=== PATIENT | male | born 1970 | race African-American/Black ===

== ENCOUNTER 2017-10-30 05:25 | Day surgery (SDC) | payer OTHER ==
[~2017-10-30] VITALS: Ht 172.7 cm; Wt 80.7 kg
--- NOTE | ~2017-10-30 | OP ---
PATIENT NAME: JUAN STREET MEDICAL RECORD: [id number] :70 LOCATION:DJonathanOPS ADMISSION DATE: SURGEON: JM COMER MD DATE OF OPERATION: 10/30/2017 PREOPERATIVE DIAGNOSIS: End-stage renal disease without chronic access for hemodialysis. POSTOPERATIVE DIAGNOSES: End-stage renal disease without chronic access for hemodialysis with several large side branches. PROCEDURES: 1. Left upper extremity primary arteriovenous fistula for hemodialysis access. 2. Open ligation of side branches times 2. SURGEON: Jm Comer MD PLUNGER SHOVEL OPERATOR: None. BLOOD LOSS: Minimal. ANESTHESIA: General. COMPLICATIONS: None. The risks, possible complications and alternatives to the procedure were explained to the patient. He elects to proceed. OPERATIVE COURSE: The patient was conveyed to the operating room electively on 10/30/2017. General anesthesia was induced by the anesthesia staff. The left upper extremity was abducted at 90 degrees to the patient's trunk. I interrogated the left upper extremity with a sterile hand held ultrasound. The patient had a very high brachial artery bifurcation into the radial and arterial branches. This was several inches above the elbow. There were also several large side branches on the medial aspect of the left forearm. A transverse incision was accomplished in the left cubital fossa. Sharp dissection was carried down to the level of a generous cephalic vein, which was of excellent quality. There were paired antebrachial veins, which were ligated doubly. There was a deep branch, which was ligated as well. The median basilic vein was going to be our target vein. This was ligated in the medial aspect of the arm and then divided proximal to this. I then bevelled the median basilic vein. I dissected down to the brachial artery, which was of good quality. It was encircled with vessel loops. Intravenous heparin was given. A longitudinal arteriotomy was accomplished. I punched out some ovals in the artery with an aortic punch. A side-to-end arteriovenous anastomosis was then fashioned with a running 7-0 Prolene suture. I flushed out through the fistula, which was a radial artery to median basilic fistula. The retrograde flow was out through the median basilic vein, a crossover to the cephalic vein where there was antegrade flow. There was an excellent thrill. Babatunde was added for additional hemostasis. There were 2 side branches in the forearm. Transverse incisions were accomplished over these side branches and I dissected down to the venous OPERATIVE REPORT [id number] YENIFER,EDWARD structures, which were encircled and tied with small silk ties. The 2 smaller incisions were closed with an interrupted intracuticular 4-0 Vicryls. The main incision was closed with interrupted 3-0 Vicryls. Then, a running intracuticular 4-0 Vicryl. Sterile dressings were applied. The patient was then extubated and conveyed to the post-anesthesia care unit where he was in stable condition. I will plan that he will be dismissed back to the [place] [facility] with hydrocodone for pain. There is no need for him to follow up with me in the [place] [facility] unless he develops a complication related to this operative procedure. TRANSINT:[id number] Voice Confirmation ID: [id number] DOCUMENT ID: [id number] JM COMER MD at 1717 CC: [id number] DICTATION DATE: 10/30/17 1031 SUBSTATION OPERATOR CHIEF: 10/30/17 1055 [facility] 10/30/17 [id number] [place] [address]
[2017-10-30 06:29] LABS: BASOPHILS 0.6 % (0-2); EOSINOPHILS 3.5 % (0-7); HEMATOCRIT 42.1 % (42.0-54.0); IMMATURE GRANULOCYTES 0.2 % (0-5); LYMPHOCYTES 22.1 % (15-50); MCH 28.3 pg (26.0-34.0); MCHC 33.3 g/dL (31.0-37.0); MCV 85.2 fL (80.0-100.0); MEAN PLATELET VOLUME 10.5 fL (7.4-10.4); MONOCYTES 5.8 % (2-11); NEUTROPHILS 67.8 % (40-80); PLATELET COUNT 179 10x3/uL (130-400); RBC 4.94 10x6/uL (4.20-6.10); RDW 14.6 % (11.5-14.5); WBC 6.5 10x3/uL (4.8-10.8)
[2017-10-30] MEDS ORDERED: BAYER CHEWABLE81 MG PO ×2 (06:39→19:52)
[2017-10-30] MEDS ORDERED: LIPITOR20 MG PO ×2 (06:40→19:53)
[2017-10-30] MEDS ORDERED: CARDIZEM CD240 MG (06:41)
[2017-10-30] MEDS ORDERED: COREG25 MG (06:41)
[2017-10-30] MEDS ORDERED: ISOSORBIDE MONO30 M1 (06:42)
[2017-10-30] MEDS ORDERED: HYDRALAZINE HCL50 MG (06:42)
[2017-10-30] MEDS ORDERED: COZAAR100 MG (06:43)
[2017-10-30] MEDS ORDERED: METOLAZONE2.5 MG (06:44)
[2017-10-30] MEDS ORDERED: XALATAN 0.0052.5 ML (06:44)
[2017-10-30 06:47] LABS: CARBON DIOXIDE 25.1 mmol/L (21.0-32.0); CREATININE - SERUM 12.9 mg/dL (0.6-1.3)
[2017-10-30 06:48] LABS: POTASSIUM - SERUM 6.1 mmol/L (3.5-5.1)
[2017-10-30] MEDS ORDERED: HUMULIN 70100 UNIT/1 SC ×2 (06:49→19:50)
[2017-10-30 07:03] LABS: APTT 30.1 SECONDS (22.8-39.4)
[2017-10-30 07:10] LABS: INR 0.99 (0.85-1.17); PROTIME 12.7 SECONDS (11.6-15.0)
[2017-10-30 07:19] VITALS: BP 199/118; Ht 172.7 cm; Wt 80.7 kg
[2017-10-30] MEDS ORDERED: HYDRALAZINE HCL50 MG PO (19:50)
[2017-10-30] MEDS ORDERED: BENZTROPINE MESY1 MG PO (19:51)
[2017-10-30] MEDS ORDERED: METOLAZONE2.5 MG PO (19:51)
[2017-10-30] MEDS ORDERED: HALDOL DECA100 MG/M1 IM (19:51)
[2017-10-30] MEDS ORDERED: ISOSORBIDE MONO30 M1 PO (19:52)
[2017-10-30] MEDS ORDERED: XALATAN 0.0052.5 ML EACH EYE (19:53)
[2017-10-30] MEDS ORDERED: COZAAR100 MG PO (19:53)
[2017-10-30] MEDS ORDERED: COREG 3.1253.125 MG PO (19:53)
[2017-10-30] MEDS ORDERED: CARDIZEM CD240 MG PO (19:54)
== END 2017-10-30 14:00 | disposition home or self-care (01) ==
LOC: D.OPS 05:25
PROVIDERS: Anesthesiology
DX: N18.6 End stage renal disease (principal); Z01.812 Encounter for preprocedural laboratory examination

== ENCOUNTER 2017-10-30 16:59 | Inpatient (IN) | payer MEDICAID ==
[~2017-10-30] VITALS: Ht 172.7 cm; Wt 782.7 kg
[~2017-10-30 16:59] MED LIST: BAYER CHEWABLE81 MG PO; CARDIZEM CD240 MG; COREG25 MG; COZAAR100 MG; HUMULIN 70100 UNIT/1 SC; HYDRALAZINE HCL50 MG; ISOSORBIDE MONO30 M1; LIPITOR20 MG PO; METOLAZONE2.5 MG; XALATAN 0.0052.5 ML
[2017-10-30 17:28] VITALS: BP 246/135
[2017-10-30 17:55] LABS: BASOPHILS 0.3 % (0-2); EOSINOPHILS 0.2 % (0-7); HEMATOCRIT 42.7 % (42.0-54.0); HEMOGLOBIN 14.2 g/dL (13.5-17.5); IMMATURE GRANULOCYTES 0.2 % (0-5); LYMPHOCYTES 6.5 % (15-50); MCH 28.3 pg (26.0-34.0); MCHC 33.3 g/dL (31.0-37.0); MCV 85.2 fL (80.0-100.0); MEAN PLATELET VOLUME 10.5 fL (7.4-10.4); MONOCYTES 1.8 % (2-11); PLATELET COUNT 183 10x3/uL (130-400); RBC 5.01 10x6/uL (4.20-6.10); RDW 14.8 % (11.5-14.5)
[2017-10-30 17:58] LABS: WBC 9.8 10x3/uL (4.8-10.8)
[2017-10-30 18:04] VITALS: BP 237/134
[2017-10-30 18:07] LABS: ALBUMIN 3.3 g/dL (3.4-5.0); BILIRUBIN - TOTAL 0.31 mg/dL (0.2-1.3); CALCIUM 7.9 mg/dL (8.5-10.1); CARBON DIOXIDE 23.2 mmol/L (21.0-32.0); PROTEIN - SERUM 7.3 g/dL (6.4-8.2)
[2017-10-30 18:22] LABS: POTASSIUM - SERUM 8.2 mmol/L (3.5-5.1)
[2017-10-30 19:33] VITALS: BP 238/132
[2017-10-30] MEDS ORDERED: HYDRALAZINE HCL50 MG PO (19:50)
[2017-10-30] MEDS ORDERED: HUMULIN 70100 UNIT/1 SC (19:50)
[2017-10-30] MEDS ORDERED: BENZTROPINE MESY1 MG PO (19:51)
[2017-10-30] MEDS ORDERED: METOLAZONE2.5 MG PO (19:51)
[2017-10-30] MEDS ORDERED: HALDOL DECA100 MG/M1 IM (19:51)
[2017-10-30] MEDS ORDERED: ISOSORBIDE MONO30 M1 PO (19:52)
[2017-10-30] MEDS ORDERED: BAYER CHEWABLE81 MG PO (19:52)
[2017-10-30] MEDS ORDERED: LIPITOR20 MG PO (19:53)
[2017-10-30] MEDS ORDERED: COREG 3.1253.125 MG PO (19:53)
[2017-10-30] MEDS ORDERED: XALATAN 0.0052.5 ML EACH EYE (19:53)
[2017-10-30] MEDS ORDERED: COZAAR100 MG PO (19:53)
[2017-10-30] MEDS ORDERED: CARDIZEM CD240 MG PO (19:54)
[2017-10-30 20:10] VITALS: BP 250/137
[2017-10-30 20:38] LABS: HEMATOCRIT 44.4 % (42.0-54.0); HEMOGLOBIN 14.8 g/dL (13.5-17.5)
[2017-10-30 21:34] VITALS: BP 248/132
[2017-10-30 23:08] VITALS: BP 179/112
[2017-10-31] VITALS (14 sets, daily range): BP systolic 102–171; BP diastolic 62–101; Ht 172.7 cm; Wt 782.7 kg
[2017-10-31 05:35] LABS: HEMATOCRIT 40.1 % (42.0-54.0); HEMOGLOBIN 13.2 g/dL (13.5-17.5)
[2017-10-31 08:36] LABS: HEMATOCRIT 39.1 % (42.0-54.0)
[2017-11-01 00:46] VITALS: BP 129/73
[2017-11-01 05:03] VITALS: BP 141/74
[2017-11-01 16:16] LABS: HEMATOCRIT 34.4 % (42.0-54.0); HEMOGLOBIN 11.6 g/dL (13.5-17.5); LYMPHOCYTES 17.6 % (15-50); MCH 28.4 pg (26.0-34.0); MCHC 33.7 g/dL (31.0-37.0); MCV 84.3 fL (80.0-100.0); MEAN PLATELET VOLUME 10.1 fL (7.4-10.4); NEUTROPHILS 73.6 % (40-80); PLATELET COUNT 180 10x3/uL (130-400); RBC 4.08 10x6/uL (4.20-6.10); RDW 14.3 % (11.5-14.5)
[2017-11-01 16:37] LABS: ANION GAP 16.4 mmol/L (8-16); CALCIUM 7.4 mg/dL (8.5-10.1); CARBON DIOXIDE 26.7 mmol/L (21.0-32.0); CREATININE - SERUM 13.8 mg/dL (0.6-1.3)
[2017-11-01 16:41] LABS: POTASSIUM - SERUM 6.1 mmol/L (3.5-5.1)
[2017-11-01 21:35] VITALS: BP 154/77
[2017-11-02 01:10] VITALS: BP 155/82
[2017-11-02 05:05] VITALS: BP 153/83
[2017-11-02 05:38] LABS: BASOPHILS 0.4 % (0-2); EOSINOPHILS 2.2 % (0-7); HEMATOCRIT 35.8 % (42.0-54.0); HEMOGLOBIN 11.9 g/dL (13.5-17.5); IMMATURE GRANULOCYTES 0.3 % (0-5); LYMPHOCYTES 19.9 % (15-50); MCH 28.1 pg (26.0-34.0); MCHC 33.2 g/dL (31.0-37.0); MCV 84.6 fL (80.0-100.0); MEAN PLATELET VOLUME 11.1 fL (7.4-10.4); MONOCYTES 7.6 % (2-11); NEUTROPHILS 69.6 % (40-80); PLATELET COUNT 180 10x3/uL (130-400); RBC 4.23 10x6/uL (4.20-6.10); RDW 14.4 % (11.5-14.5); WBC 6.7 10x3/uL (4.8-10.8)
[2017-11-02 05:47] LABS: ANION GAP 19.2 mmol/L (8-16); CALCIUM 7.6 mg/dL (8.5-10.1); CARBON DIOXIDE 24.6 mmol/L (21.0-32.0); CREATININE - SERUM 14.2 mg/dL (0.6-1.3)
[2017-11-02 06:02] LABS: POTASSIUM - SERUM 6.8 mmol/L (3.5-5.1)
[2017-11-02 08:16] VITALS: BP 152/66
[2017-11-02 15:29] VITALS: BP 138/72
== END 2017-11-02 20:03 | DRG 919 ==
LOC: D.ER 16:59 → D.EDHOLD 19:17 → D.M2 19:17 → D.ICU 19:17 → D.M2 19:17 → D.ICU 23:24 → D.M2 10-31 13:19
PROVIDERS: Emergency Medicine; Internal Medicine Nephrology
PROC: 5A1D70Z Performance of Urinary Filtration, Intermittent, Less than 6 Hours Per Day (ICD-10-PCS; principal; 2017-10-30)
DX: T85.838A Hemorrhage due to other internal prosthetic devices, implants and grafts, initial encounter (principal); N18.6 End stage renal disease; K92.0 Hematemesis; I12.0 Hypertensive chronic kidney disease with stage 5 chronic kidney disease or end stage renal disease; E11.22 Type 2 diabetes mellitus with diabetic chronic kidney disease; Z99.2 Dependence on renal dialysis; E11.40 Type 2 diabetes mellitus with diabetic neuropathy, unspecified; E87.5 Hyperkalemia; F31.9 Bipolar disorder, unspecified; Z91.15 Patient's noncompliance with renal dialysis; T88.4XXA Failed or difficult intubation, initial encounter

== ENCOUNTER → 2017-12-20 12:15 | Outpatient (CLI) | payer OTHER ==
[~2017-12-20] VITALS: Ht 172.7 cm; Wt 85.0 kg
--- NOTE | ~2017-12-20 | OP ---
PATIENT NAME: JUAN STREET MEDICAL RECORD: [id number] :70 LOCATION:D.CAT ADMISSION DATE: SURGEON: LALA BARNES MD DATE OF OPERATION: 12/20/2017 PROCEDURES: 1. Left heart catheterization. 2. Selective coronary angiography. 3. Left ventriculogram. 4. Intravascular ultrasound. INDICATION: Chest pain compatible with angina. PROCEDURE IN DETAIL: After informed consent was obtained and after detailed explanation of risks, benefits as well as alternative therapies, the patient elected to proceed with angiogram and heart catheterization. The right femoral area was prepped and draped in normal sterile fashion. Right femoral artery was cannulated via modified Seldinger technique with placement of 6-[place] Islander sheath. All catheters exchanged through this sheath. FINDINGS: The left ventriculogram was performed in standard 30-degree EHRNANDEZ view, reveals good cardiac wall motion throughout all segments. Overall ejection fraction estimated 60%. SELECTIVE CORONARY ANGIOGRAPHY: 1. Left main is with no significant angiographic disease. 2. Left anterior descending has a questionable stenosis; however, intravascular ultrasound revealed that this is only 50% in the mid vessel. 3. Left circumflex has moderate irregularities, but no flow-limiting stenosis. 4. Right coronary has moderate irregularities, but no flow-limiting stenosis. OVERALL IMPRESSION: Mild to moderate coronary artery disease present. No flow-limiting stenosis. Continue medical management of the coronary artery disease and cardiac risk factors. TRANSINT:[id number] Voice Confirmation ID: [id number] DOCUMENT ID: [id number] LALA BARNES MD at 1950 CC: [id number] DICTATION DATE: 12/20/17 1604 ROTARY VENEER MACHINE OPERATOR: 12/20/17 1643 DEP CLI 12/20/17 [place] [id number] [place] [id number]
--- NOTE | ~2017-12-20 | HEMODYNAMI ---
PATIENT:JUAN STREET MEDICAL RECORD: [id number] : 70 LOCATION:DESME ADMISSION DATE: 12/20/17 Generatedon:12/20/201716:07 Patient name: JUAN STREET Patient #: [id number] SSN: : 1970 Date of study: 12/20/2017 Page: Of Hemodynamic Procedure Report Patient Data Patient Demographics Procedure consent was obtained First Name: JUAN Gender: Male Last Name: YENIFER : 1970 Patient #: [id number] Age: 47 year(s) Race: Black Additional ID: [id number] Contact details [address]: [address] [place] [address] State: [place] City: [place] Zip code: [address] Past Medical History Allergies Allergen Reaction Date Comments Reported Other allergy 12/20/2017 LISINOPRIL Admission Admission Data Admission Date: 12/20/2017 Admission Time: 12:15 Lab Results Lab Result Date: 12/20/2017 Lab Result Time: 0:00 Biochemistry Name Units Result Min Max BUN mg/dl 24 --(----)-* 7 18 Creatinine mg/dl 5.7 --(----)-* 0.6 1.3 CBC Name Units Result Min Max Hemoglobin g/dl 10.3 *-(----)-- 13.5 17.5 Procedure Procedure Types Cath Procedure Diagnostic Procedure [facility] w/Coronaries FFR/IVUS Intra-Coronary IVUS Initial Procedure Description Procedure Date Procedure Date: 12/20/2017 Procedure Start Time: 15:51 Procedure End Time: 16:03 Procedure Staff Name Function Enrrique Cristina MD Performing Physician Leonela Veras RT Monitor Slim Boateng RN Nurse Marian Merritt RT Scrub Procedure Data Cath Procedure Fluoroscopy Diagnostic fluoroscopy Total fluoroscopy Time: 1.9 time: 1.9 min min Diagnostic fluoroscopy Total fluoroscopy dose: 535 dose: 535 mGy mGy Contrast Material Contrast Material Type Amount (ml) Isovue 300 64 Entry Location Entry Primary Successful Side Size Upsize Upsize Entry Closure Succes sful Closure Location (Fr) 1 (Fr) 2 (Fr) Remarks Device Remarks Femoral Right 5 Fr 6 Fr Exoseal artery Short Estimated blood loss: 5 ml Diagnostic catheters Device Type Used For End Catheter Placement MULTIPACK Pigtail 5 Fr Procedure catheter MULTIPACK JL 4.0 5Fr Procedure catheter MULTIPACK 3DRC 5Fr Procedure catheter Procedure Complications No complications Procedure Medications Medication Administration Route Dosage 0.9% NaCl I.V. 10 ml/hr Oxygen etCO2 Nasal cannula 2 l/min Heparin Flush Bag added to field 2 bags (1000units/500ml NS) Lidocaine 2% added to field 20 Versed I.V. 1 mg Fentanyl I.V. 50 mcg Versed I.V. 1 mg Fentanyl I.V. 50 mcg Hemodynamics Rest HGB: 10.3 (g/dl) Heart Rate: 86 (bpm) Snapshots Pre Cath Intra NCS Post Cath Vital Signs Time Heart Resp SPO2 etCO2 NIBP (mmHg) Rhythm Pain Sedation Rate (ipm) (%) (mmHg) Status Level (bpm) 15:31:58 83 19 97 28.5 205/109(174) NSR 0 (11) 10(A) , No pain 15:36:51 81 27 97 19.5 184/110(146) NSR 0 (11) 10(A) , No pain 15:41:44 77 23 97 26.9 194/100(161) NSR 0 (11) 10(A) , No pain 15:46:35 76 20 98 26.2 192/100(163) NSR 0 (11) 10(A) , No pain 15:51:26 78 20 98 25.5 178/103(150) NSR 0 (11) 10(A) , No pain 15:56:14 77 16 98 29.9 191/104(157) NSR 0 (11) 9(A) , No pain 16:01:01 77 20 99 28.4 186/109(155) NSR 0 (11) 9(A) , No pain Medications Time Medication Route Dose Verified Delivered Reason Notes Eff ectiveness by by 15:33:43 0.9% NaCl I.V. 10 Slim Slim Per ml/hr Tasneem oscar RN RN 15:33:52 Oxygen etCO2 2 Slim Slim Per Nasal l/min Tasneem Boateng physician cannula RN RN 15:34:03 Heparin Flush added 2 Slim Slim used for Bag to bags Lorigan Lorigan procedure (1000units/500ml field RN RN NS) 15:34:15 Lidocaine 2% added 20ml Slim Slim for local to vial Lorigan Lorigan anesthetic field RN RN 15:48:35 Versed I.V. 1 mg Slim Slim for Lorigan Lorigan sedation RN RN 15:48:45 Fentanyl I.V. 50 Slim Slim for mcg Lorigan Lorigan sedation RN RN 15:53:39 Versed I.V. 1 mg Slim Slim for Lorigan Lorigan sedation RN RN 15:53:46 Fentanyl I.V. 50 Slim Slim for mcg Lorigan Lorigan sedation RN nuclear medicine technician Log Time Note 15:13:04 Time tracking: Regular hours (M-F 7:00 - 5:00) 15:13:10 Plan of Care:Hemodynamics will remain stable., Cardiac rhythm will remain stable., Comfort level will be maintained., Respiratory function will remain adequate., Patient/ family verbilizes understanding of procedure., Procedure tolerated without complication., Recovers from procedure without complications.. 15:13:13 Slim Boateng RN sent for patient. Start room use. 15:22:01 Patient received from ED to CCL 1 Alert and oriented. Tansferred to table in Supine position. 15:22:02 Warm blankets applied, and alejandro hugger turned on for patient comfort. 15:22:03 Correct patient and procedure confirmed by team. 15:22:04 Signed procedure consent form obtained from patient. 15:22:05 ECG and BP/O2 sat monitors applied to patient. 15:22:05 Full Disclosure recording started 15:30:09 Vital chart was started 15:30:10 Baseline sample Acquired. 15:30:16 Rhythm: sinus rhythm 15:30:21 H&P Date Dictated: 12/20/2017 ER History on chart.. 15:30:22 Pre-procedure instructions explained to patient. 15:30:22 Pre-op teaching completed and patient verbalized understanding. 15:30:34 GUARDS WITH PATIENT 15:30:56 Patient allergic to Other allergyLISINOPRIL 15:30:58 Is the patient allergic to Iodine/contrast media? No. 15:30:59 Is patient on blood thinner?Yes 15:31:09 PRELOADED ON PLAVIX 15:31:11 Patient diabetic? Yes. 15:31:13 If diabetic: On Metformin? No 15:31:16 Previous problem with sedation/anesthesia? No ? 15:31:17 Snore? Yes 15:31:18 Sleep apnea? No 15:31:19 Deviated septum? No 15:31:24 Opens mouth fully? Yes 15:31:25 Sticks out tongue? Yes 15:31:27 Airway obstruction? No ? 15:31:28 Dentures? No ? 15:31:38 Pre procedure: right dorsailis pedis pulse 2+ Normal; easily identifiable; not easily obliterated 15:31:45 IV patent on arrival in right wrist with 0.9% NaCl at [facility]. 15:33:43 0.9% NaCl 10 ml/hr I.V. was administered by Slim Boateng RN; Per physician; 15:33:52 Oxygen 2 l/min etCO2 Nasal cannula was administered by Slim Boateng RN; Per physician; 15:34:03 Heparin Flush Bag (1000units/500ml NS) 2 bags added to field was administered by Slim Boateng RN; used for procedure; 15:34:15 Lidocaine 2% 20ml vial added to field was administered by Slim Boateng RN; for local anesthetic; 15:37:12 Lab Result : Creatinine 5.7 mg/dl 15:37:12 Lab Result : BUN 24 mg/dl 15:37:12 Lab Result : Hemoglobin 10.3 g/dl 15:37:16 Lab results completed and on chart. 15:37:19 Right groin area was prepped with chlora-prep and draped in sterile fashion 15:37:36 PT. RESERVE LEFT ARM- DIALYSIS 15:37:39 Alarms reviewed by R. N. 15:37:39 Sharps counted by scrub and verified by R.N. 15:40:39 Use device set Femoral Dx 15:40:41 ACIST Syringe (81716) opened to sterile field. 15:40:41 Bag Decanter () opened to sterile field. 15:40:42 ACIST Hand Control (75230) opened to sterile field. 15:40:43 ACIST Manifold (07797) opened to sterile field. 15:40:44 Tegaderm 4 x 4 (1626W) opened to sterile field. 15:40:45 Medline Cath Pack ([id number]) opened to sterile field. 15:40:47 DIAGNOSTIC WIRE .035 260cm J wire (487004) opened to sterile field. 15:40:49 DIAGNOSTIC Multipack 5Fr catheter set (YB9362) opened to sterile field. 15:40:51 SHEATH Prelude 5Fr 0.035 (SDW-1M-07-035) opened to sterile field. 15:41:25 Zero performed for pressure channel P1 15:47:54 --------ALL STOP TIME OUT------ 15:47:54 Final Timeout: patient, procedure, and site verified with staff and physician. All members of the team are in agreement. 15:47:56 Right groin site verified by team. 15:47:58 Physical assessment completed. ASA score P 2 - A patient with mild systemic disease as per Enrrique Cristina MD. 15:48:01 Sedation plan: IV Moderate Sedation Medication:Versed, Fentanyl 15:48:35 Versed 1 mg I.V. was administered by Slim Boateng RN; for sedation; 15:48:45 Fentanyl 50 mcg I.V. was administered by Slim Boateng RN; for sedation; 15:51:19 Procedure started. 15:51:34 Local anesthetic to right femoral artery with Lidocaine 2% by Enrrique Cristina MD.INITIAL ACCESS ONLY 15:52:12 A 5 Fr sheath was inserted into the Right Femoral artery 15:52:35 A MULTIPACK Pigtail 5 Fr catheter was advanced over the wire and used for Procedure. 15:52:52 LV gram done using HERNANDEZ 15::54 Injector settings: Ml/sec: 10, Volume: 20, 15:53:09 EF : 40 % 15:53:10 Catheter removed. 15:53:14 A MULTIPACK JL 4.0 5Fr catheter was advanced over the wire and used for Procedure. 15:53:39 Versed 1 mg I.V. was administered by Slim Boateng RN; for sedation; 15:53:46 Fentanyl 50 mcg I.V. was administered by Slim Boateng RN; for sedation; 15:54:43 LCA angiography performed. 15:54:45 Catheter removed. 15:54:51 A MULTIPACK 3DRC 5Fr catheter was advanced over the wire and used for Procedure. 15:55:38 RCA angiography performed. 15:55:40 Catheter removed. 15:56:26 SHEATH 6FR Truro (YVR569) opened to sterile field. 15:56:26 CHOICE PT Extra Support 182cm wire ([id number]) opened to sterile field. 15:56:26 INFLATOR Merit BasixCompak (XG8461) opened to sterile field. 15:56:38 GUIDE 6FR XBLAD 4.0 catheter ([id number]) opened to sterile field. 15:56:46 Swink [place] IVUS Catheter (90096E) opened to sterile field. 15:56:53 Sheath upsized to a 6 Fr Short. 15:57:02 6 Fr XBLAD 4 guide catheter was inserted over the wire 15:58:11 CHOICE ES 182 wire advanced. 15:58:13 Wire advanced across lesion. 15:58:29 IVUS catheter advanced over wire. 15:59:06 IVUS pass to LAD lesion performed. 15:59:11 IVUS catheter removed over wire. 16:01:07 Wire removed. 16:01:08 Guide catheter removed. 16:01:14 EXOSEAL 6Fr (EX600) opened to sterile field. 16:01:25 Sheath removed intact; hemostasis achieved with Exoseal to the Right Femoral artery. 16:01:27 Procedure ended.(Physican Out) 16:02:16 Fluoroscopy time 01.90 minutes. 16:02:20 Fluoroscopy dose: 535 mGy 16:02:20 Flurop Dose total: 535 16:02:24 Contrast amount:Isovue 300 64ml. 16:02:26 Sharps counted by scrub and verified by R.N. 16:02:29 Post-op/insertion site Right Femoral artery dressed using a 4 x 4 and Tegaderm. 16:02:34 Post right femoral artery:stable, soft, clean and dry 16:02:37 Post-procedure physical assessment completed. ASA score P 2 - A patient with mild systemic disease as per Enrrique Cristina MD. 16:02:40 Post procedure rhythm: sinus rhythm 16:02:46 Estimated blood loss: 5 ml 16:02:47 Post procedure instruction explained to patient.Patient verbalizes understanding. 16:02:48 Patient needs reinforcement of post procedure teaching. 16:03:11 Procedure type changed to Cath procedure, Diagnostic procedure, LHC, LHC w/Coronaries, FFR/IVUS, Intra-Coronary IVUS Initial 16:03:33 Procedure and supply charges have been captured, reviewed, submitted and are correct. 16:03:36 Procedure Complication : No complications 16:03:38 Vital chart was stopped 16:03:38 See physician's report for complete and final results. 16:03:40 Report given to Pre/Post Procedure Room. 16:03:42 Patient transfered to Pre/Post Procedure Room with Bed. 16:03:44 Procedure ended. 16:03:44 Full Disclosure recording stopped 16:03:47 End room use (Document Last) Device Usage Item Name Manufacture Quantity Catalog Number Hospital Part Current M inimal Lot# / Charge Number Stock Stock Serial# Code ACIST Syringe Acist 1 99707 270573 804262 325160 2 0 (72431) [employer] Bag Decanter Microtek 1 2001S 001413 63316 154987 5 (2001S) Medical Inc. ACIST Hand Acist 1 48192 921084 775059 160585 5 Control (85587) Medical Systems Inc ACIST Manifold Acist 1 22093 573111 658914 002987 5 (32308) Medical Systems Inc Tegaderm 4 x 4 3M 1 1626W 795353 251351 274958 5 (1626W) Medline Cath Cardinal 1 [id number] 188854 59820 912429 5 Pack Health ([id number]) DIAGNOSTIC WIRE [facility] [place] 1 877190 082658 919867 323611 3 0 .035 260cm J wire (237077) DIAGNOSTIC Cardinal 1 WM5241 091548 49150 449885 3 0 Multipack 5Fr Health catheter set (ZI0207) SHEATH Prelude Merit 1 ISW-4F-00-035 441375 332067 518575 5 5Fr 0.035 Medical (IUT-9S-64-035) MULTIPACK Cardinal 1 647599 5 Pigtail 5 Fr Health catheter MULTIPACK JL Cardinal 1 891088 5 4.0 5Fr Health catheter MULTIPACK 3DRC Cardinal 1 671857 5 5Fr catheter Health SHEATH 6FR Terumo 1 PSJ994 843735 358433 096591 4 0 Truro (XKC201) CHOICE PT Extra Lynch 1 [id number] 045583 938436 135769 5 Support 182cm Scientific wire ([id number]) INFLATOR Merit Merit 1 EC6942 901462 740031 232898 1 5 [facility] (XS2319[facility] GUIDE 6FR XBLAD Cardinal 1 [id number] 867552 864274 678661 3 4.0 catheter Health (81069354) [facility] 1 [id number] 274786 804136 122190 8 [place] IVUS Catheter (12279C) EXOSEAL 6Fr Cardinal 1 EX600 457412 810500 430732 1 0 (EX600) Health Signature Audit Sweeny Stage Time Signature Unsigned Intra-Procedure 12/20/2017 Leonela Veras 4:07:33 PM RT(R) Signatures Monitor : Leonela Veras Signature : RT Date : Time : [place] [id number] [place] [address]
--- NOTE | ~2017-12-20 | HP ---
PATIENT: JUAN STREET MEDICAL RECORD: [id number] ACCOUNT: [id number] LOCATION:[place] : 70 ADMISSION DATE: 12/20/17 PCP: No PCP HISTORY AND PHYSICAL EXAMINATION DIAGNOSES: 1. Unstable angina. 2. Coronary artery disease. 3. Previous percutaneous transluminal coronary angioplasty stent 2 years ago at [facility]. 4. Abnormal ECG. 5. Hypertension. 6. End-stage renal failure, on dialysis. HISTORY OF PRESENT ILLNESS: Kel is an inmate at [facility]. He presents with 1 week of increasing episodes of chest discomfort. He has T-wave inversions on his EKG. He does have a history of coronary artery disease. Last PTCA stent was 2 years ago at [facility]. PHYSICAL EXAMINATION: GENERAL APPEARANCE: Well-nourished, well-developed, appears stated age. Level of distress, comfortable. PSYCHIATRIC: Mental status, alert, normal affect. Orientation, oriented to time, place and person. EYES: Lids and conjunctiva, noninjected. No discharge, no pallor. ENT: Lips, teeth, gums, normal dentition. Oropharynx, no cyanosis, no pallor. NECK: Carotid arteries, bilateral normal upstroke, no bruits, no thrills. JUGULAR VEINS: No jugular venous pressure or distention. CERVICAL LYMPH NODES: Nontender, nonenlarged. THYROID: Not enlarged. Nontender. No nodules. LUNGS: Respiratory effort, unlabored. CHEST: Normal curvature. No thoracic deformity. No chest wall tenderness. Percussion, resonant. Auscultation, clear. No wheezes, no rales, no rhonchi. CARDIOVASCULAR: Precordial exam, nondisplaced. No heaves or pericardial thrills. Rate and rhythm, regular. Heart sounds, normal S1, normal S2. No S3, no gallop, no rub. Systolic murmur, not heard. Diastolic murmur, not heard. EXTREMITIES: No cyanosis, no edema. Peripheral pulses, full and equal in all extremities, except as noted. No bruits appreciated. ABDOMEN: Soft, nondistended. Normal aorta. No bruit. Nontender. No masses. Liver, nontender, no hepatomegaly. Spleen, nontender, no splenomegaly. MUSCULOSKELETAL: No joint tenderness. No joint swelling. No erythema. NEUROLOGICAL: Normal gait, normal strength, normal tone. SKIN: Warm and dry. OVERALL IMPRESSION: Unstable angina with abnormal ECG, most likely he has recurrent hemodynamically significant coronary artery disease. We will proceed with coronary angiography. Further care depends upon the findings of the angiography. TRANSINT:[id number] Voice Confirmation ID: [id number] DOCUMENT ID: [id number] HISTORY AND PHYSICAL [id number] JUAN STREET JEFFREY MD at 1605 CC: [id number] DICTATION DATE: 12/20/17 1307 TOURIST HOME KEEPER: 12/20/17 1315 [facility] [address] [place] [address]
[~2017-12-20 12:15] MED LIST changes: +APAP325 MG PO; +BENZTROPINE MESY1 MG PO; +CARDIZEM CD240 MG PO; +COREG 3.1253.125 MG PO; +COZAAR100 MG PO; +HALDOL DECA100 MG/M1 IM; +HYDRALAZINE HCL50 MG PO; +ISOSORBIDE MONO30 M1 PO; +METOLAZONE2.5 MG PO; +ULTRAM50 MG PO; +XALATAN 0.0052.5 ML EACH EYE
[2017-12-20 12:26] VITALS: Ht 172.7 cm; Wt 85.0 kg
[2017-12-20 13:00] LABS: BASOPHILS 0.5 % (0-2); EOSINOPHILS 2.8 % (0-7); HEMATOCRIT 31.3 % (42.0-54.0); HEMOGLOBIN 10.3 g/dL (13.5-17.5); IMMATURE GRANULOCYTES 0.3 % (0-5); MCH 27.6 pg (26.0-34.0); MCHC 32.9 g/dL (31.0-37.0); MCV 83.9 fL (80.0-100.0); MEAN PLATELET VOLUME 8.8 fL (7.4-10.4); MONOCYTES 7.2 % (2-11); NEUTROPHILS 70.2 % (40-80); PLATELET COUNT 173 10x3/uL (130-400); RBC 3.73 10x6/uL (4.20-6.10); RDW 14.3 % (11.5-14.5); WBC 6.2 10x3/uL (4.8-10.8)
[2017-12-20 13:12] LABS: ALBUMIN 2.5 g/dL (3.4-5.0); ALKALINE PHOSPHATASE 45 U/L (46-116); ALT (SGPT) 16 U/L (10-68); BILIRUBIN - TOTAL 0.27 mg/dL (0.2-1.3); CALC OSMOLALITY 276 mosm/kg (275-300); CALCIUM 7.5 mg/dL (8.5-10.1); CHLORIDE - SERUM 105 mmol/L (98-107); CREATININE - SERUM 5.7 mg/dL (0.6-1.3); GLUCOSE 81 mg/dL (74-106); POTASSIUM - SERUM 4.1 mmol/L (3.5-5.1); PROTEIN - SERUM 5.9 g/dL (6.4-8.2); SODIUM 137 mmol/L (136-145); UREA NITROGEN 24 mg/dL (7-18); eGFR NON AFRICAN AMERICAN 11 mL/min (90-120)
[2017-12-20 13:23] LABS: AMYLASE - SERUM 51 U/L (25-115); CKMB 2.2 U/L (0.0-3.6); CREATINE KINASE 76 UL (21-232); LIPASE 65 U/L (73-393); TROPONIN-I 0.029 ng/mL (0.000-0.060)
[2017-12-20 14:56] VITALS: BP 194/100
== END | disposition home or self-care (01) ==
LOC: D.CATH 12:15 → D.ER 12:15 → EDSTATUS 13:53
PROVIDERS: Family Medicine
DX: I25.110 Atherosclerotic heart disease of native coronary artery with unstable angina pectoris (principal); Z95.5 Presence of coronary angioplasty implant and graft; R94.31 Abnormal electrocardiogram [ECG] [EKG]; I12.0 Hypertensive chronic kidney disease with stage 5 chronic kidney disease or end stage renal disease; N18.6 End stage renal disease; Z99.2 Dependence on renal dialysis; Z01.812 Encounter for preprocedural laboratory examination

== ENCOUNTER 2017-12-21 12:49 | Inpatient (IN) | payer MEDICAID ==
[~2017-12-21] VITALS: Ht 172.7 cm; Wt 79.3 kg
[2017-12-21] VITALS (11 sets, daily range): BP systolic 157–197; BP diastolic 78–96; BMI 26.7
--- NOTE | ~2017-12-21 | HP ---
PATIENT: JUAN STREET MEDICAL RECORD: [id number] ACCOUNT: [id number] LOCATION:[facility] : 70 ADMISSION DATE: 12/21/17 PCP: No PCP HISTORY AND PHYSICAL EXAMINATION DIAGNOSES: 1. Retroperitoneal bleed. 2. Anemia. 3. Pseudoaneurysm, right femoral. 4. Recent cardiac catheterization. 5. Smoking. 6. COPD. 7. Hypertension. 8. Hyperlipidemia. HISTORY: Mr. Street recently underwent cardiac catheterization, which revealed no significant coronary disease. He initially did well and was discharged; however, presented to [facility] with acute groin pain today. He was found to have pseudoaneurysm and retroperitoneal bleed. His hemoglobin is 7.7. PHYSICAL EXAMINATION: GENERAL APPEARANCE: Well-nourished, well-developed, appears stated age. Level of distress, comfortable. PSYCHIATRIC: Mental status, alert, normal affect. Orientation, oriented to time, place and person. EYES: Lids and conjunctiva, noninjected. No discharge, no pallor. ENT: Lips, teeth, gums, normal dentition. Oropharynx, no cyanosis, no pallor. NECK: Carotid arteries, bilateral normal upstroke, no bruits, no thrills. JUGULAR VEINS: No jugular venous pressure or distention. CERVICAL LYMPH NODES: Nontender, nonenlarged. THYROID: Not enlarged. Nontender. No nodules. LUNGS: Respiratory effort, unlabored. CHEST: Normal curvature. No thoracic deformity. No chest wall tenderness. Percussion, resonant. Auscultation, clear. No wheezes, no rales, no rhonchi. CARDIOVASCULAR: Precordial exam, nondisplaced. No heaves or pericardial thrills. Rate and rhythm, regular. Heart sounds, normal S1, normal S2. No S3, no gallop, no rub. Systolic murmur, not heard. Diastolic murmur, not heard. EXTREMITIES: No cyanosis, no edema. Peripheral pulses, full and equal in all extremities, except as noted. No bruits appreciated. ABDOMEN: Soft, nondistended. Normal aorta. No bruit. Nontender. No masses. Liver, nontender, no hepatomegaly. Spleen, nontender, no splenomegaly. MUSCULOSKELETAL: No joint tenderness. No joint swelling. No erythema. NEUROLOGICAL: Normal gait, normal strength, normal tone. SKIN: Warm and dry. OVERALL IMPRESSION: Pseudoaneurysm with retroperitoneal bleed. We will consult Dr. Garcia for surgical repair of the artery. TRANSINT:[id number] Voice Confirmation ID: [id number] DOCUMENT ID: [id number] HISTORY AND PHYSICAL [id number] JUAN STREET JEFFREY MD at 1950 CC: [id number] DICTATION DATE: 12/21/17 1451 OPERATIONS ASSISTANT: 12/21/17 1501 ADM IN [place] [id number] [place] [id number]
--- NOTE | ~2017-12-21 | EC ---
PATIENT:JUAN STREET DATE OF SERVICE: 12/21/17 SEX: M MEDICAL RECORD: [id number] DATE OF : 70 LOCATION:[place] [address] AGE OF PATIENT: 47 ADMISSION DATE: 12/21/17 REFERRING PHYSICIAN: INTERPRETING PHYSICIAN: BECKI VILLAFUERTE MD ECHOCARDIOGRAM REPORT ECHO CHARGES 4 ECHO COMPLETE Date: 12/22/17 CLINICAL DIAGNOSIS: PERICARDIAL EFFUSION ECHOCARDIOGRAPHIC MEASUREMENTS (adult normal given) AC root (d.<3.7cm) 3.3 cm LV Septum d (<1.2 cm> 1.5 cm Valve Excursion 1.2 cm LV Septum (systole) 2.0 cm Left Atria (s.<4.0cm> 4.4 cm LVPW d(<1.2cm) 1.9 cm RV (d.<2.3cm) 2.9 cm LVPW (sytole) 2.0 cm LV diastole(<5.6CM) 4.7 cm MV E-F(>70mm/sec) cm LV systole 3.8 cm LVOT Diameter 2.2 cm MV exc.(>10mm) cm Est.ejection fraction (50-75%) % DOPPLER: LVIT cm/sec A 91 cm/sec E 75 cm/sec LA cm/sec RVSP 23.9 mmHg LVOT 146 cm/sec AOP1/2T m/s Asc. Ao 186 cm/sec RVOT 83 cm/sec RA cm/sec PA 107 cm/sec AV Gradient Peak 13.9 mmHg AV Mean 1.3 mmHg AV Area 2.9 cm MV Gradient Peak 3.3 mmHg MV Mean 2.0 mmHg MV Area cm COMMENTS: Club Lounge Attendant: Frederic [facility] Bowling Ball Molder: 3 Dr. Mckenzie TAPE# PACS Pericardial Effusion Y DATE OF SERVICE: Adequate 2D, color flow, spectral Doppler, and M-mode. LVH is present. LV internal dimension is normal. Wall motion is normal. EF greater than 55%. Aortic valve sclerosis without stenosis by Doppler interrogation. Left atrium is dilated at 4.4 cm. Mitral valve is thickened. Mild MR. Right-sided chamber size is grossly normal. Trace TR. Note is made of small pericardial effusion of no hemodynamic significance. TRANSINT:[id number] Voice Confirmation ID: [id number] DOCUMENT ID: [id number] ECHOCARDIOGRAM REPORT [id number] [address],BECKI Sahu MD at 0843 CC: [id number] DICTATION DATE: 12/23/1758 CUSTOMER RELATIONS ASSISTANT: 12/23/17 1122 DIS IN 12/24/17 [facility] [address] [place] [address]
--- NOTE | ~2017-12-21 | OP ---
PATIENT NAME: JUAN STREET MEDICAL RECORD: [id number] :70 LOCATION:D.I D.CV06 ADMISSION DATE:12/21/17 SURGEON: JUAN GARCIA MD DATE OF OPERATION: 12/21/2017 SURGEON: Juan Garcia MD ANESTHESIA: General endotracheal, Frederic Marshall MD OPERATION PERFORMED: Closure of false aneurysm, right common femoral artery. PREOPERATIVE DIAGNOSIS: False aneurysm, right common femoral artery. POSTOPERATIVE DIAGNOSIS: False aneurysm, right common femoral artery. INDICATIONS FOR OPERATION: False aneurysm, right groin. Retroperitoneal hematoma. FINDINGS AT OPERATION: False aneurysm, right common femoral artery. ESTIMATED BLOOD LOSS: Less than 20 mL. DESCRIPTION OF PROCEDURE: After informed consent, adequate preoperative medication, and evaluation, the patient was brought to the operating room and placed on the table in supine position. After induction of general endotracheal anesthesia and application of appropriate monitoring devices, the abdomen and thighs were prepped and draped in sterile field utilizing Betadine scrub, alcohol, and Betadine solution. A Betadine-impregnated drape was also used. An incision was made above the inguinal ligament. Dissection was carried down to the fascia. The inguinal ligament was retracted superiorly and the false aneurysm was encountered. Digital pressure was held. The artery was dissected proximally and distally, and utilizing Kittner dissector, the artery was controlled. A C1 Prolene suture ligature was then placed through the puncture site and secured. The pressure was released and there was good flow through the artery. Doppler demonstrated good systolic and diastolic flow. The remainder of the hematoma was removed and tissue debridement was performed. Wound was irrigated with copious amounts of antibiotic solution and normal saline. The instrument counts and sponge counts were correct times 2. Wounds were closed in layers utilizing 2-0 Vicryl on deep subcutaneous and 3-0 Vicryl on superficial subcutaneous tissue. Skin was approximated with 5-0 subcuticular Monocryl. Sterile dressings were applied. The patient tolerated the procedure well and transferred to the CV ICU in satisfactory condition. TRANSINT:[id number] Voice Confirmation ID: [id number] DOCUMENT ID: [id number] JUAN GARCIA MD at 1234 CC: [id number] DICTATION DATE: 12/21/171756 MANAGER CLINICAL INFORMATICS: 12/21/17 191 ADM IN [facility] [address] [place] [address]
[~2017-12-21 12:49] MED LIST changes: -APAP325 MG PO; -ULTRAM50 MG PO
[2017-12-21 13:52] LABS: BASOPHILS 0.2 % (0-2); EOSINOPHILS 0 % (0-7); IMMATURE GRANULOCYTES 0.2 % (0-5); LYMPHOCYTES 7.5 % (15-50); MCH 27.6 pg (26.0-34.0); MCHC 32.9 g/dL (31.0-37.0); MCV 83.9 fL (80.0-100.0); MEAN PLATELET VOLUME 9.2 fL (7.4-10.4); MONOCYTES 5.1 % (2-11); RDW 14.8 % (11.5-14.5)
[2017-12-21 14:00] LABS: APTT 27.2 SECONDS (22.8-39.4); INR 1.13 (0.85-1.17); PROTIME 14.1 SECONDS (11.6-15.0)
[2017-12-21 14:00] LABS: HEMATOCRIT 23.4 % (42.0-54.0); HEMOGLOBIN 7.7 g/dL (13.5-17.5); PLATELET COUNT 220 10x3/uL (130-400); RBC 2.79 10x6/uL (4.20-6.10); WBC 9.1 10x3/uL (4.8-10.8)
[2017-12-21 14:17] LABS: ALBUMIN 2.5 g/dL (3.4-5.0); ANION GAP 11.3 mmol/L (8-16); BILIRUBIN - TOTAL 0.26 mg/dL (0.2-1.3); CALCIUM 7.4 mg/dL (8.5-10.1); CARBON DIOXIDE 25.5 mmol/L (21.0-32.0); CREATININE - SERUM 7.6 mg/dL (0.6-1.3); POTASSIUM - SERUM 4.8 mmol/L (3.5-5.1); PROTEIN - SERUM 5.7 g/dL (6.4-8.2)
[2017-12-21] MEDS ORDERED: APAP325 MG PO (18:07)
[2017-12-21] MEDS ORDERED: HUMULIN 70100 UNIT/1 SC (18:08)
[2017-12-22] VITALS (25 sets, daily range): BP systolic 110–171; BP diastolic 65–89; Ht 172.7 cm; Wt 79.3 kg
[2017-12-22 06:11] LABS: MCH 27.9 pg (26.0-34.0); MCHC 32.8 g/dL (31.0-37.0); MEAN PLATELET VOLUME 9.1 fL (7.4-10.4); RBC 2.26 10x6/uL (4.20-6.10); RDW 15.4 % (11.5-14.5); WBC 9.2 10x3/uL (4.8-10.8)
[2017-12-22 06:14] LABS: HEMATOCRIT 19.2 % (42.0-54.0); HEMOGLOBIN 6.3 g/dL (13.5-17.5)
[2017-12-22 06:35] LABS: ALBUMIN 2.2 g/dL (3.4-5.0); ANION GAP 13.6 mmol/L (8-16); BILIRUBIN - TOTAL 0.18 mg/dL (0.2-1.3); CALCIUM 7.3 mg/dL (8.5-10.1); CREATININE - SERUM 8.5 mg/dL (0.6-1.3); POTASSIUM - SERUM 4.6 mmol/L (3.5-5.1)
[2017-12-23] VITALS (22 sets, daily range): BP systolic 108–154; BP diastolic 51–82
[2017-12-23 05:12] LABS: MCH 28.3 pg (26.0-34.0); MCHC 33.8 g/dL (31.0-37.0); MCV 83.7 fL (80.0-100.0); MEAN PLATELET VOLUME 8.5 fL (7.4-10.4); RDW 15.3 % (11.5-14.5)
[2017-12-23 05:14] LABS: HEMATOCRIT 23.1 % (42.0-54.0); HEMOGLOBIN 7.8 g/dL (13.5-17.5); RBC 2.76 10x6/uL (4.20-6.10)
[2017-12-23 05:32] LABS: ALBUMIN 2.3 g/dL (3.4-5.0); BILIRUBIN - TOTAL 0.31 mg/dL (0.2-1.3); CALCIUM 7.2 mg/dL (8.5-10.1); CARBON DIOXIDE 27.8 mmol/L (21.0-32.0); CREATININE - SERUM 7.7 mg/dL (0.6-1.3); PROTEIN - SERUM 5.1 g/dL (6.4-8.2)
[2017-12-23 05:34] LABS: POTASSIUM - SERUM 3.8 mmol/L (3.5-5.1)
[2017-12-24] VITALS (14 sets, daily range): BP systolic 108–151; BP diastolic 48–80
[2017-12-24 06:28] LABS: BASOPHILS 0.4 % (0-2); EOSINOPHILS 2.6 % (0-7); HEMATOCRIT 22.4 % (42.0-54.0); IMMATURE GRANULOCYTES 0.3 % (0-5); LYMPHOCYTES 13.3 % (15-50); MCH 27.9 pg (26.0-34.0); MCV 84.5 fL (80.0-100.0); MEAN PLATELET VOLUME 8.7 fL (7.4-10.4); MONOCYTES 9.8 % (2-11); NEUTROPHILS 73.6 % (40-80); PLATELET COUNT 177 10x3/uL (130-400); RBC 2.65 10x6/uL (4.20-6.10); WBC 7.4 10x3/uL (4.8-10.8)
[2017-12-24 06:42] LABS: HEMOGLOBIN 7.4 g/dL (13.5-17.5)
[2017-12-24 06:56] LABS: ALBUMIN 2.1 g/dL (3.4-5.0); ANION GAP 11.5 mmol/L (8-16); BILIRUBIN - TOTAL 0.24 mg/dL (0.2-1.3); CALCIUM 7.1 mg/dL (8.5-10.1); CARBON DIOXIDE 26.5 mmol/L (21.0-32.0); PROTEIN - SERUM 5.4 g/dL (6.4-8.2)
[2017-12-24 06:58] LABS: CREATININE - SERUM 9.9 mg/dL (0.6-1.3)
[2017-12-24] MEDS ORDERED: ULTRAM50 MG PO (10:41)
== END 2017-12-24 17:21 | DRG 252 ==
LOC: D.ER 12:49 → D.CVICU 14:50
PROVIDERS: Family Medicine; Internal Medicine Cardiovascular Disease; Internal Medicine Nephrology
PROC: 04QK0ZZ Repair Right Femoral Artery, Open Approach (ICD-10-PCS; principal; 2017-12-21 13:00)
DX: I72.4 Aneurysm of artery of lower extremity (principal); N18.6 End stage renal disease; D62 Acute posthemorrhagic anemia; I12.0 Hypertensive chronic kidney disease with stage 5 chronic kidney disease or end stage renal disease; R58 Hemorrhage, not elsewhere classified; J44.9 Chronic obstructive pulmonary disease, unspecified; E11.22 Type 2 diabetes mellitus with diabetic chronic kidney disease; Z99.2 Dependence on renal dialysis; E78.5 Hyperlipidemia, unspecified; R06.01 Orthopnea; F17.200 Nicotine dependence, unspecified, uncomplicated

== ENCOUNTER 2018-06-10 09:43 | Inpatient (IN) | payer MEDICAID ==
[~2018-06-10] VITALS: Ht 172.7 cm; Wt 70.1 kg
[2018-06-10] VITALS (13 sets, daily range): BP systolic 133–174; BP diastolic 81–101; BMI 28.4
--- NOTE | ~2018-06-10 | HEMODYNAMI ---
PATIENT:JUAN STREET MEDICAL RECORD: [id number] : 70 [facility] ADMISSION DATE: 06/10/18 Generatedon:06/14/201818:03 Patient name: JUAN STREET Patient #: [id number] SSN: : 1970 Date of study: 06/14/2018 Page: Of Hemodynamic Procedure Report Patient Data Patient Demographics Procedure consent was obtained First Name: JUAN Gender: Male Last Name: YENIFER : 1970 Patient #: [id number] Age: 48 year(s) Race: Black Additional ID: [id number] Contact details [address]: [address] [place] [address] State: [place] City: [place] Zip code: [address] Past Medical History Allergies Allergen Reaction Date Comments Reported Other allergy 12/20/2017 LISINOPRIL Admission Admission Data Admission Date: 06/10/2018 Admission Time: 11:05 Room #: [facility] Procedure Procedure Types Cath Procedure Peripheral Cath Diagnostic Procedure Fistula Procedure Description Procedure Date Procedure Date: 06/14/2018 Procedure Start Time: 16:50 Procedure Staff Name Function Ishmael Flynn MD Performing Physician Tawnya Hirsch RN Nurse Migdalia Luevano Scrub [facility] RT Monitor Procedure Data Cath Procedure Fluoroscopy Diagnostic fluoroscopy Total fluoroscopy Time: 3.1 time: 3.1 min min Diagnostic fluoroscopy Total fluoroscopy dose: 89 dose: 89 mGy mGy Diagnostic catheters Device Type Used For End Catheter Placement Merit Impress KA 2 5Fr 40CM catheter ([id number]) Procedure Medications Medication Administration Route Dosage Heparin Flush Bag added to field 2 bags (1000units/500ml NS) Lidocaine 1% added to field 20 Heparin Bolus I.V. 3000 units Hemodynamics Rest Heart Rate: 69 (bpm) Snapshots Pre Cath Intra NCS Post Cath Vital Signs Time Heart Resp SPO2 etCO2 NIBP (mmHg) Rhythm Pain Sedation Rate (ipm) (%) (mmHg) Status Level (bpm) 16:47:05 63 13 98 36.8 129/79(110) NSR 0 (11) 9(A) , No pain 16:51:25 71 11 98 30.8 146/87(124) NSR 0 (11) 9(A) , No pain 16:55:55 68 12 98 33.1 143/85(118) NSR 0 (11) 9(A) , No pain 17:00:25 68 17 97 30.8 143/81(105) NSR 0 (11) 9(A) , No pain 17:04:56 65 10 98 22.5 149/78(125) NSR 0 (11) 9(A) , No pain 17:09:28 70 17 98 37.6 146/79(113) NSR 0 (11) 9(A) , No pain 17:13:56 66 30 97 31.6 144/83(118) NSR 0 (11) 9(A) , No pain 17:18:23 67 26 97 36.1 148/88(124) NSR 0 (11) 9(A) , No pain 17:22:53 71 22 96 35.3 149/85(122) NSR 0 (11) 9(A) , No pain 17:27:23 71 16 98 40.6 147/87(120) NSR 0 (11) 9(A) , No pain 17:31:53 74 26 98 36.8 139/85(114) NSR 0 (11) 9(A) , No pain 17:36:18 73 12 98 39.1 145/87(121) NSR 0 (11) 9(A) , No pain 17:40:46 74 15 98 29.3 142/83(98) NSR 0 (11) 9(A) , No pain 17:45:12 72 16 97 39.1 145/89(104) NSR 0 (11) 9(A) , No pain 17:49:36 67 15 98 43.6 126/83(122) NSR 0 (11) 9(A) , No pain 17:53:54 71 14 98 43.6 136/85(125) NSR 0 (11) 9(A) , No pain 17:58:19 70 12 95 34.6 142/82(101) NSR 0 (11) 9(A) , No pain Medications Time Medication Route Dose Verified Delivered Reason Notes Effectiveness by by 16:41:22 Heparin Flush added 2 bags Ishmael Quiñones used for Bag to Rina Flynn MD procedure (1000units/500ml field NS) 16:41:34 Lidocaine 1% added 20ml vial Ishmael Quiñones for local to Rina Flynn MD anesthetic field 17:30:45 Heparin Bolus I.V. 3000units Ishmael Bowling Per Torrey Flynn RN physician MD Procedure Log Time Note 16:26:33 Tawnya Hirsch RN sent for patient. Start room use. 16:26:44 Time tracking: Regular hours (M-F 7:00 - 5:00) 16:26:48 Plan of Care:Hemodynamics will remain stable., Cardiac rhythm will remain stable., Comfort level will be maintained., Respiratory function will remain adequate., Patient/ family verbilizes understanding of procedure., Procedure tolerated without complication., Recovers from procedure without complications.. 16:27:02 Patient received from ICU to IR Alert and oriented. Tansferred to table in Supine position. 16:27:03 Correct patient and procedure confirmed by team. 16:27:08 Signed procedure consent form obtained from patient. 16:27:09 ECG and BP/O2 sat monitors applied to patient. 16:27:14 Full Disclosure recording started 16:27:15 - 16:27:19 H&P Date Dictated: 06/14/2018 H&P Addendum completed by physician on day of procedure. (MUST COMPLETE FOR ALL OUTPATIENTS). 16:27:23 Family unavailable. 16:27:25 Patient NPO since Midnight. 16:28:29 Use device set IR Diagnostic 16:28:30 Bag Decanter () opened to sterile field. 16:28:30 Sterile Angiographic Pack opened to sterile field. 16:28:31 Tegaderm 4 x 4 (1626W) opened to sterile field. 16:30:01 PT UNABLE TO ANSWER QUESTIONS 16:33:23 IV patent on arrival in right hand with 0.9% NaCl at KVO. 16:33:25 Alarms reviewed by R. N. 16:33:26 Sharps counted by scrub and verified by R.N. 16:33:33 Left Arm area was prepped with chlora-prep and draped in sterile fashio n 16:41:22 Heparin Flush Bag (1000units/500ml NS) 2 bags added to field was administered by Ishmael Flynn MD; used for procedure; 16:41:34 Lidocaine 1% 20ml vial added to field was administered by Ishmael Flynn MD; for local anesthetic; 16:45:41 Vital chart was started 16:45:43 Baseline sample Acquired. 16:50:32 Physician responded to page. 16:50:33 Physician arrived 16:50:34 --------ALL STOP TIME OUT------ 16:50:35 Final Timeout: patient, procedure, and site verified with staff and physician. All members of the team are in agreement. 16:50:38 Left Arm site verified by team. 16:50:42 Fire Safety Assessment: A--An alcohol-based skin anteseptic being used preoperatively. 16:50:45 Fire Safety Assessment: C--Open oxygen or nitrous oxide is being used. 16:50:46 Local anesthetic to left arm with Lidocaine 1% by Ishmael Flynn MD.INITIAL ACCESS ONLY 16:50:49 Sedation plan: IV Moderate Sedation Medication:Versed, Fentanyl 17:09:30 DOC .035 wire ([id number]) opened to sterile field. 17:09:30 SHEATH 5FR [place] (HXZ054) opened to sterile field. 17:09:30 Micropuncture VSI 4FR kit opened to sterile field. 17:09:31 Micropuncture VSI 4FR kit opened to sterile field. 17:14:32 VICTOR 80cm wire ([id number]) opened to sterile field. 17:14:57 SHEATH 6FR [place] (TSC527) opened to sterile field. 17:20:25 St Otis 6FR 5cm sheath opened to sterile field. 17:23:22 A Merit Impress KA 2 5Fr 40CM catheter ([id number]) was advanced over the wire and used for . 17:28:23 INFLATOR BasixTOUCH (OA7176) opened to sterile field. 17:28:24 St Otis 6FR 5cm sheath opened to sterile field. 17:30:45 Heparin Bolus 3000units I.V. was administered by Tawnya Hirsch RN; Per physician; 17:32:58 Inflate balloon Inflation number: 1 A Evercross 6 x 6 x 135 Balloon ([id number]) was prepped and advanced across the Undefined1, then inflated to 14 FRANCISCO for 0:12 (min:sec). 17:36:45 Inflate balloon Inflation number: 2 A Evercross 8 x 4 x 135 Balloon ([id number]) was prepped and advanced across the Undefined1, then inflated to 14 FRANCISCO for 0:38 (min:sec). 17:43:44 Procedure ended.(Physican Out) 17:44:48 Fluoroscopy time 03.10 minutes. 17:44:55 Fluoroscopy dose: 89 mGy 17:44:55 Flurop Dose total: 89 17:44:57 Sharps counted by scrub and verified by R.N. 17:44:58 Insertion/operative site no bleeding no hematoma. 17:45:12 Post-op/insertion site Left Fistula dressed using a 4 x 4 and Tegaderm. 17:45:32 Post left arm:stable 17:45:55 Patient needs reinforcement of post procedure teaching. 18:02:22 Report given to ICU. 18:02:26 Patient transfered to ICU with Bed. 18:03:16 Vital chart was stopped Intervention Summary Intervention Notes Time ActionType Lesion and Equipment Used Action# Pressure Duration Attributes 17:32:58 Inflate Undefined1 Evercross 6 x 6 1 14 00:12 balloon x 135 Balloon ([id number]) 17:36:45 Inflate Undefined1 Evercross 8 x 4 2 14 00:38 balloon x 135 Balloon ([id number]) Device Usage Item Name Manufacture Quantity Catalog Number Hospital Part Current M inimal Lot# / Charge Number Stock Stock Serial# Code Bag Decanter Microtek 1 [id number] 73227 [id number] 5 () Medical Inc. Sterile Cardinal 1 [id number] 141185 605239 5 Angiographic Health Pack Tegaderm 4 x 4 3M 1 1626W 702665 215343 952818 5 (1626W) DOC .035 wire Cook Medical 1 [id number] 071476 883627 5 ([id number]) SHEATH 5FR Terumo 1 [id number] 731321 465545 235721 5 [place] (NKI384) Micropuncture VSI VASCULAR 2 7266V 369639 823051 5 VSI 4FR kit SOLUTIONS VICTOR 80cm wire [employer] 1 [id number] 602222 409761 5 [id number] (V49586) SHEATH 6FR Terumo 1 FVK671 255173 698028 639310 4 0 [place] (IKE441) St Otis 6FR 5cm St Otis 2 716757 302671 519033 5 [id number] sheath [id number] Merit Impress Merit 1 [id number] 334481 308647 5 KA 2 5Fr 40CM Medical catheter ([id number]) INFLATOR Merit 1 ZE9164 005878 466660 484982 5 BasixD[employer] Medical (EP2022) Evercross 6 x 6 Medtronic 1 [id number] 580649 842486 5 x 135 Balloon ([id number]) Evercross 8 x 4 Medtronic 1 [id number] 440981 054117 214570 5 x 135 Balloon ([id number]) Signature Audit [place] Stage Time Signature Unsigned Intra-Procedure 06/14/2018 Peter 6:03:11 PM Leeann RT (R) (CV) Signatures Monitor : Peter Signature : Leeann RT Date : Time : [place] [id number] [place] [address]
[~2018-06-10 09:43] MED LIST changes: +APAP325 MG PO; +ULTRAM50 MG PO
[2018-06-10 10:11] LABS: HEMATOCRIT 27.2 % (42.0-54.0); MCH 28.1 pg (26.0-34.0); MCHC 33.1 g/dL (31.0-37.0); MEAN PLATELET VOLUME 9.4 fL (7.4-10.4); RDW 16.4 % (11.5-14.5); WBC 2.7 10x3/uL (4.8-10.8)
[2018-06-10 10:12] LABS: PLATELET COUNT 93 10x3/uL (130-400)
[2018-06-10 10:28] LABS: ALBUMIN 2.9 g/dL (3.4-5.0); ANION GAP 22.1 mmol/L (8-16); BILIRUBIN - TOTAL 0.44 mg/dL (0.2-1.3); CALCIUM 9.8 mg/dL (8.5-10.1); CARBON DIOXIDE 18.9 mmol/L (21.0-32.0); CREATININE - SERUM 16.5 mg/dL (0.6-1.3); MAGNESIUM - SERUM 3.4 mg/dL (1.8-2.4); PROTEIN - SERUM 5.8 g/dL (6.4-8.2)
[2018-06-10 10:32] LABS: ACANTHOCYTES OCC; LYMPHOCYTES 6 % (15-50); NEUTROPHILS 93 % (40-80)
[2018-06-10 10:33] LABS: ANISOCYTOSIS OCC; CRENATED CELLS OCC; PLATELET ESTIMATE DECREASED; ROULEAUX OCC
--- NOTE | 2018-06-10 10:40 | NUR ---
CRITICAL LAB CALLED BY SHARON MAKER UP FOLDING. POTASSIUM 8.0 NOTIFIED EDM AT THIS TIME. ELIS IVORY MADE AWARE
[2018-06-10] MEDS ORDERED: PHOSLO667 MG PO (13:22)
[2018-06-10] MEDS ORDERED: PROVENTIL/2.5 MG/3 M INH (13:22)
[2018-06-10] MEDS ORDERED: CATAPRES0.3 MG PO (13:23)
[2018-06-10] MEDS ORDERED: ALPHAGAN P15 ML EACH EYE (13:26)
[2018-06-10] MEDS ORDERED: NORVASC5 MG PO (13:29)
--- NOTE | 2018-06-10 13:45 | NUR ---
1150 PT ARRIVED TO ROOM, EXTERNALLY PACED 70BPM, ON NON REBREATHER,PIV TO L AND R HAND, BICARB AND CALCIUM INITATED TO R HAND, R SUBCLAVIAN HEMESPLIT DRESSING CDI, LFA FISTULA WITH THRILL AND BRUIT, HANDCUFFED TO BED PER GUARD ESCORTS, PT PULLING ON PACER PADS, WRIST RESTRAINT ORDER RECIEVED AND APPLIED, ORDERS FOR NGT PER DR SPANGLER, DR BARNES AND RENAL CONSULTS CALLED, TEMP 84, ALL MDS AWARE, NGT ATTEMPTED TO BE PLACED TO EACH KLEIN WITHOUT SUCCESS, PT SHAKING HEAD, NOSE BLEEDING AND DR SPANGLER AWARE SPOKE WITH [facility] AND UPDATED MED LIST 1145 SPO2 IN 80S, NOTIFIED DR SPANGLER WITH ORDERS FOR STAT ABG, RT NOTIFIED, AWAITING INSULIN FROM PHARMACY. DIALYSIS NURSE AT BEDSIDE, SPOKE WITH FARNAZ ROSADO AND UPDATED ON PT, ALARMS SET AND PT WITHIN EYESIGHT, GUARDSX2 AT BEDSIDE
--- NOTE | 2018-06-10 14:16 | NUR ---
ABG RESULTS CALLED TO DR SPANGLER WHO STATED "OK ILL LOOK AT IT"
--- NOTE | 2018-06-10 14:49 | NUR ---
PT DOES NOT FOLLOW COMMANDS, CONTINUALLY SPEAKING GARBLED SPEECH AND ATTEMPTING TO PULL MONITORING EQUIPMENT DESPITE HANDCUFFS AND RESTRAINTS, HR APPEARS ELEVATED ON MONITOR BUT IS PACED APPROPRIATELY WHEN REVIEWED ON STRIP, FARNAZ ROSADO IN ROOM AND PACE RATE CHANGED TO 60BPM, BIPAP ORDERED AND RT AWARE, NOSEBLEED APPEARS TO BE SLOWING DOWN, DIALYSIS NURSE AND GUARDS AT BEDSIDE, WILL CONTINUE TO MONITOR
--- NOTE | 2018-06-10 15:51 | NUR ---
SPOKE WITH CHECK PROCESSOR ABOUT PTS REFUSING DIALYSIS IN [facility] AND IF, WHEN MENTAL STATUS CLEARS, HE IS ABLE TO MAKE DECISIONS ABOUT CARE, TOLD TO CALL [facility], MESSAGE LEFT TO RETURN CALL
--- NOTE | 2018-06-10 16:39 | NUR ---
TEMP UP TO 97.6
--- NOTE | 2018-06-10 16:46 | NUR ---
PT SOMEWHAT ABLE TO FOLLOW COMMANDS, NO LONGER PULLING AT LINES, RESTRAINTS REMOVED
--- NOTE | 2018-06-10 16:57 | NUR ---
GIUSEPPE DRESSING CHANGED BY DIALYSIS NURSE
--- NOTE | 2018-06-10 17:51 | NUR ---
ORAL CARE DONE, GAUZE TO NARES CHANGED WITH SLIGHT BLEED CONTINUING FROM R NARE, LINEN CHANGE AND BATH DONE, GUARD AT BEDSIDE, WILL CONTINUE TO MONITOR
--- NOTE | 2018-06-10 18:32 | NUR ---
DESPITE GUARDS HANDCUFFS, PT PULLED OFF PACER PAD, PAD REPLACED, CAPTURE OBSERVED, WRIST RESTRAINTS REORDERED AND REAPPLIED
--- NOTE | 2018-06-10 19:08 | NUR ---
REPORT RECEIVED, SHIFT ASSESSMENT COMPLETED PER FLOW SHEET. PATIENT COUNFUSED, AGITATED, RESTLESS. BILATERAL WRIST RESTRAINTS IN PLACE. ATTEMPTED TO REORIENT PATIENT AND KEEP HIM CALM BUT UNABLE TO DO SO. PATIENT KEEPS KICKING AND TURNING, ATTEMPTING TO REMOVE 100% NON REBREATHER MASK, INFORMED HIM OF THE IMPORTANCE OF ALL MONITORING AND ICU EQUIPMENT BUT PATIENT KEEPS PULLING AT LINES AND TUBING. AFTER MULTIPLE ATTEMPS ABLE TO OBTAIN A TEMPERATURE READING OF 96.6, BEAR HUGGER TURNED ON TO MEDIUM AND BLANKETS PLACED, WILL REASSESS. NOSEBLEED NOTED FROM PREVIOUS NGT PLACEMENT ATTEMPTS, NOSE CLEANED AND ASSESSED, CLOTS NOTED, GAUZE IN PLACE. RT HAND PIV INFUSING BICARB DRIP AT 100 MLS/HR, NO SIGNS OF INFECTION OR INFILTRATION. GUARD AT BEDSIDE. SEE FLOW SHEET FOR COMPLETE ASSESSMENT. WILL CONTINUE TO MONITOR.
[2018-06-10 19:57] LABS: ANION GAP 18.6 mmol/L (8-16); CALCIUM 8.6 mg/dL (8.5-10.1); CARBON DIOXIDE 22.2 mmol/L (21.0-32.0)
[2018-06-10 20:03] LABS: CREATININE - SERUM 11.1 mg/dL (0.6-1.3); POTASSIUM - SERUM 5.8 mmol/L (3.5-5.1)
--- NOTE | 2018-06-10 20:23 | NUR ---
LAB RESULTS AVAILABLE AND REVIEWED. GLUCOSE LEVEL CRITICALLY LOW, PATIENT ASSESSED AND GLUCOSE LEVEL TREATED PER HYPOGLYCEMIC PROTOCOL. BP ELEVATED. PATIENT CONTINUES TO KICK AND PULL AT MEDICALLY NECESSARY EQUIPMENT. MANAGING TO KICK AND REMOVE BEAR HUGGER, TEMPERATURE REASSESSED AND IS NOW 93.3, BEAR HUGGER TURNED ON TO HIGH. WILL CALL DR. SPANGLER.
--- NOTE | 2018-06-10 20:26 | NUR ---
CALLED AND SPOKE TO DR. SPANGLER, GAVE HIM AN UPDATE ON PATIENT STATUS AND REVIEWED LABS AND VITAL SIGNS WITH HIM. NEW ORDERS RECEIVED. PER HIS ORDERS HE DOES NOT WANT TO TREAT HYPERTENSION, KEEP BRIAN MARINELLIER ON AT HIGH. SEE ORDERS FOR DETAILS.
--- NOTE | 2018-06-10 20:42 | NUR ---
SPOKE TO PHARMACY PERSONNEL ABOUT OBTAINING D10 DRIP, WILL WAIT FOR AVAILABILITY TO START INFUSION.
--- NOTE | 2018-06-10 21:12 | NUR ---
PATIENT REMAINS AGITATED DESPITE MULTIPLE ATTEMPTS TO KEEP HIM CALM. GEODON ADMINISTERED WITH AVEL Chaudhry RN. WILL CONTINUE TO MONITOR.
--- NOTE | 2018-06-10 23:01 | NUR ---
REASSESSMENT COMPLETED PER FLOW SHEET, SEE FOR DETAILS. TEMPERATURE NOW 98.2. RADIAL PULSES ASSESSED X2 NURSES BILATERALLY. HR IN THE 80'S. EXTERNAL PACEMAKER TURNED OFF, NOTED HR 80-90 SINUS RHYTHM ON MONITOR. ORAL CARE PROVIDED. REMAINS AGIATED, UNALBLE TO KEEP CALM, KICKING, PULLING AT ICU MONITORING EQUIPMENT. WILL CALL DR. SPANGLER.
--- NOTE | 2018-06-10 23:11 | NUR ---
CALLED AND SPOKE TO DR. PUGA, UPDATE GIVEN ON PATIENT STATUS. NEW ORDERS RECEIVED. SEE ORDERS FOR DETAILS.
[2018-06-11] VITALS (24 sets, daily range): BP systolic 140–190; BP diastolic 73–106; Ht 172.7 cm; Wt 70.1 kg
--- NOTE | 2018-06-11 00:53 | NUR ---
FSBS NOW 81. WILL CONTINUE TO MONITOR.
--- NOTE | 2018-06-11 01:00 | NUR ---
APPEARS CALM, WILL CONTINUE TO MONITOR.
--- NOTE | 2018-06-11 03:18 | NUR ---
REASSESSMENT COMPLETED PER FLOW SHEET, SEE FOR DETAILS. WILL CONTINUE TO MONITOR.
--- NOTE | 2018-06-11 05:00 | NUR ---
AGITATED, BP ELEVATED, UNABLE TO KEEP CALM. UNABLE TO REASSESS BP DUE TO PATIENT NOT ABLE TO STAY STILL. COMPLETE BED BATH GIVEN WITH SOAP AND WATER. COMPLETE BED LINEN CHANGE PROVIDED. RT NARE STILL BLEEDING, GAUZE CHANGED. ORAL CARE PROVIDED. WILL CONTINUE TO MONITOR.
[2018-06-11 05:05] LABS: BASOPHILS 0.1 % (0-2); EOSINOPHILS 0 % (0-7); HEMATOCRIT 27.7 % (42.0-54.0); HEMOGLOBIN 9.1 g/dL (13.5-17.5); IMMATURE GRANULOCYTES 0.2 % (0-5); LYMPHOCYTES 8.3 % (15-50); MCH 27.7 pg (26.0-34.0); MCHC 32.9 g/dL (31.0-37.0); MCV 84.2 fL (80.0-100.0); MEAN PLATELET VOLUME 9.9 fL (7.4-10.4); MONOCYTES 5.2 % (2-11); NEUTROPHILS 86.2 % (40-80); RBC 3.29 10x6/uL (4.20-6.10); RDW 16.5 % (11.5-14.5)
[2018-06-11 05:06] LABS: PLATELET COUNT 168 10x3/uL (130-400); WBC 8.8 10x3/uL (4.8-10.8)
[2018-06-11 05:52] LABS: ANION GAP 18.3 mmol/L (8-16); CALCIUM 7.9 mg/dL (8.5-10.1); CARBON DIOXIDE 24.2 mmol/L (21.0-32.0); CREATININE - SERUM 10.9 mg/dL (0.6-1.3); VANCOMYCIN - RANDOM 12.3 ug/mL (10.0-20.0)
[2018-06-11 06:15] LABS: POTASSIUM - SERUM 6.5 mmol/L (3.5-5.1)
--- NOTE | 2018-06-11 07:28 | NUR ---
PT RECIEVED ALERT, MOANING/GARBLED SPEECH, ANSWERS NAME BUT NOT ANY OTHER QUESTIONS, ABLE TO FOLLOW COMMANDS AND DO HAND SITE ENGINEER AND MOVE EXTREMETIES ON COMMAND, SIMPLE MASK O2 5L, R NARE NOSEBLEED WITH GAUZE IN PLACE, R SUBCLAVIAN HEMESPLIT DRESSING CHANGED YESTERDAY, CDI, R WRIST PIV WITH BICARB AND D10 INFUSING, BILAT WRIST RESTRAINTS PT CONTINUALLY ATTEMPTING TO PULL LINES, L ARM FISTULA THRILL AND BRUIT PRESENT, L LEG WITH HANDCUFF IN PLACE AND GUARD AT BEDSIDE, HR NSR 80S, REPOSITIONED BUT PT ABLE TO REPOSITION SELF BACK TO PREVIOUS POSITION, ALARMS SET ON MONITORING EQUIPMENT, WILL CONTINUE TO MONITOR
[2018-06-11 10:22] LABS: HEPATITIS C ANTIBODY <0.1 S/CO RAT (0.0-0.9)
--- NOTE | 2018-06-11 10:48 | NUR ---
DC INSTRUCTIONS REVIEWED WITH PT AND FAMILY MEMBER. PRESCRIPTIONS FOR PLAVIX, PRAVASTATIN, AND METOPROLOL SENT WITH PT. ASSISTED PT OUT TO VEHICLE. NO QUESTIONS OR CONCERNS.
--- NOTE | 2018-06-11 10:59 | NUR ---
DR SPANGLER IN UNIT, UPDATED ON PTS CONTINUED NOSE BLEED, MEDICATIONS, ABILITY TO FOLLOW COMMANDS BUT HAS GARBLED SPEECH, ORDERED TO HAVE HEAD CT WITH ABD CT WHEN AVAILABLE, DR SPANGLER RESTARTED HOME MEDS BUT IS AWARE PT IS UNABLE TO SAFELY SWALLOW AT THIS TIME AND WILL CONTINUE HOLDING UNTIL ABLE
[2018-06-11 11:10] LABS: INR 1.28 (0.85-1.17); PROTIME 15.5 SECONDS (11.6-15.0)
[2018-06-11 11:12] LABS: D-DIMER-QUANTITATIVE 1.13 ug/mLFEU (0.20-0.54)
--- NOTE | 2018-06-11 11:19 | EC ---
PATIENT:JUAN STREET DATE OF SERVICE: 06/10/18 SEX: M MEDICAL RECORD: [id number] DATE OF : 70 LOCATION:[place] [address] AGE OF PATIENT: 48 ADMISSION DATE: 06/10/18 REFERRING PHYSICIAN: INTERPRETING PHYSICIAN: LALA CRISTINA MD ECHOCARDIOGRAM REPORT ECHO CHARGES 4 ECHO COMPLETE Date: 06/10/18 CLINICAL DIAGNOSIS: BRADYCARDIA, CHF ECHOCARDIOGRAPHIC MEASUREMENTS (adult normal given) AC root (d.<3.7cm) 3.4 cm LV Septum d (<1.2 cm> 1.7 cm Valve Excursion 2.0 cm LV Septum (systole) 2.3 cm Left Atria (s.<4.0cm> 5.1 cm LVPW d(<1.2cm) 1.5 cm RV (d.<2.3cm) 2.6 cm LVPW (sytole) 1.8 cm LV diastole(<5.6CM) 4.9 cm MV E-F(>70mm/sec) cm LV systole 1.9 cm LVOT Diameter 1.8 cm MV exc.(>10mm) cm Est.ejection fraction (50-75%) % DOPPLER: LVIT cm/sec A 96 cm/sec E 62 cm/sec LA cm/sec RVSP 42.2 mmHg LVOT 120 cm/sec AOP1/2T m/s Asc. Ao 148 cm/sec RVOT 60 cm/sec RA cm/sec PA 69 cm/sec AV Gradient Peak 8.8 mmHg AV Mean 4.2 mmHg AV Area 1.9 cm MV Gradient Peak 5.5 mmHg MV Mean 2.9 mmHg MV Area cm COMMENTS: Marine Safety Officer: [facility] Patternmaker Bench: 1 Dr. Cristina TAPE# PACS Pericardial Effusion Y DATE OF SERVICE: 06/10/2018 PROCEDURE: Echocardiogram. FINDINGS: 1. Left ventricular chamber size is within normal limits. Left ventricular systolic function is normal. Overall ejection fraction estimated at 50%. 2. Left atrium is enlarged at 5.1 cm. Right atrium and right ventricle chamber sizes are as well mildly dilated. 3. Valvular structures have normal structure and motion. ECHOCARDIOGRAM REPORT [id number] [address] 4. Doppler interrogation reveals mild mitral regurgitation, mild tricuspid regurgitation, no other valvular insufficiency or stenosis. 5. A large pericardial effusion is present. It is causing right atrial collapse. OVERALL IMPRESSION: Large pericardial effusion with the beginnings of tamponade physiology. TRANSINT:[id number] Voice Confirmation ID: [id number] DOCUMENT ID: [id number] LALA CRISTINA MD at 1119 CC: [id number] DICTATION DATE: 06/10/18 1542 DIRECTOR TELEVISION NEWS: 06/10/18 1809 ADM IN [facility] [address] [place] [address]
--- NOTE | 2018-06-11 13:02 | NUR ---
ELEVATED D DIMER CALLED TO DR SPANGLER, ORDERS FOR VQ SCAN, (AWARE THAT PT UNABLE TO FOLLOW DIRECTIONS) AND BILAT LOWER DOPPLER
--- NOTE | 2018-06-11 13:15 | NUR ---
WHILE PERFORMING ORAL CARE PT BEGAN GAGGING, COUGHED UP A MODERATE AMOUNT OF CONGEALED BLOOD THEN BEGAN TO VOMIT DARK COFFEE GROUNDS, APPEARS TO BE OLD BLOOD, DR SPANGLER CALLED WITH ORDERS FOR NASAL PACKING WITH AFRIN AND CONSULT ENT
--- NOTE | 2018-06-11 13:19 | NUR ---
NO ENT SUBSTATION OPERATOR TRANSFORMING UNTIL NEXT MONTH, DR SPANGLER AWARE, ORDERS FOR TAMPONS SOAKED IN AFRIN
--- NOTE | 2018-06-11 13:29 | NUR ---
SPOKE WITH SPRAYER MACHINE, JAMEE IN AFRIN NOT CONSIDERED A NURSIN INTERVENTION, DR SPANGLER NOTIFIED
--- NOTE | 2018-06-11 15:30 | NUR ---
PT RECEIVING DIALYSIS. PT RESTING. GUARD BEDSIDE. TEMP 96.8 AXILLARY. GUARD BEDSIDE. WILL CONTINUE TO MONITOR.
--- NOTE | 2018-06-11 17:36 | NUR ---
PT RECEIVED BED BATH. PT HAD INCONTINENT EPISODE. CEFEPIME HUNG. RESTRAINTS IN PLACE. NO NEEDS AT THIS TIME.
--- NOTE | 2018-06-11 19:00 | NUR ---
TO NM VIA BED FOR VQ SCAN.
--- NOTE | 2018-06-11 19:40 | NUR ---
PT BACK TO ROOM. R NARE WITH NASAL TAMPON NOTED, DR. COMER INSERTED WHILE PT WAS IN NM. NO SIGN OF DISTRESS. JESSICA AT BS. L ANKLE IN SHACKLE. B/L SOFT WRIST RESTRAINTS ON PER MD ORDER FOR PT PULLING AT LINES/TUBING. ALARMS ON.
--- NOTE | 2018-06-11 21:10 | NUR ---
DR. SPANGLER UPATED ON PT STATUS, ALERT AND ANSWERING QUESTIONS APPROP. SBP 190. NEW ORDERS REC'D. OK'D BS SWALLOW EVAL AND ADVANCING DIET IF TOLERATED. PT IS NOT PULLING AT LINES. GUARD AT BS AGREES IT IS OK TO D/C SOFT WRIST RESTRAINTS..
--- NOTE | 2018-06-11 21:45 | NUR ---
PT UP IN BED, EATING SANDWICH. NO DIFFICULTY SWALLOWING NOTED.
--- NOTE | 2018-06-11 22:44 | NUR ---
UP TO BSC, ASSIST X 1 - VOIDED 175ML CLEAR, DARK YELLOW URINE, NO BM.. BACK TO BED.
--- NOTE | 2018-06-11 23:21 | NUR ---
PT YELLING OUT, AGITATED, UNABLE TO CALM. PRN GEODON GIVEN - SEE EMAR.
[2018-06-12] VITALS (22 sets, daily range): BP systolic 119–198; BP diastolic 64–102
--- NOTE | 2018-06-12 | NUR ---
MY RESTING MORE QUIETLY, STILL OCC GROANING NOTED, NO OBVIOUS DISTRESS.
--- NOTE | 2018-06-12 01:25 | NUR ---
RESTING WITH EYES CLOSED, NO SIGN OF DISTRESS.
--- NOTE | 2018-06-12 02:30 | NUR ---
PT PULLED OUT NASAL PACKING - NO SIGN OF BLEEDING. REPOSITIONED UP IN BED, MORE CONFUSION NOTED AT THIS TIME. REORIENTED BY NURSE.
--- NOTE | 2018-06-12 03:30 | NUR ---
REASSESSMENT PER FLOWSHEET. NO ACUTE CHANGES. CONFUSED, ATTEMPT TO REORIENT TO DATE/TIME/SITUATION. NO SIGN OF DISTRESS. ALARMS ON.
[2018-06-12 05:18] LABS: BASOPHILS 0.3 % (0-2); EOSINOPHILS 0.4 % (0-7); HEMATOCRIT 26.6 % (42.0-54.0); HEMOGLOBIN 8.7 g/dL (13.5-17.5); IMMATURE GRANULOCYTES 0.1 % (0-5); LYMPHOCYTES 4.8 % (15-50); MCH 27.7 pg (26.0-34.0); MCHC 32.7 g/dL (31.0-37.0); MCV 84.7 fL (80.0-100.0); MONOCYTES 10.2 % (2-11); NEUTROPHILS 84.2 % (40-80); PLATELET COUNT 158 10x3/uL (130-400); RBC 3.14 10x6/uL (4.20-6.10); RDW 16.5 % (11.5-14.5); WBC 7.4 10x3/uL (4.8-10.8)
[2018-06-12 05:58] LABS: ALBUMIN 2.4 g/dL (3.4-5.0); ANION GAP 17.3 mmol/L (8-16); BILIRUBIN - TOTAL 0.65 mg/dL (0.2-1.3); CALCIUM 7.7 mg/dL (8.5-10.1); CARBON DIOXIDE 23.4 mmol/L (21.0-32.0); CREATININE - SERUM 9.1 mg/dL (0.6-1.3); POTASSIUM - SERUM 5.7 mmol/L (3.5-5.1); VANCOMYCIN - RANDOM 17.7 ug/mL (10.0-20.0)
--- NOTE | 2018-06-12 06:15 | NUR ---
DR. SPANGLER HERE TO SEE PT. NOTIFIED OF SBP 190-200 THIS AM. NEW ORDERS REC'D.
--- NOTE | 2018-06-12 07:15 | NUR ---
REPORT RECEIVED. PT RESTING QUIETLY WITH EYES CLOSED. WEARING O2 AT 4L VIA NC. GUARD AT BEDSIDE. PT ASSESSED. IV IN RIGHT HAND. D10 D/C. LEFT ARM RESERVE. DAILY DIALYSIS. HEMESPLIT IN RIGHT SUBCLAVIAN. GUARD AT BEDSIDE. BED IN LOWEST POSITION. SIDE RAILS UP X2. CALL LIGHT IN REACH.
--- NOTE | 2018-06-12 07:44 | NUR ---
SPOKE WITH DR SPANGLER AND NOTIFIED OF GRAM POS COCCI IN CLUSTERS PER MICRO, NO NEW ORDERS
--- NOTE | 2018-06-12 09:17 | NUR ---
MEDICATIONS GIVEN WITH NO DIFFICULTY. PT EATING BREAKFAST WITH NO ISSUES. ALERT AND ABLE TO FOLLOW COMMANDS. GUARD AT BEDSIDE. NO NEEDS AT THIS TIME.
--- NOTE | 2018-06-12 09:54 | NUR ---
REPORT CALLED TO LUIZA AND PT TO TRANSFER TO ROOM 2313, ALL MDS AWARE
--- NOTE | 2018-06-12 10:36 | NUR ---
REC'D VIA BED FROM [facility] NURSELUCIANO, CONNECTED TO MONITORS, VSS, DENIED, ASSESSMENT COMPLETED, SELF REPOSITIONS, NO NEEDS AT THIS TIME, GUARD AT BEDSIDE
--- NOTE | 2018-06-12 15:00 | NUR ---
RESTING WITH NO SIGN OF DISTRESS, HR 140'S, HD STOPPED, 2L OFF
--- NOTE | 2018-06-12 15:29 | EC ---
PATIENT:JUAN STRE[address] DATE OF SERVICE: 06/10/18 SEX: M MEDICAL RECORD: [id number] DATE OF : 70 LOCATION:[facility] D231 AGE OF PATIENT: 48 ADMISSION DATE: 06/10/18 REFERRING PHYSICIAN: INTERPRETING PHYSICIAN: LALA CRISTINA MD ECHOCARDIOGRAM REPORT ECHO CHARGES 5 ECHO LIMITED Date: 06/12/18 CLINICAL DIAGNOSIS: PERICARDIAL EFFUSION ECHOCARDIOGRAPHIC MEASUREMENTS (adult normal given) AC root (d.<3.7cm) 0 cm LV Septum d (<1.2 cm> 0 cm Valve Excursion 0 cm LV Septum (systole) 0 cm Left Atria (s.<4.0cm> 0 cm LVPW d(<1.2cm) 0 cm RV (d.<2.3cm) 0 cm LVPW (sytole) 0 cm LV diastole(<5.6CM) 0 cm MV E-F(>70mm/sec) 0 cm LV systole 0 cm LVOT Diameter 0 cm MV exc.(>10mm) 0 cm Est.ejection fraction (50-75%) % DOPPLER: LVIT 0 cm/sec A 0 cm/sec E 0 cm/sec LA 0 cm/sec RVSP 0 mmHg LVOT 0 cm/sec AOP1/2T 0 m/s Asc. Ao 0 cm/sec RVOT 0 cm/sec RA 0 cm/sec PA 0 cm/sec AV Gradient Peak 0 mmHg AV Mean 0 mmHg AV Area 0 cm MV Gradient Peak 0 mmHg MV Mean 0 mmHg MV Area 0 cm COMMENTS: LIMITED STUDY (2-D ONLY) Showroom Sales Consultant: Obey PEÑA Inclusion Specialist: 1 Dr. Cristina TAPE# PACS Pericardial Effusion Y DATE OF SERVICE: PROCEDURE: Limited echocardiogram for pericardial effusion. FINDINGS: Pericardial effusion is present. It is large, unchanged from previous echocardiogram. There does appear to be right atrial collapse, but no right ventricular collapse. TRANSINT:[id number] Voice Confirmation ID: [id number] DOCUMENT ID: [id number] ECHOCARDIOGRAM REPORT [id number] [address] JEFFREY MD at 1529 CC: [id number] DICTATION DATE: 06/12/18 1156 WELFARE ADMINISTRATOR: 06/12/18 1218 ADM IN [address] [place] [address]
--- NOTE | 2018-06-12 17:00 | NUR ---
DINNER TRAY TO ROOM, HELPED WITH SET UP, INDEPENDENT WITH EATING
--- NOTE | 2018-06-12 18:05 | NUR ---
CALLED TO ROOM, BED HALL PLACED, SMALL SOFT STOOL TO HALL, SKINCARE, BATH AND LINEN CHANGE COMPLETED, VSS, CALL LIGHT IN REACH. NO NEEDS AT THIS TIME
--- NOTE | 2018-06-12 19:11 | NUR ---
REPORT RECEIVED, CARE ASSUMED. INITIAL ASSESSMENT COMPLETED, SEE FLOWSHEET FOR DETAILS. PT ANSWERED ALL QUESTIONS APPROPRIATELY AT THIS TIME. PT SEEMS EXTREMELY DROWSY AND HAD TO KEEP AWAKENING HIM. PT DENIES NEEDS AT THIS TIME. NO SIGNS OF ACUTE DISTRESS. WILL CONTINUE TO MONITOR.
--- NOTE | 2018-06-12 21:11 | NUR ---
PT STILL SEEMS DROWSY AT THIS TIME. NO NEEDS NOTED. NO SIGNS OF ACUTE DISTRESS. WILL CONTINUE TO MONITOR.
--- NOTE | 2018-06-12 23:12 | NUR ---
REASSESSMENT COMPLETED, SEE FLOWSHEET FOR DETAILS. PT IS LAYING IN BED CALM AT THIS TIME. NO SIGNS OF ACUTE DISTRESS. WILL CONTINUE TO MONITOR.
[2018-06-13] VITALS (24 sets, daily range): BP systolic 126–198; BP diastolic 61–96
--- NOTE | 2018-06-13 01:12 | NUR ---
PT IS LAYING IN BED CALM AT THIS TIME. NO SIGNS OF ACUTE DISTRESS. WILL CONTINUE TO MONITOR.
--- NOTE | 2018-06-13 03:13 | NUR ---
REASSESSMENT COMPLETED, SEE FLOWSHEET FOR DETAILS. NO ACUTE CHANGES NOTED. PT IS RESTING IN BED WITH EYES CLOSED AT THIS TIME. NO SIGNS OF ACUTE DISTRESS. WILL CONTINUE TO MONITOR.
--- NOTE | 2018-06-13 05:13 | NUR ---
PT SITTING UP IN BED ATTEMPTING TO GET OUT OF BED. GUARD AT BEDSIDE PREVENTING PT FROM GETTING OUT OF BED. PRN MEDICATIONS GIVEN. NO SIGNS OF ACUTE DISTRESS. WILL CONTINUE TO MONITOR.
--- NOTE | 2018-06-13 07:00 | NUR ---
SHIFT ASSESSMENT COMPLETED, PT CARE ASSUMED, MONITORS ON AND WORKING. VITALS STABLE, NO SIGNS/SYMPTOMS OF PAIN OR DISCOMFORT NOTED AT THIS TIME. WILL CONTINUE TO OBSERVE.
[2018-06-13 08:23] LABS: BASOPHILS 0.7 % (0-2); EOSINOPHILS 8.5 % (0-7); HEMATOCRIT 23.8 % (42.0-54.0); HEMOGLOBIN 7.7 g/dL (13.5-17.5); IMMATURE GRANULOCYTES 0.3 % (0-5); LYMPHOCYTES 8.3 % (15-50); MCH 27.7 pg (26.0-34.0); MCHC 32.4 g/dL (31.0-37.0); MCV 85.6 fL (80.0-100.0); MEAN PLATELET VOLUME 9.3 fL (7.4-10.4); MONOCYTES 10.7 % (2-11); NEUTROPHILS 71.5 % (40-80); PLATELET COUNT 165 10x3/uL (130-400); RBC 2.78 10x6/uL (4.20-6.10); RDW 16.2 % (11.5-14.5); WBC 7.6 10x3/uL (4.8-10.8)
[2018-06-13 08:40] LABS: ALBUMIN 2.3 g/dL (3.4-5.0); ANION GAP 15.5 mmol/L (8-16); BILIRUBIN - TOTAL 0.56 mg/dL (0.2-1.3); CALCIUM 7.5 mg/dL (8.5-10.1); POTASSIUM - SERUM 5.5 mmol/L (3.5-5.1); PROTEIN - SERUM 4.9 g/dL (6.4-8.2)
[2018-06-13 08:42] LABS: % SATURATION 31 % (15-55); IRON 46 ug/dl (35-150); TOTAL IRON BIND CAPACITY 145 ug/dl (260-445); UNSAT IRON BIND CAPACITY 99 ug/dl (150-375)
--- NOTE | 2018-06-13 09:00 | NUR ---
HD NURSE AT BEDSIDE, MONIOTRS ON AND WORKING, VITALS STABLE, NO SIGNS/SYMPTOMS OF PAIN OR DISCOMFORT NOTED AT THIS TIME. WILL CONTINUE TO OBSERVE.
--- NOTE | 2018-06-13 09:43 | NUR ---
NUTRITION F/U PT REPORTS GOOD INTAKE RENAL ADA DIET. CURRENT HD. WILL CONTINUE TO PROVIDE DIET, MONITOR PT PROGRESS. RD FOLLOWING
--- NOTE | 2018-06-13 10:29 | MORECARE ---
CASE MANAGEMENT DISCHARGE SUMMARY PATIENT: JUAN STREET UNIT: [id number] ADM DATE: 06/10/18 AGE: 48 : [birth year] SEX: M ROOM/BED: D.2313 AUTHOR: MARY WADE PHYSICIAN: REFERRING PHYSICIAN: LUIS SPANGLER MD DATE OF SERVICE: 06/13/18 Discharge Plan Patient Name: JUAN STRE[address] [facility] [facility] 1970 Planned Disposition: Court\Law Enforcement Anticipated Discharge Date: Discharge Date: Expected LOS: Initial Reviewer: [email or web address] Initial Review Date: 06/10/2018 Generated: 06/13/18 11:29 am Patient Name: JUAN STRE[address] Page [phone] at 1029 All edits/amendments must be made on the electronic document DICTATION DATE: 06/13/18 1029 CHIEF SOLUTION ARCHITECT: MITA 06/13/18 1029 RPT#: [id number] DC DATE: STATUS: ADM IN [facility] [address] [place] [address] END OF REPORT
--- NOTE | 2018-06-13 10:36 | MORECARE ---
CASE MANAGEMENT DISCHARGE SUMMARY PATIENT: JUAN STRE[address] UNIT: [id number] ADM DATE: 06/10/18 AGE: 48 : 70 SEX: M ROOM/BED: D.2313 AUTHOR: MARY WADE PHYSICIAN: REFERRING PHYSICIAN: LUIS SPANGLER MD DATE OF SERVICE: 06/13/18 Discharge Plan Patient Name: JUAN STRE[address] Facility: [facility]:[place] : 1970 Planned Disposition: Court\Law Enforcement Anticipated Discharge Date: Discharge Date: Expected LOS: Initial Reviewer: [email or web address] Initial Review Date: 06/10/2018 Generated: 06/13/18 11:36 am DCP- Discharge Planning Updated by [email or web address]: Carla Agee on 06/13/18 9:[address] LATE ENTRY 06/10/18 @ 1800 Patient Name: JUAN STRE[address] Admission Status: ER Accout number: [id number] Admission Date: 06-10-2018 : 1970 Admission Diagnosis:SEPSIS, UNSPECIFIED ORGANISM Attending: LUIS SPANGLER Current LOS: 3 Anticipated DC Date: Planned Disposition: Court\Law Enforcement Primary Insurance: [place] [employer] Discharge Planning Comments: PATIENT IS A [facility]. HE HAS A GUARD AT BEDSIDE AND WILL RETURN TO DETENTION UPON DISCHARGE Substance Addiction Coordinator: Carla Agee Last DP export: 06/13/18 9:29 a Patient Name: JUAN STRE[address] Page [phone] at 1036 All edits/amendments must be made on the electronic document DICTATION DATE: 06/13/18 1036 ZIPPER SETTER LOCKSTITCH: MITA 06/13/18 1036 RPT#: [id number] DC DATE: STATUS: ADM IN [facility] [address] [place] [address] END OF REPORT
--- NOTE | 2018-06-13 11:00 | NUR ---
PT TURNED AND REPOSITIONED FOR COMFORT, NO SIGNS/SYMPTOMS OF PAIN OR DISCOMFORT NOTED AT THIS TIME. CALL LIGHT WITHIN REACH, WILL CONTINUE TO OBSERVE.
--- NOTE | 2018-06-13 11:13 | OP ---
PATIENT NAME: JUAN STREET MEDICAL RECORD: [id number] :70 LOCATION:[facility] D.2313 ADMISSION DATE:06/10/18 SURGEON: GEE COMER MD DATE OF OPERATION: 06/11/2018 PRINCIPAL DIAGNOSES: Epistaxis, right nostril, probably from posterior nasopharyngeal source. POSTOPERATIVE DIAGNOSES: Epistaxis, right nostril, probably from posterior nasopharyngeal source. PROCEDURE: Placement of a Rhino Rocket balloon type tampon. SURGEON: Gee Comer MD ASSISTANTS: None. BLOOD LOSS: None. The patient had been bleeding out through the left nostril and is now bleeding out through the right nostril. I was asked to see the patient to see what I could offer as far as hemostasis. The patient is combative. He is unable to provide me with a consent. The patient was then seen in his bed. He had some tissue paper shoved up the right nostril. This tissue paper was removed. A well-lubricated Rhino Rocket was then advanced. I inflated the posterior balloon with 4 cc of air and then the anterior balloon with 4 cc of air there. I tugged back on the Rhino Rocket to ensure that it was seated and that the posterior balloon was tamponading nasopharynx. I will plan to keep the Rhino Rocket in place for about 48 hours and then have it removed. TRANSINT:[id number] Voice Confirmation ID: [id number] DOCUMENT ID: [id number] GEE COMER MD at 1113 CC: [id number] DICTATION DATE: 06/12/181836 MANAGER VALUATION: 06/12/182316 ADM IN [place] [id number]
--- NOTE | 2018-06-13 13:00 | NUR ---
PT CLEANED FROM LARGE BM, COMPLETE LINEN CHANGE AND BED BATH DONE AT THIS TIME. MONITORS ON AND WORKING, VITLAS STABLE. CALL LIGHT WITHIN REACH, WILL CONTINUE TO OBSERVE.
--- NOTE | 2018-06-13 15:00 | NUR ---
PT TURNED AND REPOSITONED FOR COMFORT, NO SIGNS/SYMPTOMS OF PAIN OR DISCOMFORT NOTED AT THIS TIME. SEE FLOW SHEET FOR FURTHER DETAILS. WILL CONTIUE TO OBSERVE.
--- NOTE | 2018-06-13 17:00 | NUR ---
PT TURNED AND REPOSITIONED, MONITORS ON AND WORKING, VITALS STABLE. PT RESTING WITHOUT ANY SIGNS/SYMPTOMS OF PAIN OR DISCOMFORT NOTED AT THIS TIME, CALL LIGHT WITHIN REACH, WILL CONTINUE TO OBSERVE.
[2018-06-13 18:42] LABS: HEMATOCRIT 28.5 % (42.0-54.0)
[2018-06-13 18:43] LABS: HEMOGLOBIN 9.6 g/dL (13.5-17.5)
--- NOTE | 2018-06-13 19:00 | NUR ---
ASSESSMENT COMPLTED. SEE FLOW SHEETS FOR ALL FINDINGS. PT AWAKE EATING DINER. DENIES ANY DISCOMFORT AT THIS TIME. SR ON CM. PPP. GUARD AT BEDSIDE. CPOC.
--- NOTE | 2018-06-13 21:00 | NUR ---
PT AWAKE WATCHING TV. SCHEDULED MEDS GIVEN PER ORDER. PT DAVID WELL. CPOC.
--- NOTE | 2018-06-13 23:00 | NUR ---
REASSESSMENT COMPLETED. NO ACUTE CHANGES NOTED ON PT'S STATUS. VSS. CPOC.
[2018-06-14] VITALS (27 sets, daily range): BP systolic 92–148; BP diastolic 56–97
--- NOTE | 2018-06-14 01:00 | NUR ---
PT RESTING QUIELTY WITHOUT DISTRESS. NO NEEDS VOICES, GUARD REMAINS AT BEDSIDE. CPOC.
--- NOTE | 2018-06-14 03:00 | NUR ---
REASSESSMENT COMPLETED. SEE FLOW SHEETS FOR ALL FINDINGS. NO ACUTE SIGNS OF DISTRESS NOTED. VSS. CPOC.
[2018-06-14 04:12] LABS: BASOPHILS 0.6 % (0-2); EOSINOPHILS 11.5 % (0-7); HEMATOCRIT 29.5 % (42.0-54.0); HEMOGLOBIN 9.7 g/dL (13.5-17.5); IMMATURE GRANULOCYTES 0.2 % (0-5); MCH 27.9 pg (26.0-34.0); MCHC 32.9 g/dL (31.0-37.0); MCV 84.8 fL (80.0-100.0); MEAN PLATELET VOLUME 9.5 fL (7.4-10.4); MONOCYTES 12.9 % (2-11); NEUTROPHILS 69.8 % (40-80); PLATELET COUNT 198 10x3/uL (130-400); RBC 3.48 10x6/uL (4.20-6.10); RDW 15.6 % (11.5-14.5); WBC 10.1 10x3/uL (4.8-10.8)
[2018-06-14 04:35] LABS: ALBUMIN 2.5 g/dL (3.4-5.0); ANION GAP 13.6 mmol/L (8-16); BILIRUBIN - TOTAL 0.77 mg/dL (0.2-1.3); CALCIUM 8.1 mg/dL (8.5-10.1); CARBON DIOXIDE 26.1 mmol/L (21.0-32.0); CREATININE - SERUM 7.2 mg/dL (0.6-1.3); POTASSIUM - SERUM 4.7 mmol/L (3.5-5.1); PROTEIN - SERUM 6.1 g/dL (6.4-8.2); VANCOMYCIN - RANDOM 23.8 ug/mL (10.0-20.0)
--- NOTE | 2018-06-14 07:00 | NUR ---
PT RESTING IN BED C CALL GEIGER IN REACH AND GUARD IN ROOM. VSS. O2 AT 2L NC. WILL CONTINUE TO MONITOR.
[2018-06-14 07:30] LABS: APTT 32.1 SECONDS (22.8-39.4); INR 1.07 (0.85-1.17); PROTIME 13.4 SECONDS (11.6-15.0)
[2018-06-14 09:17] LABS: FOLATE (FOLIC ACID) - SERUM 4.1 ng/mL (>3.0)
--- NOTE | 2018-06-14 09:31 | NUR ---
DIALYSIS NURSE HERE TO ADMINISTER DIALYSIS VIA FISTULA.
--- NOTE | 2018-06-14 11:00 | NUR ---
PATIENT RECEIVING DIALYSIS AT THIS TIME. VSS. WILL CONTINUE TO MONITOR
--- NOTE | 2018-06-14 12:54 | NUR ---
DIALYSIS COMPLETE AT THIS TIME. 2 LITERS REMOVED. SYSTOLIC BP 91. WILL CONTINUE TO MONITOR. HOLDING APRESOLINE BP MED. PATIENT NPO SINCE BREAKFAST. NOTIFIED AYAD FROM RADIOLOGY IN CASE FISTULOGRAM TODAY.
--- NOTE | 2018-06-14 13:25 | NUR ---
SELWYN GUERRA CALLED, TALKED TO LORENA PERERA INSTRUCT MUST GET CONSENT FOR A FISTULAGRAM. PT IS UNABLE TO GIVE CONSENT. MOTHER PHONE NUMBER GIVEN [address] [phone]. MOTHER CALLED. WHEN ASKED FOR CONSENT FOR FISTULAGRAM SHE STARTED TO YELL AT ME WHY IS HE ON DIALYSIS. TRY TO EXPLAIN TO MOTHER BUT SHE WILL NOT STOP TALKING TO LET ME TALK. STATES IM NOT GIVING CONSENT HE CAN SIGN IT IF HE WANTS TO. PLACED ON HOLD AND DANILO IVORY IS TALKING TO HER.
--- NOTE | 2018-06-14 13:27 | NUR ---
SPOKE TO PATIENTS MOTHER ON PHONE FOR CONSENTS FOR PROCEDURE SINCE APPARENTLY SIX [employer]MA PROJECT MANAGER AT [facility] IS ONLY TO SIGN CONSENTS IN LIFE OR SITUATIONS. MOTHER IS NOT WILLING TO MAKE ANY DECISIONS ON PATIENTS BEHALF.
--- NOTE | 2018-06-14 15:00 | NUR ---
NURSE RUSLAN VALLES SPOKE TO [facility] ETHICIST JOSE DAVID CORONA ABOUT WHOM TO CONTACT FOR CONSENTS IN THIS SITUATION WITH PRISONER UNABLE TO SIGN OWN CONSENT AND FAMILY MEMBER NOT WILLING TO TAKE RESPONISIBILITY. JOSE DAVID DIRECTED TO CALL PENITENTIARY REHABILITATION PHYSICIAN BACK FOR CONSENTS. REHABILITATION PHYSICIAN DIRECTED ME TO CALL JENNI REID OF THE [facility] FOR CONSENTS. JENNI REID'S QUALITY CONTROL TECHNICIAN EXPLAINED TO ME THAT IN THIS SITUATION IT IS UP TO OUR HOSPITALS POLICY TO DESIGNATE A PHYSICIAN OF THE PATIENT TO SIGN CONENT ON PATIENTS BEHALF. NURSE RV TECHNICIAN HAI CEVALLOS INSTRUCTED TO CALL DR. MOELLER, THE PHYSICIAN WHO ORDERED THE PROCEDURE FOR CONSENT.
--- NOTE | 2018-06-14 15:50 | NUR ---
PAGED DR. MOELLER FOR CONSENTS FOR OPERATION.
--- NOTE | 2018-06-14 16:00 | NUR ---
OBTAINED CONSENT FROM DR. MOELLER OVER PHONE FOR FISTULOGRAM.
--- NOTE | 2018-06-14 16:22 | NUR ---
IR TAKING PATIENT FOR FISTULOGRAM PROCEDURE.
--- NOTE | 2018-06-14 18:20 | NUR ---
PATIENT RETURNED FROM FISTULOGRAM ANGIOPLASTY
--- NOTE | 2018-06-14 18:32 | NUR ---
OBTAINED RECTAL TEMP 97.0. COVERED WITH SEVERAL BLANKETS.
--- NOTE | 2018-06-14 19:30 | NUR ---
RECEIVED CARE OF PT, ASSESSMENT PER FLOWSHEET. PT DISORIENTED TO SITUATION, HR SR ON CM, DRESSING TO LUE CDI-ICE PACK IN PLACE. RT ANKLE CUFF IN PLACE, GUARD AT BEDSIDE, PT ABLE TO REPOSITION SELF, REMINDED TO KEEP LT ARM STRAIGHT-VERBALIZES UNDERSTANDING. SANDWICH TRAY AND DIET SODA PROVIDED PER REQUEST-WILL MONITOR.
--- NOTE | 2018-06-14 21:39 | NUR ---
HS MEDS ADMINISTERED PER MD ORDERS, PT TOLERATED WITHOUT DIFFICULTY, VSS.
--- NOTE | 2018-06-14 23:15 | NUR ---
REASSESSMENT PER FLOWSHEET, NO ACUTE CHANGES NOTED AT THIS TIME. VSS
[2018-06-15] VITALS (24 sets, daily range): BP systolic 103–147; BP diastolic 61–86
--- NOTE | 2018-06-15 01:13 | NUR ---
GUARD REMAINS AT BEDSIDE, PT RESTING WITH EYES CLOSED, ABLE TO REPOSITION SELF.
--- NOTE | 2018-06-15 03:15 | NUR ---
REASSESSMENT PER FLOWSHEET. PT SLEEPING UPON ENTRANCE INTO ROOM, AROUSES EASILY TO VOICE, DENIES PAIN OR ANY NEEDS AT THIS TIME, VSS. GUARD REMAINS AT BEDSIDE, DRESSING TO LUE CDI.
[2018-06-15 04:31] LABS: BASOPHILS 0.4 % (0-2); EOSINOPHILS 15.6 % (0-7); HEMATOCRIT 28.5 % (42.0-54.0); HEMOGLOBIN 9.3 g/dL (13.5-17.5); IMMATURE GRANULOCYTES 0.4 % (0-5); LYMPHOCYTES 10.2 % (15-50); MCH 27.8 pg (26.0-34.0); MCHC 32.6 g/dL (31.0-37.0); MCV 85.1 fL (80.0-100.0); MEAN PLATELET VOLUME 9.9 fL (7.4-10.4); MONOCYTES 5.4 % (2-11); PLATELET COUNT 202 10x3/uL (130-400); RBC 3.35 10x6/uL (4.20-6.10); RDW 15.5 % (11.5-14.5); WBC 9.4 10x3/uL (4.8-10.8)
[2018-06-15 05:19] LABS: ALBUMIN 2.3 g/dL (3.4-5.0); ANION GAP 14.1 mmol/L (8-16); BILIRUBIN - TOTAL 0.54 mg/dL (0.2-1.3); CALCIUM 7.5 mg/dL (8.5-10.1); CARBON DIOXIDE 27.2 mmol/L (21.0-32.0); CREATININE - SERUM 6.3 mg/dL (0.6-1.3); POTASSIUM - SERUM 4.3 mmol/L (3.5-5.1); PROTEIN - SERUM 5.6 g/dL (6.4-8.2); VANCOMYCIN - RANDOM 32.1 ug/mL (10.0-20.0)
--- NOTE | 2018-06-15 07:00 | NUR ---
REC'D CARE OF PT. PLEASANTLY CONFUSED. REORIENTED TO TIME.
--- NOTE | 2018-06-15 07:57 | NUR ---
BREAKFAST TRAY SERVED TO PT. AND GUARD AT BEDSIDE.
--- NOTE | 2018-06-15 10:15 | NUR ---
GETS SELF INDEPENDENTLY UP TO BEDSIDE COMMODE AND BACK TO BED.GUARD AT DOOR.
--- NOTE | 2018-06-15 10:15 | NUR ---
UP TO BEDSIDE COMMODE. HAD LARGE FORMED GREEN STOOL. NO URINE.
--- NOTE | 2018-06-15 10:45 | NUR ---
REASSESSMENT COMPLETED PER FLOW SHEET. NO ACUTE CHANGES.
--- NOTE | 2018-06-15 12:31 | NUR ---
UPDATED DR. SPANGLER ABOUT DR. MCCALL BEING CONSULTED BUT IS NOT TAKING CALL THIS MONTH.
--- NOTE | 2018-06-15 13:44 | NUR ---
LUNCH TRAY SERVED.
--- NOTE | 2018-06-15 14:14 | NUR ---
REASSESSMENT COMPLETED PER FLOW SHEET. NO ACUTE CHANGES.
--- NOTE | 2018-06-15 15:06 | NUR ---
RESTING WITH EYES CLOSED. VSS. GUARD REMAINS AT BEDSIDE.
--- NOTE | 2018-06-15 17:03 | NUR ---
EATING DINNER. VSS.
[2018-06-16] VITALS (24 sets, daily range): BP systolic 104–161; BP diastolic 54–91
[2018-06-16 06:52] LABS: BASOPHILS 0.9 % (0-2); EOSINOPHILS 13.9 % (0-7); HEMATOCRIT 27.2 % (42.0-54.0); HEMOGLOBIN 8.7 g/dL (13.5-17.5); IMMATURE GRANULOCYTES 0.7 % (0-5); LYMPHOCYTES 8.2 % (15-50); MCH 27.7 pg (26.0-34.0); MCV 86.6 fL (80.0-100.0); MEAN PLATELET VOLUME 9.5 fL (7.4-10.4); MONOCYTES 14.1 % (2-11); NEUTROPHILS 62.2 % (40-80); PLATELET COUNT 197 10x3/uL (130-400); RBC 3.14 10x6/uL (4.20-6.10); RDW 15.4 % (11.5-14.5); WBC 8.8 10x3/uL (4.8-10.8)
--- NOTE | 2018-06-16 07:00 | NUR ---
REC'D CARE OF PT. A&O X3.
--- NOTE | 2018-06-16 07:19 | NUR ---
UP TO BEDSIDE COMMODE.
[2018-06-16 07:32] LABS: ALBUMIN 2.1 g/dL (3.4-5.0); ANION GAP 11.5 mmol/L (8-16); BILIRUBIN - TOTAL 0.43 mg/dL (0.2-1.3); CALCIUM 7.1 mg/dL (8.5-10.1); CARBON DIOXIDE 26.8 mmol/L (21.0-32.0); CREATININE - SERUM 6.6 mg/dL (0.6-1.3); POTASSIUM - SERUM 4.3 mmol/L (3.5-5.1); PROTEIN - SERUM 5.2 g/dL (6.4-8.2); VANCOMYCIN - RANDOM 23.8 ug/mL (10.0-20.0)
--- NOTE | 2018-06-16 07:40 | NUR ---
NO IV ACCESS.
--- NOTE | 2018-06-16 07:46 | NUR ---
BACK TO BED INDEPENDENTLY FROM BEDSIDE COMMODE. HAD LARGE GREEN FORMED STOOL AND 100 CC URINE.
--- NOTE | 2018-06-16 09:00 | NUR ---
GUARD REMAINS AT BEDSIDE. PT. RESTING WITH EYES CLOSED. VSS.
--- NOTE | 2018-06-16 10:35 | NUR ---
PIV RESITED AT RIGHT FOREARM.
--- NOTE | 2018-06-16 10:36 | NUR ---
REASSESSMENT COMPLETED PER FLOW SHEET. NO ACUTE CHANGES.
--- NOTE | 2018-06-16 12:00 | NUR ---
EATING LUNCH. DENIES NEEDS.
--- NOTE | 2018-06-16 13:10 | NUR ---
RWESTING WITH EYES CLOSED. VSS.
--- NOTE | 2018-06-16 14:40 | NUR ---
REASSESSMENT COMPLETED PER FLOW SHEET. NO ACUTE CHANGES.
--- NOTE | 2018-06-16 15:28 | NUR ---
GUARD REMIANS AT BEDSIDE. CUFFED TO BED. PT. RESTING QUIETLY. NO COMPLAINTS OR ISSUES.
--- NOTE | 2018-06-16 16:40 | NUR ---
FSBS 165, NO INTERVENTION ORDERED.
--- NOTE | 2018-06-16 18:10 | NUR ---
ATE ALL HIS DINNER. RESTING WITH EYES CLOSED. RESPONSE APPROPRIATLY TO VERBAL STIMULI. DENIES NEEDS.
--- NOTE | 2018-06-16 19:30 | NUR ---
RESUMED CARE OF PT, ASSESSMENT PER FLOWSHEET. PT SLEEPING UPON ENTRANCE INTO ROOM, AROUSES TO VOICE, ORIENTED TO SELF AND PLACE ONLY AT THIS TIME, PPP, LUE DRESSING CDI, HR SR ON CM, DENIES ANY NEEDS AT THIS TIME. RT ANKLE CUFF IN PLACE, GUARD AT BEDSIDE, WILL MONITOR.
--- NOTE | 2018-06-16 21:50 | NUR ---
PT RESTING IN BED WITH EYES CLOSED, BREATHING SHALLOW AND UNLABORED, GUARD AT BEDSIDE, CONT TO MONITOR.
--- NOTE | 2018-06-16 23:30 | NUR ---
REASSESSMENT PER FLOWSHEET, NO ACUTE CHANGESN NOTED AT THIS TIME, PT DENIES PAIN OR ANY NEEDS, VSS, CONT POC.
[2018-06-17] VITALS (23 sets, daily range): BP systolic 103–169; BP diastolic 54–117
--- NOTE | 2018-06-17 01:50 | NUR ---
PT RESTING IN BED WITH EYES CLOSED, AROUSES TO VOICE, DENIES ANY NEEDS, VSS, GUARD AT BEDSIDE, PT ABLE TO REPOSITION SELF.
[2018-06-17 05:09] LABS: BASOPHILS 0.5 % (0-2); EOSINOPHILS 14.5 % (0-7); HEMATOCRIT 26.8 % (42.0-54.0); HEMOGLOBIN 8.7 g/dL (13.5-17.5); IMMATURE GRANULOCYTES 0.8 % (0-5); LYMPHOCYTES 16.5 % (15-50); MCH 27.9 pg (26.0-34.0); MCHC 32.5 g/dL (31.0-37.0); MCV 85.9 fL (80.0-100.0); MEAN PLATELET VOLUME 9.4 fL (7.4-10.4); MONOCYTES 6.9 % (2-11); NEUTROPHILS 60.8 % (40-80); PLATELET COUNT 202 10x3/uL (130-400); RBC 3.12 10x6/uL (4.20-6.10); RDW 15.4 % (11.5-14.5); WBC 9.3 10x3/uL (4.8-10.8)
[2018-06-17 05:28] LABS: ALBUMIN 2.2 g/dL (3.4-5.0); ANION GAP 15.3 mmol/L (8-16); BILIRUBIN - TOTAL 0.33 mg/dL (0.2-1.3); CALCIUM 7.4 mg/dL (8.5-10.1); CARBON DIOXIDE 26.1 mmol/L (21.0-32.0); CREATININE - SERUM 8.1 mg/dL (0.6-1.3); POTASSIUM - SERUM 4.4 mmol/L (3.5-5.1); PROTEIN - SERUM 5.4 g/dL (6.4-8.2); VANCOMYCIN - RANDOM 22.1 ug/mL (10.0-20.0)
--- NOTE | 2018-06-17 07:00 | NUR ---
PT RESTING IN BED C STABLE VS. AWAKE AND ALERT. DISORIENTED TO TIME AND SITUATION. LUNG MONTES CLEAR. LEFT ARM FISTULA WITH BRUIT AND THRILL. NSR WITH ST ELEVATION. WILL OBTAIN EKG. NO COMPLAINTS OF CHEST PAIN.
--- NOTE | 2018-06-17 07:25 | NUR ---
PATIENTS RENAL FUNCTION WORSENING. SCR NOW 8.1 RANDOM VANCOMYCIN LEVEL WAS STILL >20 NO VANCOMYCIN TODAY. CONTINUE TO CHECK RANDOM LEVELS
--- NOTE | 2018-06-17 07:58 | NUR ---
EKG SHOWS NO ST CHANGES, BUT T WAVE INVERSION. CARDIAC ENZYMES ORDERED. WILL CONTINUE TO MONITOR. DR. MOELLER NOTIFIED.
--- NOTE | 2018-06-17 09:29 | NUR ---
PATIENT RESTING IN BED C CALL GEIGER IN WITH CALL GEIGER IN REACH. VSS. GUARD IN ROOM. WILL CONTINUE TO MONITOR.
--- NOTE | 2018-06-17 10:03 | NUR ---
NUTRITION F/U GUARD AT BEDSIDE. NURSING REPORTS PT WITH GOOD INTAKE RENAL ADA DIET. RD FOLLOWING
--- NOTE | 2018-06-17 10:06 | NUR ---
CHANGED PAD UNDER PATIENT AND PULLED UP IN BED. DIALYSIS NURSE HERE TO ADMNISTER DIALYSIS. VSS. WILL CONTINUE TO MONITOR
--- NOTE | 2018-06-17 11:43 | NUR ---
NOTIFIED ASHLEE YEBOAH OF CONSULT TO REMOVE AND CULTURE HEMOSPLIT HD CATHETER. STATED SHE WOULD NOTIFY DR. WILHELM.
--- NOTE | 2018-06-17 12:55 | NUR ---
SPOKE TO DR. QUIROGA ABOUT REMOVING HEMOSPLIT TO RIGHT SUBVLAVIAN. STATED IT IS OKAY TO REMOVE SINCE LEFT ARM FISTULA IS FUNCTIONAL. ALSO TALKED TO DR. WILHELM ABOUT REMOVING IT AND HE STATED HE INTENDS TO DO SO TOMORROW AT SAME TIME OF PERICARDIAL WINDOW PROCEDURE BY DR. COWART.
[2018-06-17 13:39] LABS: ALBUMIN 2.3 g/dL (3.4-5.0); BILIRUBIN - TOTAL 0.4 mg/dL (0.2-1.3); CALCIUM 7.4 mg/dL (8.5-10.1); CARBON DIOXIDE 30.6 mmol/L (21.0-32.0); PROTEIN - SERUM 5.7 g/dL (6.4-8.2)
[2018-06-17 13:41] LABS: ANION GAP 9.9 mmol/L (8-16); APTT 30.8 SECONDS (22.8-39.4); CREATININE - SERUM 4.8 mg/dL (0.6-1.3); POTASSIUM - SERUM 3.5 mmol/L (3.5-5.1)
[2018-06-17 13:53] LABS: INR 1.2 (0.85-1.17); PROTIME 14.7 SECONDS (11.6-15.0)
--- NOTE | 2018-06-17 14:21 | NUR ---
TALKED TO DR. COWART ABOUT PATIENT NOT ABLE TO SIGN CONSENTS, LONGTERM PERSONELL NOT REPRESENTING PATIENT FOR CONSENTS, AND PATIENT'S MOTHER NOT REPRESENTING PATIENT FOR CONSENT. EXPLAINED THAT THE ORDERING PHYSICIANS HAVE BEEN SIGNING CONSENT FOR THE PATIENT THIS HOSPITAL STAY.
--- NOTE | 2018-06-17 14:23 | NUR ---
ALSO TOLD DR. COWART THAT DR. FLETCHER CALLED AND EXPECTS DR. COWART TO SIGN CONSENTS FOR HIS PART OF THE SURGERY.
--- NOTE | 2018-06-17 15:30 | NUR ---
TRANSFERRED PATIENT TO CV02. CONTINUING TO FOLLOW PATIENT IN THIS UNIT. VSS. WILL CONTINUE TO MONITOR
--- NOTE | 2018-06-17 16:45 | NUR ---
INCENTIVE SPIROMETER SCORE RANGED BETWEEN 750 AND 1000CC PER RT. ON 2L NC. O2 SAT 100%.
--- NOTE | 2018-06-17 18:08 | NUR ---
SERVED DINNER TRAY. PATIENT ATE 100%. 1700 MEDS GIVEN. VSS. WILL CONTINUE TO MONITOR.
--- NOTE | 2018-06-17 18:43 | NUR ---
YUSUF RN SPOKE TO DR. COWART ON PHONE ABOUT SLIGHTLY ELEVATED INR. DR. COWART VERBALIZED THAT HE WANTS PATIENT TRANSFERRED BACK TO ICU. CALLED ICU CHARGE NURSE TRA AND TOLD HER DR. WEAVER DESIRE. STATED SHE AND ELIS WILL WORK ON IT.
--- NOTE | 2018-06-17 20:00 | NUR ---
PT TRANSFERRED TO ICU BED 2313 VIA BED. MONITOR EQUIP ESTABLISHED. VSS. OFFICER AT BEDSIDE. PT HANDCUFFED TO BED. PT IS AWAKE AND ALERT. DENIES PAIN. SPEECH IS GARBLED. CALM AND COOPERATIVE AT THIS TIME.
--- NOTE | 2018-06-17 22:50 | NUR ---
SHIFT ASSESSMENT FOR TONIGHT. DATE IS RECORDED INCORRECT. IT SHOWS 06/16 AND IT SHOULD BE 06/17.
[2018-06-18] VITALS (25 sets, daily range): BP systolic 103–201; BP diastolic 51–91
[2018-06-18 04:32] LABS: BASOPHILS 0.6 % (0-2); EOSINOPHILS 9.8 % (0-7); HEMATOCRIT 27.1 % (42.0-54.0); HEMOGLOBIN 8.9 g/dL (13.5-17.5); IMMATURE GRANULOCYTES 0.5 % (0-5); LYMPHOCYTES 6.9 % (15-50); MCH 27.9 pg (26.0-34.0); MCHC 32.8 g/dL (31.0-37.0); MEAN PLATELET VOLUME 9.6 fL (7.4-10.4); MONOCYTES 12.1 % (2-11); NEUTROPHILS 70.1 % (40-80); PLATELET COUNT 219 10x3/uL (130-400); RBC 3.19 10x6/uL (4.20-6.10); RDW 15.3 % (11.5-14.5); WBC 10.6 10x3/uL (4.8-10.8)
[2018-06-18 04:58] LABS: ALBUMIN 2.3 g/dL (3.4-5.0); ANION GAP 14.7 mmol/L (8-16); BILIRUBIN - TOTAL 0.45 mg/dL (0.2-1.3); CALCIUM 7.6 mg/dL (8.5-10.1); CARBON DIOXIDE 26.3 mmol/L (21.0-32.0); PROTEIN - SERUM 5.9 g/dL (6.4-8.2); VANCOMYCIN - RANDOM 17.6 ug/mL (10.0-20.0)
[2018-06-18 05:05] LABS: CREATININE - SERUM 6.8 mg/dL (0.6-1.3)
--- NOTE | 2018-06-18 06:13 | NUR ---
PT CLIPPED, BATH GIVEN, AND LINEN CHANGED. SORTING COWS WORKER MEDS GIVEN. PT UNABLE TO SIGN CONSENTS DUE TO MENTAL STATE. OFFICER REMAINS AT BEDSIDE. PT IS CALM AND COOPERATIVE AT THIS TIME.
--- NOTE | 2018-06-18 07:00 | NUR ---
RECEIVED REPORT FROM OFFGOING NURSE. PATIENT ALREADY TAKEN TO SURGERY FOR PERICARDIAL WINDOW AND HEMOSPLIT REMOVAL.
--- NOTE | 2018-06-18 08:22 | NUR ---
LAKISHA SENT TO LAB PER ORDERS BY DR COWART
--- NOTE | 2018-06-18 08:52 | NUR ---
RECEIVED PATIENT FROM OR AT THIS TIME. PATIENT ON VENTI MASK AT 15 LITERS. ART LINE TO RIGHT RADIAL. LEDY DRAIN TO ABDOMEN AND MIDSTERNAL INCISION DRESSED CLEAN AND DRY. HOOKED UP TO MONITOR. NSR. VSS EXCEPT BP 201/71 PER ART LINE. WILL OBTAIN ORDERS.
--- NOTE | 2018-06-18 09:10 | NUR ---
OBTAINED ORDERS FROM DR. FLETCHER FOR HYDRALAZINE 5MG Q 15 MINUTES UP TO 20 MG.
--- NOTE | 2018-06-18 10:23 | NUR ---
DR. COWART CAME TO SEE PATIENT. UPDATED ON OUTPUT AND ORDERS OBTAINED FOR BP. NO ORDERS GIVEN
--- NOTE | 2018-06-18 10:38 | NUR ---
99% O2 SAT ON 3L O2 SIMPLE MASK. PATIENT STILL VERY LETHARGIC FROM SURGERY.
--- NOTE | 2018-06-18 11:40 | NUR ---
PATIENT RESTING IN BED. WAKES TO STIMULI. BP HAS STABILIZED. 99% O2 SAT ON 2L VIA SIMPLE MASK. STILL SOME SEROSANGUINEOUS FLUID DRAINING FROM MEDIASTINAL LEDY DRAIN. WILL CONTINUE TO MONITOR.
--- NOTE | 2018-06-18 11:47 | NUR ---
CALLED OR TO NOTIFY THAT LAB NEEDS ORDERS FOR THE PERICARDIAL FLUID SPECIMEN THEY RECEIVED POST PERICARDIAL WINDOW.
--- NOTE | 2018-06-18 12:05 | NUR ---
APPLIED SCD HOSE, PLACED NEW PAD UNDERNEATH PATIENT AND PULLED UP IN BED. VSS.
--- NOTE | 2018-06-18 14:01 | NUR ---
REMOVED RIGHT RADIAL ART LINE AT THIS TIME. DR. COWART GAVE OKAY TO REMOVE IT.
[2018-06-18 14:53] LABS: MACROPHAGES BF 5 %; MESOTHELIALS BF 77 %; NEUT - BF 3 %
--- NOTE | 2018-06-18 18:04 | NUR ---
PULLED PATIENT UP IN BED FOR COMFORT. LINENS CLEAN AND DRY. VSS. WAKES TO VOICE.
--- NOTE | 2018-06-18 19:30 | NUR ---
REPORT RECEIVED, INITIAL ASSESSMENT COMPLETE PER FLOW SHEET, MEDS GIVEN PER MAR/ORDERS, ADC GUARD AT BEDSIDE, LLE HANDCUFFED TO BED BY ADC, VSS, WILL CONTINUE TO ASSESS
--- NOTE | 2018-06-18 23:00 | NUR ---
REASSESSMENT COMPLETE PER FLOW SHEET, NO ACUTE S/S OF DISTRESS NOTED, VSS, MEDS GIVEN PER MAR/ORDERS, ADC GUARD AT BEDSIDE, REPOSITIONED FOR COMFORT, VSS, NASH CARE COMPLETED, WILL CONTINUE TO ASSESS
[2018-06-19] VITALS (26 sets, daily range): BP systolic 89–154; BP diastolic 53–86
--- NOTE | 2018-06-19 01:00 | NUR ---
NO ACUTE S/S OF DISTRESS, MEDS GIVEN PER MAR, VSS REPOSITIONED FOR COMFORT
--- NOTE | 2018-06-19 03:09 | NUR ---
PT PULLING AT LINES AND TUBES ATTEMPTING TO REMOVE, PT REMOVED PART OF DRSG OVER INCISION SITE AND WAS ATTEMPTING TO REMOVE LEDY DRAIN, NURSE STOPPED PT AND REMOVED HAND FROM LEDY DRAIN, RAIL CAR UNLOADER ASSISTED TO PLACE PT IN BILAT SOFT WRIST RESTRAINTS, LEDY DRAIN AND INCISION SITE INTACT, COMPLETE DRSG CHANGE ON BOTH SITES USING SAME TYPE OF DRSG THAT WAS PLACED BY PHYSICIAN, PRN MED GIVEN TO CALM PT, VSS, ADC OFFICER AT BEDSIDE, WILL CONTINUE TO ASSESS
--- NOTE | 2018-06-19 05:00 | NUR ---
RESTRAINTS ASSESSED WITH NO SKIN BREAKDOWN NOTED, PT CONTINUES TO PULL AT LINES, PPP, VSS, ADC GUARD AT BEDSIDE, REPOSITIONED FOR COMFORT, SKIN ASSESSED UNDER HANDCUFF PLACED BY ADC ON LLE, SCD'S IN PLACE, HOB ELEVATED, WILL CONTINUE TO ASSESS
[2018-06-19 05:02] LABS: BASOPHILS 0.5 % (0-2); EOSINOPHILS 3.1 % (0-7); HEMATOCRIT 32.5 % (42.0-54.0); IMMATURE GRANULOCYTES 0.4 % (0-5); LYMPHOCYTES 10.8 % (15-50); MCH 28.3 pg (26.0-34.0); MCHC 33.2 g/dL (31.0-37.0); MCV 85.1 fL (80.0-100.0); MEAN PLATELET VOLUME 9.9 fL (7.4-10.4); MONOCYTES 6.3 % (2-11); NEUTROPHILS 78.9 % (40-80); PLATELET COUNT 260 10x3/uL (130-400); RBC 3.82 10x6/uL (4.20-6.10); RDW 15.9 % (11.5-14.5); WBC 11.5 10x3/uL (4.8-10.8)
[2018-06-19 05:10] LABS: HEMOGLOBIN 10.8 g/dL (13.5-17.5)
[2018-06-19 05:27] LABS: ALBUMIN 2.2 g/dL (3.4-5.0); ANION GAP 17.3 mmol/L (8-16); BILIRUBIN - TOTAL 0.41 mg/dL (0.2-1.3); CALCIUM 8.3 mg/dL (8.5-10.1); CARBON DIOXIDE 24.3 mmol/L (21.0-32.0); CREATININE - SERUM 8.3 mg/dL (0.6-1.3); POTASSIUM - SERUM 4.6 mmol/L (3.5-5.1); PROTEIN - SERUM 5.8 g/dL (6.4-8.2); VANCOMYCIN - RANDOM 24.3 ug/mL (10.0-20.0)
--- NOTE | 2018-06-19 07:30 | NUR ---
OPENS EYES TO NAME.NEEDS ENCOURAGEMENT WITH PHYSICAL STIMULATION TO SQUEEZE HANDS AND MOVE FEET. NO DISTRESS NOTED. IV RIGHT LOWER FOREARM WITHOUT REDENSS OR SWELLING, INFUSING WITH NS AT 10 ML HOUR. MONITOR SR. HEAD OF BED ELEBATED 30 DEGREES. NASH CATH PATENT CLOUDY MEDHAT URINE. LEFT UPPER FOREARM FISTULA WITH GOOD BRUIT
--- NOTE | 2018-06-19 09:30 | NUR ---
REPOSTIONED IN BED. DOES NOT TURN SELF. IV RIGHT WRIST WITHOUT REDNESS OR SWELLING NASH CATH PATENT, MINIMAL URINE OUTPUT. MONITOR SR.
--- NOTE | 2018-06-19 09:33 | NUR ---
NUTRITION F/U PT S/P PROCEDURE YESTERDAY. CLEAR LIQUID DIET STARTED>>AAT. WILL MONITOR DIET ADVANCEMENT, PO INTAKE. RD FOLLOWING
--- NOTE | 2018-06-19 11:00 | NUR ---
TAKING PO FLUIDS WELL. PHYSICAL THERAPY HERE UP IN CHAIR AT BEDSIDE. PATIENT DID STAND NEEDS ENCOURAGEMENT TO PIVOT AND SIT IN CHAIR. LEDY DRAIN INTACT. WITH SEROUS DRAINAGE. BULB COMPRESSED. DRESSING DRY AND INTACT. MINIMAL URINE OUTPUT.
[2018-06-19 11:21] LABS: FUNGUS STAIN Final report (())
--- NOTE | 2018-06-19 11:22 | OP ---
PATIENT NAME: JUAN STREET MEDICAL RECORD: [id number] :70 LOCATION:[facility] [id number] ADMISSION DATE:06/10/18 SURGEON: FERNY COWART MD DATE OF OPERATION: 06/18/2018 SURGEON: Ferny Cowart MD SOCIAL WORKER HEALTH SERVICES: Buddy Crawford MD PROCEDURE PERFORMED: Subxiphoid pericardial window. INDICATION: Pericardial effusion and chronic renal failure. POSTOPERATIVE DIAGNOSES: Pericardial effusion and chronic renal failure. ANESTHESIA: General endotracheal anesthesia. ESTIMATED BLOOD LOSS: Minimal. SPECIMENS: 1. A 1 x 1 cm pericardial biopsy for pathology. 2. Pericardial fluid for cytology, aerobic, anaerobic, AFB and fungal cultures. CONDITION: Stable. DISPOSITION: Recovery room and ICU. FINDINGS: 1. Transesophageal echocardiography confirmed a large pericardial effusion. 2. A 1300 cc serous pericardial effusion with slight increase of blood pressure after drainage. PROCEDURE IN DETAIL: The patient was brought to the operating suite. He was prepped prior to induction of anesthesia. Anesthesia was induced, but only minimal decrease in the patient's blood pressure. Transesophageal echocardiography probe was placed and confirmed the pericardial effusion to be circumferential at the subxiphoid region. An incision was made over the xiphoid and a portion of the xiphoid was removed for access. The inferior wall of the pericardial sac was identified and aspirated and then a 1 x 1 cm pericardial biopsy was removed. A total of 1300 cc of fluid were removed. A drain was placed through a separate stab wound and placed on the diaphragmatic surface of the pericardium. Hemostasis was complete. Transesophageal echocardiography confirmed complete drainage. The wound was irrigated. The fascia was closed. Marcaine was instilled. Subcutaneous tissue and skin were closed. Dermabond was placed. The needle and sponge counts reported as correct. Additionally, Dr. Sr of general surgery removed an indwelling dialysis access catheter. The patient is stable. TRANSINT:[id number] Voice Confirmation ID: [id number] DOCUMENT ID: [id number] OPERATIVE REPORT [id number] YENIFERELISEJERARDO FERNY COWART MD at 1122 CC: [id number] DICTATION DATE: 06/18/18 0858 CLOTH HANDLER: 06/18/18 0913 ADM IN [id number] [place] [address]
--- NOTE | 2018-06-19 12:00 | NUR ---
ROCKING IN CHAIR BACK AND FORTH, RETURNED TO BED FOR SAFETY. STILL MOANING, NO INDICATION OF PAIN . STOOD FOR PHSYCIAL THERAPY. GUIDED TO BED.
--- NOTE | 2018-06-19 14:00 | NUR ---
DIALYSIS STARTED. PATIENT STILL ROCKING IN BED. MOANING AT TIMES. HAS STARTED KICKING SOME WITH LEGS.
--- NOTE | 2018-06-19 15:00 | NUR ---
BLAYNE BARBA FOR KICKING, ROCKING AND LOUD MOANING.
--- NOTE | 2018-06-19 15:55 | NUR ---
PATEINT HEART RATE DROPPED TO RATE OF 47 [place]. BLOOD PRESSURE 87/55-98/67. DR. COWART NOTIFIED, DR. MORTENSEN NOTIFIED. DR. QUIROGA PAGED
--- NOTE | 2018-06-19 16:05 | NUR ---
DR. QUIROGA NOTIFIED OF HEART RATE OF 47 AND BLOOD PRESSURE. ORDERS RECEIVED TO STOP DIALYSIS.
--- NOTE | 2018-06-19 17:02 | NUR ---
PATIENT RESTING WELL, WOULD NOT EAT CLEAR LIQUID SUPER TRAY. REPOSITIONED IN BED. PULLED UP IN BED. RESTING WELL
[2018-06-19 18:08] LABS: ACID FAST SMEAR Negative (()); AFB SPECIMEN PROCESSING Not Indicated (())
--- NOTE | 2018-06-19 18:20 | NUR ---
TRIED TO GET PATIENT TO TAKE MEDS OR EAT. WOULD NOT WAKE UP ENOUGH TO SWALLOW ANY PILLS
[2018-06-20] VITALS (36 sets, daily range): BP systolic 86–125; BP diastolic 55–793
--- NOTE | 2018-06-20 00:23 | NUR ---
DR.BOWEN MCPHERSON R/T PT AFIB UNCONTROLLED WITH HR 120-140 ON CM, B/P /, ORDERS RECEIVED FOR MEDICATION BOLUS AND DRIP, SEE MAR/ORDEERS, NO FURTHER AT THIS TIME, WILL CONTINUE TO ASSESS
[2018-06-20 04:24] LABS: BASOPHILS 0.4 % (0-2); EOSINOPHILS 0.6 % (0-7); HEMATOCRIT 31.3 % (42.0-54.0); HEMOGLOBIN 10.4 g/dL (13.5-17.5); IMMATURE GRANULOCYTES 0.3 % (0-5); LYMPHOCYTES 7.2 % (15-50); MCH 28.3 pg (26.0-34.0); MCHC 33.2 g/dL (31.0-37.0); MCV 85.1 fL (80.0-100.0); MEAN PLATELET VOLUME 9.3 fL (7.4-10.4); MONOCYTES 13.7 % (2-11); NEUTROPHILS 77.8 % (40-80); PLATELET COUNT 262 10x3/uL (130-400); RBC 3.68 10x6/uL (4.20-6.10); RDW 16.3 % (11.5-14.5); WBC 10.1 10x3/uL (4.8-10.8)
[2018-06-20 04:45] LABS: BILIRUBIN - TOTAL 0.38 mg/dL (0.2-1.3); CALCIUM 8.3 mg/dL (8.5-10.1); CREATININE - SERUM 8.3 mg/dL (0.6-1.3); PROTEIN - SERUM 6.1 g/dL (6.4-8.2); VANCOMYCIN - RANDOM 27.8 ug/mL (10.0-20.0)
--- NOTE | 2018-06-20 06:45 | NUR ---
PT LOC DECREASED AFTER PRN PAIN MED GIVEN, PAGED WORKFORCE STAFFING ADVISOR PHYSICIAN, LAURA GO APRN CALLED ICU BACK, UPDATE GIVEN ON PT, LAURA STATED THAT WE NEEDED TO CALL RENAL PHYSICIAN FOR PT AND STATED TO GIVE 500ML NS BOLUS. DR. MCGEE CALLED ICU R/T PT AFTER PAGED, UPDATED ON PT STATUS, ORDERS RECEIVED TO GIVE x1 LITER NS BOLUS, MEDS GIVEN PER ORDERS, PT LOC INCREASING WITH EYES OPENING TO VERBAL STIMULI, WILL CONTINUE TO MONITOR
--- NOTE | 2018-06-20 07:00 | NUR ---
ASSESSMENT COMPLETE PER FLOWSHEET.
--- NOTE | 2018-06-20 11:54 | TEE ---
PATIENT:JUAN STREET MEDICAL RECORD: [id number] LOCATION:[facility] AGE OF PATIENT: 48 ADMISSION DATE: 06/10/18 SEX: M REFERRING PHYSICIAN: INTERPRETING PHYSICIAN: LALA BARNES MD TRANSESOPHAGEAL ECHOCARDIOGRAM Date: 06/18/18 FALGUNI CHARGE Y INDICATIONS: PERICARDIAL WINDOW PREMEDICATIONS: PATIENT'S RESPONSE PROCEDURE DOPPLER MEASUREMENTS: LVIT 0 LA 0 PA 0 RA 0 LVOT 0 RVOT 0 Asc. Ao 0 AV Gradient Peak 0 AV Mean 0 AV Area 0 MV Gradient Peak 0 MV Mean 0 MV Area 0 INTERPRETATION: Doppler: 2-D: COLOR FLOW DOPPLER NORMAL SALINE STUDY: MISCELLANOUS: DIAGNOSIS: PLAN: National Sales Representative:2 Dr. Keith Equipment Operator/Laborer: Obey PEÑA COMMENTS: LIMITED STUDY (2-D ONLY) DATE OF SERVICE: 06/18/2018 PROCEDURE: Transesophageal echo evaluation of cardiac and valvular structures during pericardial window procedure. FINDINGS: 1. Left ventricular chamber size is within normal limits. Left ventricular systolic function is normal. Overall ejection fraction estimated at 55% to 60%. 2. Left atrium, right atrium, and right ventricular chamber sizes are within TRANSESOPHAGEAL ECHOCARDIOGRAM REPORT [id number] [address] normal limits. 3. Valvular structures have normal structure and motion. 4. Doppler interrogation reveals no significant valvular insufficiency or stenosis. 5. Large pericardial effusion is present. The patient underwent pericardial window draining relieving the right atrial collapse that was there previously. TRANSINT:[id number] Voice Confirmation ID: [id number] DOCUMENT ID: [id number] at 1154 CC: [id number] DICTATION DATE: 06/18/18 1042 DESIGNER: 06/19/18 0003 ADM IN [facility] [address] [id number]
--- NOTE | 2018-06-20 15:00 | NUR ---
TEMP RECHECKED 95.O ORAL WARM BLANKET APPLIED. GUARD AT BEDSIDE
--- NOTE | 2018-06-20 19:30 | NUR ---
REPORT RECEIVED, SHIFT ASSESSMENT COMPLETE PER FLOW SHEET, PT ON BIPAP @40%FIO2, MEDS INFUSING VIA RIGHT PIV, B/P WITH LEVOPHED DRIP, VSS, NO ACUTE S/S OF DISTRESS, ADC GUARD AT BEDSIDE, SOFT WRIST RESTRAINTS BILAT UPPER EXTREMITIES ASSESSED AND REPOSITIONED, WILL CONTINUE TO ASSESS
--- NOTE | 2018-06-20 22:53 | NUR ---
BIPAP REMOVED PER PT REQUEST, VSS, WILL CONTINUE TO MONITOR
--- NOTE | 2018-06-20 23:00 | NUR ---
REASSESSMENT COMPLETE PER FLOW SHEET, NO ACUTE DISTRESS NOTED, PT WEARING BIPAP, RT TO CHANGE SIZE OF MASK FOR BETTER FIT, VSS, WILL CONTINUE TO ASSESS
[2018-06-21] VITALS (34 sets, daily range): BP systolic 93–152; BP diastolic 54–94
--- NOTE | 2018-06-21 01:00 | NUR ---
PT RESTING IN BED, REPOSITIONED FOR COMFORT, HOB ELEVATED, VSS, GUARD AT BEDSIDE, NO FURTHER NEEDS AT THIS TIME, CONTINUING TO MONITOR
--- NOTE | 2018-06-21 03:00 | NUR ---
REASSESSMENT COMP[LETE PER FLOW SHEET, NO ACUTE DISTRESS NOTED, PT WEARING BIPAP, REPOSITIONED PT AND RESTRAINTS, TITRATING DOWN LEVOPHED TO B/P, PT TOLLERATING DECREASE IN LEVOPHED, VSS ON CM, GUARD AT BEDSIDE, WILL CONTINUE TO ASSESS
[2018-06-21 03:40] LABS: BASOPHILS 0.4 % (0-2); EOSINOPHILS 1.7 % (0-7); HEMATOCRIT 30.2 % (42.0-54.0); IMMATURE GRANULOCYTES 0.4 % (0-5); LYMPHOCYTES 6.2 % (15-50); MCHC 33.1 g/dL (31.0-37.0); MCV 84.6 fL (80.0-100.0); MEAN PLATELET VOLUME 9.3 fL (7.4-10.4); MONOCYTES 14.5 % (2-11); NEUTROPHILS 76.8 % (40-80); PLATELET COUNT 209 10x3/uL (130-400); RBC 3.57 10x6/uL (4.20-6.10); RDW 16.1 % (11.5-14.5); WBC 11.4 10x3/uL (4.8-10.8)
[2018-06-21 03:58] LABS: ALBUMIN 1.8 g/dL (3.4-5.0); ANION GAP 20.8 mmol/L (8-16); BILIRUBIN - TOTAL 0.29 mg/dL (0.2-1.3); CALCIUM 8.4 mg/dL (8.5-10.1); CARBON DIOXIDE 21.6 mmol/L (21.0-32.0); CREATININE - SERUM 9.2 mg/dL (0.6-1.3); POTASSIUM - SERUM 5.4 mmol/L (3.5-5.1); PROTEIN - SERUM 5.7 g/dL (6.4-8.2); VANCOMYCIN - RANDOM 24.2 ug/mL (10.0-20.0)
--- NOTE | 2018-06-21 05:00 | NUR ---
PT RESTING IN BED, NO S/S OF ACUTE DISTRESS, VSS, ON BIPAP, REPOSITIONED UP IN BED, GUARD AT BEDSIDE, WILL CONTINUE TO MONITOR
--- NOTE | 2018-06-21 10:23 | NUR ---
NUTRITION F/U NURSING REPORTS PT WITH POOR PO INTAKE. TAKING MOSTLY LIQUIDS. RENAL MD TO ORDER NEPRO WITH MEALS. RD FOLLOWING
--- NOTE | 2018-06-21 19:05 | NUR ---
PATIENT CARE RECEIVED - DIALYSIS NURSE AT [facility]
--- NOTE | 2018-06-21 21:15 | NUR ---
PT CONTINUES GROANING, PUPILS UNEVEN AND BRISK, UNABLE TO FOLLOW COMMANDS AT THIS TIME. SOFT WRIST RESTRAINTS REMAIN ON TO PROTECT LINES/TUBING. VSS CPOC
--- NOTE | 2018-06-21 23:20 | NUR ---
REASSESSMENT COMPLETED SEE FLOWSHEET
[2018-06-22] VITALS (22 sets, daily range): BP systolic 108–160; BP diastolic 51–90
--- NOTE | 2018-06-22 01:42 | NUR ---
PT RESTING COMFORTABLY, GUARD AT BEDSIDE, EVEN RISE AND FALL OF CHEST CPOC
--- NOTE | 2018-06-22 03:30 | NUR ---
PT FOLLOWING COMMANDS BUT CONTINUES HUMMING/GROANING NOISE, REASSESSMENT COMPLETED SEE FLOWSHEET
[2018-06-22 04:34] LABS: BASOPHILS 0.5 % (0-2); EOSINOPHILS 1.1 % (0-7); HEMATOCRIT 31.6 % (42.0-54.0); HEMOGLOBIN 10.6 g/dL (13.5-17.5); IMMATURE GRANULOCYTES 0.2 % (0-5); LYMPHOCYTES 8.3 % (15-50); MCH 28.1 pg (26.0-34.0); MCHC 33.5 g/dL (31.0-37.0); MCV 83.8 fL (80.0-100.0); MEAN PLATELET VOLUME 9.6 fL (7.4-10.4); MONOCYTES 5.6 % (2-11); NEUTROPHILS 84.3 % (40-80); PLATELET COUNT 234 10x3/uL (130-400); RBC 3.77 10x6/uL (4.20-6.10); WBC 8.6 10x3/uL (4.8-10.8)
[2018-06-22 04:50] LABS: BILIRUBIN - TOTAL 0.35 mg/dL (0.2-1.3); CALCIUM 8.2 mg/dL (8.5-10.1); CARBON DIOXIDE 25.4 mmol/L (21.0-32.0); CREATININE - SERUM 7.1 mg/dL (0.6-1.3); POTASSIUM - SERUM 4.4 mmol/L (3.5-5.1); PROTEIN - SERUM 6.3 g/dL (6.4-8.2); VANCOMYCIN - RANDOM 21.9 ug/mL (10.0-20.0)
--- NOTE | 2018-06-22 05:01 | NUR ---
PT KICKING RIGHT LEG AROUND IN THE AIR, NODDED YES TO PAIN, LEVEL UNASSESSABLE DUE TO MASK LIKE FACE - HEMODYNAMICALLY STABLE - CPOC
--- NOTE | 2018-06-22 07:36 | NUR ---
EYES OPEN, GRUNTS WHEN ASKED QUESTIONS, ON 2LPM VIA NC, EVEN UNLABORED BREATHING, NASH PRESENT, IV TO LEFT FOREARM PATENT, GUARD PRESENT IN ROOM, DENIES ANY CURRENT NEEDS OR DISCOMFORTS, BED LOWERED AND LOCKED CALL LIGHT WITHIN REACH. CPOC
--- NOTE | 2018-06-22 09:31 | NUR ---
Alert, answers some questions verbally, consumed 50% of breakfast, observed some slow response when he swallows, able to swallow just with some difficulties, scd's on and present, soft wrist restraints left and right, skin assessed underneath, no redness or breakdown, denies any needs or discomforts, bed lowered and locked, call light within reach. cpoc
--- NOTE | 2018-06-22 14:33 | NUR ---
AWAKE AND ALERT, MOVING LEGS AROUND IN BED, SCDS' PRESENT, MOANS, INCOMPHRENISBLE SOUNDS, 02 PRESENT AT 2LPM VIA NC, IV IN RIGHT FOREARM, PATENT, INFUSING NS AT 25ML/HR. GOWN CHANGED, NASH CRITCORE PRESENT, DRAINING MEDHAT URINE, BED LOWERED AND LOCKED, CALL LIGHT WITHIN REACH. CPOC
--- NOTE | 2018-06-22 17:00 | NUR ---
PERNIEAL CARE PROVIDED, NO DRAINAGE, NEW STAT LOCK APPLIED TO LEFT THIGH, CRIREGINA NASH PRESENT, ONLY 3ML OUT THIS SHIFT, HOB 45 DEGREES, IV INFUSING IN RIGHT FOREARM WITH NS AT 25 AND AMIODARONE INFUSING AT 16.7ML HOUR. 02 PRESENT AT 2LPM VIA NC, CONTINUE TO POCKET FOOD, CLEANED ORAL CAVITY WITH LEMON GLYCERIN SWABS, SOFT WRIST RESTRAINTS LEFT AND RIGHT, STILL PRESENT, SKIN UNDERNEATH IS CLEAN AND NO SKIN BREAKDOWN, BED LOWERED AND LOCKED, CALL LIGHT WITHIN REACH. CPOC
--- NOTE | 2018-06-22 17:32 | NUR ---
WHEN FEEDING SUPPER TRAY PT POCKETED FOOD, THE FOOD BEGAN TO FLOW OUT OF HIS MOUTH, NO ATTEMPT TO SWALLOW, HE MANUAL FED HIMSELF CHIPS BUT DIDN'T ACTUALLY SWALLOW. I ASKED PT IF HE WAS AWARE HE NEEDED TO SWALLOW AND HE SHOOK HIS HEAD IN A SIDE TO SIDE FASHION INDICATED NO. ENSURE IF IT A PHYSICAL ISSUE OR A COGNITIVE ONE. SPEECH EVAL FOR A SWALLOW STUDY HAS BEEN ORDERED AND SPOKE WITH ROSA EARLY TODAY. THEY ARE AWARE. BED LOWERED AND LOCKED, CALL LIGHT WITHIN REACH. CPOC
--- NOTE | 2018-06-22 19:05 | NUR ---
RECEIVED PATIENT CARE - SHIFT ASSESSMENT COMPLETED SEE FLOWSHEET. PATIENT RESPONDING TO COMMANDS BUT UNABLE TO ANSWER VERBALLY. RIGHT EYE SWOLLEN CLEAR DRAINAGE, PUPIL EQUAL, EVEN AND REACTIVE. GUARD AT BEDSIDE, BILAT SOFT WRIST RESTRAINTS ON AT THIS TIME. VSS CPOC
--- NOTE | 2018-06-22 20:10 | NUR ---
PT ATTEMPTING TO EAT FOOD, POCKETING CHIPS PROVIDED ORAL CARE AND REMOVED REMAINING FOOD FROM MOUTH. PT MOTIOING FOR RESTRAINTS TO BE REMOVED, LOOSENED SLIGHTLY, PATIENT IN CLEAR VIEW OF THE NURSING STATION, INCREASED OBSERVATION AT THIS TIME TO ASSESS NEED FOR RESTRAINTS, ORIENTATION ATTEMPTED TO REMIND PATIENT NOT TO PULL ON IV'S MONITORS AND NASH
--- NOTE | 2018-06-22 21:10 | NUR ---
OBSERVED PATIENT ACTIVE SALIVATION ON CHIN AND CHEST, PT NOD HEAD NO WHEN ASKED IF HE WAS CAPABLE OF SWALLOWING PROVIDED PATIENT WITH SUCTION YAUNKER AND UNTIED 1 WRIST RESTRAINT, CLOSE OBSERVATION, VSS W/ ELEVATED SYSTOLIC NOTED, PHYSICANS AWARE. PATIENT WILL REMAIN NPO FOR NOW
--- NOTE | 2018-06-22 23:15 | NUR ---
REASSESSMENT COMPLETED, PT AWAKE, ATTENTION FOCUSED ON TV ATTEMPTING TO COMMUNICATE NEEDS, REQUESTING FOOD TRAY BACK, EXPLAINED TO PATIENT HE IS UNABLE TO EAT RIGHT NOW DUE TO INABILITY TO SWALLOW. BLOOD SUGAR CHECKED AT THIS TIME 102 - VSS CPOC WILL MONITOR CLOSELY
[2018-06-23] VITALS (26 sets, daily range): BP systolic 102–152; BP diastolic 64–89
--- NOTE | 2018-06-23 00:25 | NUR ---
PATIENT RESTING COMFORTABLY WITH EYES CLOSED - EVEN RISE AND FALL OF CHEST VSS CPOC
--- NOTE | 2018-06-23 00:30 | NUR ---
PT OBSERVED TRYING TO PULL OUT PIV
--- NOTE | 2018-06-23 01:20 | NUR ---
NOTED RHYTHM AND RATE CHANGE EKG COMPLETED AND CARDIOLOGY PAGED AT THIS TIME
--- NOTE | 2018-06-23 01:24 | NUR ---
DR. BARNES CALLED BACK NEW ORDERS RECEIVED
[2018-06-23 03:12] LABS: BASOPHILS 0.6 % (0-2); EOSINOPHILS 1.2 % (0-7); HEMATOCRIT 30.4 % (42.0-54.0); HEMOGLOBIN 9.9 g/dL (13.5-17.5); IMMATURE GRANULOCYTES 0.4 % (0-5); LYMPHOCYTES 5.6 % (15-50); MCHC 32.6 g/dL (31.0-37.0); MEAN PLATELET VOLUME 8.9 fL (7.4-10.4); MONOCYTES 11.8 % (2-11); NEUTROPHILS 80.4 % (40-80); PLATELET COUNT 222 10x3/uL (130-400); RBC 3.54 10x6/uL (4.20-6.10); RDW 16.2 % (11.5-14.5); WBC 9.7 10x3/uL (4.8-10.8)
[2018-06-23 03:25] LABS: MCV 85.9 fL (80.0-100.0)
[2018-06-23 03:28] LABS: ALBUMIN 1.9 g/dL (3.4-5.0); ANION GAP 21.2 mmol/L (8-16); BILIRUBIN - TOTAL 0.34 mg/dL (0.2-1.3); CALCIUM 8.1 mg/dL (8.5-10.1); CARBON DIOXIDE 22.2 mmol/L (21.0-32.0); CREATININE - SERUM 8.3 mg/dL (0.6-1.3); PHOSPHOROUS 7.4 mg/dL (2.5-4.9); POTASSIUM - SERUM 4.4 mmol/L (3.5-5.1); PROTEIN - SERUM 6.1 g/dL (6.4-8.2); VANCOMYCIN - RANDOM 19.3 ug/mL (10.0-20.0)
--- NOTE | 2018-06-23 11:20 | NUR ---
0700 AWAKE MUMBLING SOUNDS WITHOUT PURPOSE DOES NOT ANSWER QUESTIONS FOLLOWS INSTRUCTIONS. GUARD REMAINS AT BEDSIDE RESTRAINTS REMAIN ON
--- NOTE | 2018-06-23 11:25 | NUR ---
0900 RESTING QUIETLY MOUTH CARE PROVIDED CLEANED EYES AND FACE REMAINS NPO AFTER FAILING SWALLOW STUDY, REPOSITIONED IN BED
--- NOTE | 2018-06-23 19:08 | NUR ---
RECEVIED PT CARE, PATIENT STATED "I THOUGHT YOU WERE GONNA TAKE THIS OFF" REFERING TO RESTRAINTS, UNABLE TO ANSWER ORIENTATION QUESTIONS ASIDE FROM NODDING, PT APHASIC. SHIFT ASSESSMENT COMPLETED SEE FLOWSHEET. GUARD AT BEDSIDE, PARTIAL BEDCHANGE AND REPOSITION PERFORMED WITH OFF GOING RN VSS CPOC
--- NOTE | 2018-06-23 22:29 | NUR ---
REASSESSMENT COMPLETED. FACIAL TWITCHING AND DROOL RUNNING FROM PATIENTS MOUTH - CLEANED FACE AND NECK AND PROVIDED ORAL CARE AND SUCTION. PATIENT TRACKING, RIGHT EYE DROOP NOTED. PUPILS REACTIVE AND EQUAL SEE FLOWSHEET
[2018-06-24] VITALS (24 sets, daily range): BP systolic 100–140; BP diastolic 57–92
--- NOTE | 2018-06-24 01:33 | NUR ---
PATIENT RESTING COMFORTABLY GUARD AT BEDSIDE, RESTRAINED - EYES CLOSED EVEN RISE AND FALL OF CHEST. VSS CPOC
--- NOTE | 2018-06-24 03:12 | NUR ---
REASSESSMENT COMPLETED SEE FLOWSHEET
[2018-06-24 04:20] LABS: BASOPHILS 0.7 % (0-2); EOSINOPHILS 2.4 % (0-7); HEMATOCRIT 30.8 % (42.0-54.0); HEMOGLOBIN 10.2 g/dL (13.5-17.5); IMMATURE GRANULOCYTES 0.4 % (0-5); MCHC 33.1 g/dL (31.0-37.0); MCV 84.6 fL (80.0-100.0); MONOCYTES 11.4 % (2-11); NEUTROPHILS 79.1 % (40-80); PLATELET COUNT 194 10x3/uL (130-400); RBC 3.64 10x6/uL (4.20-6.10); RDW 15.7 % (11.5-14.5); WBC 7.4 10x3/uL (4.8-10.8)
[2018-06-24 04:40] LABS: ANION GAP 21.5 mmol/L (8-16); BILIRUBIN - TOTAL 0.37 mg/dL (0.2-1.3); CALCIUM 8.5 mg/dL (8.5-10.1); CREATININE - SERUM 9.7 mg/dL (0.6-1.3); POTASSIUM - SERUM 4.5 mmol/L (3.5-5.1); PROTEIN - SERUM 6.3 g/dL (6.4-8.2); VANCOMYCIN - RANDOM 24.2 ug/mL (10.0-20.0)
--- NOTE | 2018-06-24 05:35 | NUR ---
PT REQUESTING FOOD SPECIFICALLY "SNICKERS BAR" PATIENT HAS SLOBBER RUNNING OUT OF HIS MOUTH - SUCTION AND ORAL CARE PERFORMED
--- NOTE | 2018-06-24 11:02 | NUR ---
Nutrition follow-up: Pt strict NPO due to swallowing problem Labs reviewed WT: 155# Recommend PEG tube placement and Nepro started due to pt not meeting estimated energy needs at this time. RDN following.
--- NOTE | 2018-06-24 11:59 | NUR ---
0700 AWAKE IN BED GUARD AT BEDSIDE ASSESSMENT COMPLETE
--- NOTE | 2018-06-24 12:00 | NUR ---
0900 REQUESTING MAR TREVIÑO. NOTIFIED ITZEL JIMENEZ OF SWALLOW STUDY
--- NOTE | 2018-06-24 12:01 | NUR ---
1100 DIALYSIS INITIATED BY [facility]ARTHI[facility]ORY AT BEDSIDE
--- NOTE | 2018-06-24 13:51 | NUR ---
1300 DIALYSIS ALMOST COMPLETE
--- NOTE | 2018-06-24 13:51 | NUR ---
5192 DIALYSIS COMPLETE PHYSICAL THERAPY PREDENT TO PERFORM EXERCISES
--- NOTE | 2018-06-24 14:09 | NUR ---
1400 REPORT GIVEN TO ALEXY
--- NOTE | 2018-06-24 15:00 | NUR ---
REASSESSMENT COMPLETE PER FLOW SHEET. VSS. NO NEW CHANGES WILL CONTINUE TO MONITOR
--- NOTE | 2018-06-24 17:17 | NUR ---
PT ASSISTED ONTO BEDPAN NO BM NTOED. WILL CONTINUE TO MONITOR
--- NOTE | 2018-06-24 19:00 | NUR ---
REPORT RECEIVED. RECEIVED PATIENT IN BED AWAKE AND ALERT. ORIENTED TO SELF. SPEECH GARBLED/REPETTIVE. ASSESSMENT COMPLETED PER FLOW SHEET WITH NO DISTRESS OBSERVED. MONITORS ATTATCHED TO PT WITH ALARMS SET. VSS. SR UP X 2. GUARD AT BEDSIDE.
--- NOTE | 2018-06-24 21:00 | NUR ---
RESTING WITH EYES CLOSED. EASILY ROUSED AND ALERT. GUARD AT BEDSIDE. NO DISTRESS OBSERVED.
--- NOTE | 2018-06-24 22:00 | NUR ---
IV FLUIDS AND TUBING CHANGED/CURRENT.
--- NOTE | 2018-06-24 23:00 | NUR ---
RESTING WITH EYES CLOSED. EASILY ROUSED AND ALERT. SHIFT RE ASSESSMENT COMPLETED PER FLOW SHEET WITH NO CHANGES OBSERVED. VSS.
[2018-06-25] VITALS (23 sets, daily range): BP systolic 107–158; BP diastolic 57–802
--- NOTE | 2018-06-25 01:28 | NUR ---
RESTING WITH EYES CLOSED EASILY ROUSED AND ALERT. VSS. NO DISTRESS OBSERVED.
--- NOTE | 2018-06-25 03:00 | NUR ---
AWAKE AND ALERT. REASSESSMENT COMPLETED PER FLOW SHEET WITH NO CHANGES OBSERVED. BED BATH/ORAL CARE GIVEN. ASSISTED WITH REPOSITIONING. VSS. NO DISTRESS OBSERVED. GUARD AT BEDSIDE.
--- NOTE | 2018-06-25 05:00 | NUR ---
RESTING WITH EYES CLOSED, ROUSES EASILY. VSS. NO DISTRESS OBSERVED. GUARD AT BEDSIDE.
[2018-06-25 05:26] LABS: BASOPHILS 0.3 % (0-2); EOSINOPHILS 0.9 % (0-7); HEMATOCRIT 31.6 % (42.0-54.0); HEMOGLOBIN 10.7 g/dL (13.5-17.5); IMMATURE GRANULOCYTES 0.2 % (0-5); LYMPHOCYTES 4.1 % (15-50); MCH 28.2 pg (26.0-34.0); MCHC 33.9 g/dL (31.0-37.0); MCV 83.2 fL (80.0-100.0); MEAN PLATELET VOLUME 8.9 fL (7.4-10.4); MONOCYTES 8.3 % (2-11); NEUTROPHILS 86.2 % (40-80); PLATELET COUNT 216 10x3/uL (130-400); RDW 15.5 % (11.5-14.5)
[2018-06-25 05:35] LABS: WBC 9.5 10x3/uL (4.8-10.8)
[2018-06-25 05:47] LABS: ANION GAP 22.1 mmol/L (8-16); BILIRUBIN - TOTAL 0.44 mg/dL (0.2-1.3); CALCIUM 8.5 mg/dL (8.5-10.1); CARBON DIOXIDE 23.2 mmol/L (21.0-32.0); CREATININE - SERUM 8.8 mg/dL (0.6-1.3); PHOSPHOROUS 8.6 mg/dL (2.5-4.9); POTASSIUM - SERUM 4.3 mmol/L (3.5-5.1); PROTEIN - SERUM 6.2 g/dL (6.4-8.2)
--- NOTE | 2018-06-25 07:10 | NUR ---
REPORT RECEIVED. PT RESTING IN BED. GUARD AT BEDSIDE.
[2018-06-25 08:27] LABS: FUNGUS MYCOLOGY CULTURE Preliminary report (())
--- NOTE | 2018-06-25 09:15 | NUR ---
PT PLACED ON BEDPAN, SMALL BM NOTED. GUARD AT BEDSIDE.
--- NOTE | 2018-06-25 10:12 | NUR ---
PT PULLED IV OUT OF RIGHT FOREARM. WILL RESITE.
--- NOTE | 2018-06-25 11:49 | NUR ---
KY WILHELM FOR PEG TUBE PLACEMENT.
--- NOTE | 2018-06-25 12:22 | NUR ---
VASCULAR ACCESS NURSE PLACED NEW IV TO RIGHT FOREARM. PT CLEANED UP AND LINENS CHANGED.
--- NOTE | 2018-06-25 14:40 | NUR ---
PT RESTING IN BED, NO DISTRESS NOTED.
--- NOTE | 2018-06-25 15:10 | OP ---
PATIENT NAME: JUAN STREET MEDICAL RECORD: [id number] :70 LOCATION:D[facility] D.2313 ADMISSION DATE:06/10/18 SURGEON: MILLY WILHELM MD DATE OF OPERATION: 06/18/2018 PREOPERATIVE DIAGNOSES: 1. End-stage renal disease. 2. Diabetes mellitus. 3. Hypertension. 4. Pericardial effusion. POSTOPERATIVE DIAGNOSES: 1. End-stage renal disease. 2. Diabetes mellitus. 3. Hypertension. 4. Pericardial effusion. PROCEDURE: Right IJ HemoSplit catheter removal. SURGEON: Milly Wilhelm MD REPORT OF PROCEDURE: The patient's right chest was prepped and draped in sterile fashion. We dissected around the HemoSplit catheter as the sheath was right at the skin edge. When we were able to pull the sheath from the underlying attachments then at this point, the catheter would easily pull through the tissues. As we pulled the catheter out, then a 5-0 Monocryl was used to make a pursestring suture at the exit to close the skin opening. This was then treated with a pressure dressing. COMPLICATIONS: None. CONDITION: Stable. ANESTHESIA: General endotracheal. BLOOD LOSS: Minimal. TRANSINT:[id number] Voice Confirmation ID: [id number] DOCUMENT ID: [id number] MILLY WILHELM MD at 1510 CC: [id number] DICTATION DATE: 06/18/18 0946 ENROLLMENT NURSE: 06/18/18 1008 ADM IN [id number] [place] [address]
--- NOTE | 2018-06-25 16:50 | NUR ---
PT CLEANED UP, LINEN CHANGED. GUARD AT BEDSIDE. NO OTHER NEEDS AT THIS TIME
--- NOTE | 2018-06-25 18:34 | NUR ---
PT RESTING COMFORTABLY IN BED. GUARD AT BEDSIDE.
--- NOTE | 2018-06-25 19:00 | NUR ---
REPORT RECEIVED. RECEIVED PATIENT IN BED RESTING WITH EYES CLOSED. ROUSES EASILY, ALERT. ORIENTED TO PERSON AND PLACE. SPEECH GARBLED, CLEAR AT TIMES. DENIES PAIN. ASSESSMENT COMPLETED PER FLOW SHEET WITH NO DISTRESS OBSERVED. MONITORS CONNECTED TO PATIENT WITH ALARMS SET. SR UP X 2. GUARD AT BEDSIDE. IV TUBING/FLUIDS LABELED/DATED AND CURRENT.
--- NOTE | 2018-06-25 21:00 | NUR ---
RESTING WITH EYES CLOSED, ROUSES EASILY. VSS. NO DISTRESS OBSERVED. GUARD AT BEDSIDE.
--- NOTE | 2018-06-25 23:00 | NUR ---
REASSESSMENT COMPLETED PER FLOW SHEET WITH NO CHANGES OBSERVED. ASSISTED WITH ORAL CARE AND ENCOURAGED REPOSITIONING. NO DISTRESS OBSERVED. GUARD AT BEDSIDE
[2018-06-26] VITALS (14 sets, daily range): BP systolic 90–147; BP diastolic 64–95
--- NOTE | 2018-06-26 01:00 | NUR ---
RESTING WITH EYES CLOSED, ROUSES EASILY. SR UP X 2. GUARD AT BEDSIDE.
--- NOTE | 2018-06-26 03:00 | NUR ---
RESTING WITH EYES CLOSED, EASILY ROUSED AND ALERT. REASSESSMENT COMPLETED PER FLOW SHEET WITH NO CHANGES OBSERVED. VSS. GUARD AT BEDSIDE. SR UP X 2
--- NOTE | 2018-06-26 04:30 | NUR ---
PT HAD MED LOOSE INCONTINENT BOWEL MOVEMENT/ NAT CARE GIVEN. BED BATH AND ORAL CARE GIVEN. LINENS CHANGED. DAVID WITHOUT DIFF
[2018-06-26 04:38] LABS: BASOPHILS 0.2 % (0-2); EOSINOPHILS 0.2 % (0-7); HEMATOCRIT 28.9 % (42.0-54.0); HEMOGLOBIN 9.7 g/dL (13.5-17.5); IMMATURE GRANULOCYTES 0.3 % (0-5); LYMPHOCYTES 5.2 % (15-50); MCH 27.7 pg (26.0-34.0); MCHC 33.6 g/dL (31.0-37.0); MCV 82.6 fL (80.0-100.0); MEAN PLATELET VOLUME 9.6 fL (7.4-10.4); MONOCYTES 11.5 % (2-11); NEUTROPHILS 82.6 % (40-80); PLATELET COUNT 203 10x3/uL (130-400); RDW 15.7 % (11.5-14.5); WBC 9.9 10x3/uL (4.8-10.8)
[2018-06-26 05:00] LABS: ALBUMIN 1.7 g/dL (3.4-5.0); ANION GAP 21.7 mmol/L (8-16); BILIRUBIN - TOTAL 0.33 mg/dL (0.2-1.3); CALCIUM 7.8 mg/dL (8.5-10.1); CARBON DIOXIDE 22.3 mmol/L (21.0-32.0); CREATININE - SERUM 9.9 mg/dL (0.6-1.3); PROTEIN - SERUM 5.6 g/dL (6.4-8.2)
--- NOTE | 2018-06-26 05:34 | NUR ---
RESTING WITH EYES CLOSED, EASILY ROUSED AND ALERT. VSS. NO DISTRESS OBSERVED. GUARD AT BEDSIDE.
--- NOTE | 2018-06-26 07:40 | NUR ---
SHIFT REPORT RECEIVED. AWAKE AND ALERT. CONFUSED TO TIME AND SITUATION. ON ROOM AIR. MIDSTERNAL DRESSING CDI. VSS. NO FEVER NOTED. HAS 20 PIV R-FOREARM WITH D5NS AT 50ML/HR AND AMIODARONE AT 0.5MG/MIN (17ML/HR). NASH IN PLACE. SCANT AMOUNT OF YELLOW URINE NOTED. SHIFT ASSESSMENT COMPLETED. SAFETY MEASURES IN PLACE. CALL LIGHT IN REACH. WILL CONTINUE TO MONITOR.
--- NOTE | 2018-06-26 09:50 | NUR ---
MODERATE AMOUNT OF BROWN LOOSE STOOL NOTED AT THIS TIME. PERICARE AND NASH CARE PROVIDED. PARTIAL LINEN CHANGE PROVIDED. PULLED UP IN BED AND REPOSITIONED FOR COMFORT. NO FURTHER NEEDS AT THIS TIME. WILL CONTINUE TO MONITOR.
--- NOTE | 2018-06-26 09:50 | NUR ---
NUTRITION F/U PT REMAINS NPO. NOTE POSSIBLE PEG TUBE PLACEMENT. WILL CONTINUE TO MONITOR, PROVIDE TUBE FEEDS WHEN APPROPRIATE. RD FOLLOWING
--- NOTE | 2018-06-26 13:11 | NUR ---
TURNED AND REPOSITIONED. SMALL AMOUNT OF BROWN LOOSE STOOL NOTED AT THIS TIME. PERICARE PROVIDED. NASH CATHETER DC'D AT THIS TIME. NASH CATHETER BAG HAD ABOUT 50CC OF CLOUDY URINE.
--- NOTE | 2018-06-26 13:14 | NUR ---
SPOKE WITH DR. SPANGLER REGARDING STOOL SAMPLE THAT WAS ORDERED ON 06/13. HE SAID TO CANCEL ORDER.
--- NOTE | 2018-06-26 13:28 | NUR ---
SPOKE WITH DR. WILHELM REGARDING CONSULT FOR PEG TUBE PLACEMENT.
--- NOTE | 2018-06-26 14:40 | NUR ---
DR. SPANGLER NOTIFIED THAT PEG TUBE WILL BE PLACED ON SUNDAY. HE ORDERED PROCALAMINE AT 75ML/HR.
--- NOTE | 2018-06-26 15:13 | NUR ---
DISCHARGE INTRUCTIONS GIVEN TO PT AND HIS MOTHER. COPY SIGNED AND PLACED IN CHART. AMBULATED SELF TO PERSONAL VEHICLE. PERSONAL BELONGINGS SENT WITH PT.
--- NOTE | 2018-06-26 17:39 | NUR ---
MODERATE AMOUNT OF LOOSE BROWN STOOL NOTED. PERICARE PROVIDED. PT TRANSFERRED TO ROOM 2133 VIA BED. LELE AT BEDSIDE. RECEIVING NURSE NOTIFIED OF PT ARRIVAL. PERSONAL BELONGINGS SENT WITH PATIENT.
--- NOTE | 2018-06-26 17:52 | NUR ---
PT TRANSFERED FROM ICU TO 2133. PT IS LYING ON RIGHT SIDE. GUARD AT BEDSIDE. FALL PRECAUTIONS IN PLACE. PT ONLY RESPONDS TO DEEP STIMULI. GARBLED SPEECH. PT CURRENTLY DIALIZING. RR EVEN AND UNLABORED ON RA. AMIODORONE INFUSING @16.7ML/HR AND PROCALAMINE INFUSING @75ML/HR VIA R.FOR PIV. PT IS NPO FOR DYSPHAGIA. VSS AND WNL. WILL CTM.
--- NOTE | 2018-06-26 19:30 | NUR ---
PT RECEIVING DIALYSIS. PT IS LAYING IN BED WITH MOUTH OPEN. GUARD AT BEDSIDE. DIALYSIS NURSE AT BED SIDE. PT BEDLOW AND CALL LIGHT IN REACH. NAME AND DATE PLACED ON BOARD. WILL CPOC
[2018-06-27 00:04] VITALS: BP 111/60
--- NOTE | 2018-06-27 02:01 | NUR ---
PT ASLEEP. AROUSES TO PHYSICAL STIMULI. MOUTH BREATHER. ROOM AIR. PROCAL AND AMIODARONE INFUSING ORDERED TO RIGHT FOREARM 20G LEFT AVF BRUIT AND THRILL NOTED. HEART RATE IRREGULAR AT TIMES. PT HAS NO S/S OF DISTRESS. NPO DUE TO DYSPHAGIA. PT HAS A GUARD AT BEDSIDE. BEDLOW AND CALL LIGHT IN REACH. WILL CPOC
--- NOTE | 2018-06-27 04:39 | NUR ---
HUNG NEW PROCAL WITH NEW TUBING INFUSING AT 75 AND NEW NEXTERONE 0.5MG PER HOUR ORDERED. PT MOANING. DENIES ANY PAIN. REPOSITIONED TO LEFT SIDE. PT HAS NO S/S OF DISTRESS. GUARD AT BEDSIDE. PT BEDLOW AND CALL LIGHT IN REACH. WILL CPOC
[2018-06-27 06:04] VITALS: BP 97/52
--- NOTE | 2018-06-27 06:17 | NUR ---
PT RESTING. REPOSITIONED AND PROVIDED ORAL CARE. PT IS A MOUTH BREATHER. PT DENIES ANY NEEDS. NO S/S OF DISTRESS. BEDLOW AND CALL LIGHT IN REACH. PT WILL CALL FOR ASSIST WHEN NEEDED. WILL CPOC
--- NOTE | 2018-06-27 07:15 | NUR ---
REPORT RECIEVED FROM [employer]AD. PATIENT IS LAYING IN BED WITH EYES CLOSED AND BREATHING EVENLY. VSS. WILL CONTINUE WITH PLAN OF CARE. GUARD AT BEDISDE. .
[2018-06-27 07:53] VITALS: BP 113/56
[2018-06-27 11:18] VITALS: BP 121/59
--- NOTE | 2018-06-27 15:00 | NUR ---
PATIENT IS UCHANGED AND VSS. WILL CONTINUE TO MONITOR.
[2018-06-27 15:44] VITALS: BP 95/64
--- NOTE | 2018-06-27 19:45 | NUR ---
RESUMING CARE, PT LAYING IN BED LETHARGIC AND CONFUSED PT HAS, PT HAS RT FA IV RUNNING PROCAL @75 AND AMIODARON DRIP , NO C/O PAIN OR DISTRESS AT THIS TIME GUARD AT BEDSIDE CL IN REACH WILL CONT TO MONITOR
[2018-06-27 20:00] VITALS: BP 118/55
[2018-06-28] VITALS: BP 118/73
[2018-06-28 04:00] VITALS: BP 120/70
[2018-06-28 06:24] LABS: BASOPHILS 0.6 % (0-2); HEMATOCRIT 28.3 % (42.0-54.0); HEMOGLOBIN 9.4 g/dL (13.5-17.5); IMMATURE GRANULOCYTES 0.2 % (0-5); LYMPHOCYTES 10.2 % (15-50); MCH 27.3 pg (26.0-34.0); MCHC 33.2 g/dL (31.0-37.0); MCV 82.3 fL (80.0-100.0); MEAN PLATELET VOLUME 9.3 fL (7.4-10.4); MONOCYTES 7.4 % (2-11); NEUTROPHILS 80.6 % (40-80); PLATELET COUNT 208 10x3/uL (130-400); RBC 3.44 10x6/uL (4.20-6.10); RDW 15.6 % (11.5-14.5); WBC 8.1 10x3/uL (4.8-10.8)
[2018-06-28 06:46] LABS: ANION GAP 24.3 mmol/L (8-16); CALCIUM 8.5 mg/dL (8.5-10.1); CARBON DIOXIDE 19.1 mmol/L (21.0-32.0); CREATININE - SERUM 12.5 mg/dL (0.6-1.3); POTASSIUM - SERUM 4.4 mmol/L (3.5-5.1)
--- NOTE | 2018-06-28 07:30 | NUR ---
A/OX 3. LETHARGIC. DENIES PAIN AT PRESENT TIME. RESP EVEN AND UNLABORED ON ROOM AIR. NO REQUESTS OTHER THAN FOOD. EXPLAINED HE COULD NOT HAVE ANYTHING TO EAT DUE TO NPO STATUS. ASSESSEMENT COMPLETED. BED IN LOW POSITION AND LOCKED. SIDERAILS UP X 2, CALL LIGHT IN REACH. PT IS PRISONER AND GUARD AT BEDSIDE AT ALL TIMES. WILL CONTINUE POC.
[2018-06-28 08:00] VITALS: BP 142/61
--- NOTE | 2018-06-28 11:12 | OP ---
PATIENT NAME: JUAN STREET MEDICAL RECORD: [id number] :70 LOCATION:D. D.2134 ADMISSION DATE:06/10/18 SURGEON: MILLY WILHELM MD DATE OF OPERATION: 06/28/2018 PREOPERATIVE DIAGNOSES: 1. Dysphagia. 2. Coronary artery disease. 3. Hypertension. 4. Diabetes mellitus. 5. End-stage renal disease. POSTOPERATIVE DIAGNOSES: 1. Dysphagia. 2. Coronary artery disease. 3. Hypertension. 4. Diabetes mellitus. 5. End-stage renal disease. PROCEDURE: A 20-Fijian PEG tube placement. SURGEON: Milly Wilhelm MD REPORT OF PROCEDURE: An Olympus endoscope was advanced through the mouth and esophagus. As we entered the stomach, we could see an area on the antrum of the stomach to house our PEG tube. The abdominal wall was prepped and draped in sterile fashion. A total of 5 cc of 1% lidocaine with epinephrine was infused into the surrounding tissues. A skin incision was made on the abdominal wall and an Angiocath was brought through the abdominal wall into the gastric lumen. A wire was advanced through the Angiocath and this was grasped with an Endo-Snare. We then pulled the wire through the patient's mouth and esophagus and affixed this to the PEG tube. The PEG tube was then pulled through the mouth and esophagus and through the anterior abdominal wall until it rested in good position at 2.5-3 cm at the skin. The scope was advanced back through the mouth and esophagus into the stomach and we could see that the PEG tube was in good position with only minimal bleeding around the site. The insufflation was then removed along with the tube. COMPLICATIONS: None. CONDITION: Stable. ANESTHESIA: TIVA. BLOOD LOSS: Minimal. TRANSINT:[id number] Voice Confirmation ID: [id number] DOCUMENT ID: [id number] OPERATIVE REPORT [id number] YENIFERMILLY MENDEZ MD at 1112 CC: [id number] DICTATION DATE: 06/28/18 1017 RETAIL SALES SPECIALIST: 06/28/18 1043 [place] [address]
[2018-06-28 12:00] VITALS: BP 122/62
--- NOTE | 2018-06-28 13:59 | NUR ---
Nutrition follow-up: PEG tube placed and Nepro started Labs reviewed Wt: 149# ProcalAmine PPN infusing @ 75 ml/hr Pt is now assessed with severe malnutrition of acute illness R/T dysphagia AEB ~5% weight loss in 5 days (161# on admit and now 150#); measuralby reduced watchmaker apprentice strength identified; < 50% intake of estimated energy needs for > 5 days. Recommend increase Nepro to goal rate of 50 ml/hr with 25 ml H2O flush Q hour. RDN following.
--- NOTE | 2018-06-28 17:26 | NUR ---
RESTING QUIETLY SOMEWHAT CONFUSED RESP UNLABORED TELEMETRY INTACT SR RATE 62 NAD NOTED
--- NOTE | 2018-06-28 19:05 | NUR ---
AWAKE IN BED NO NOTED DISTRESS. SPEACH IS UNCLEAR AT THIS TIME BUT PT IS ALERT GAJANE IS PRESENT AT BEDSIDE. LCTA NEW PEG NOTED WITH DRSG IN PLACE BOWEL SOUNDS X4
--- NOTE | 2018-06-28 20:19 | NUR ---
BEGAN FEEDINGS AT THIS TIME AT 10 ML PER HOUR AFTER CHECKING TUBE PLACEMENT
[2018-06-28 20:38] VITALS: BP 103/52
[2018-06-29] VITALS: BP 116/59
--- NOTE | 2018-06-29 | NUR ---
I have reviewed this patient and I concur with the Shift Assessment completed by the Licensed Practical Nurse today this shift.
--- NOTE | 2018-06-29 00:28 | NUR ---
INCREASED FEEDING TO 20ML/HOUR
[2018-06-29 04:00] VITALS: BP 113/57
--- NOTE | 2018-06-29 04:40 | NUR ---
increased feeding to 30 ml/hour.. LCTA SKIN WARM AND DRY RESP EVEN AND NONLABORED. CHECK DONE ON PLACEMENT OF TUB
[2018-06-29 05:26] LABS: CALCIUM 8.3 mg/dL (8.5-10.1)
[2018-06-29 05:27] LABS: BASOPHILS 0.5 % (0-2); EOSINOPHILS 1.3 % (0-7); HEMATOCRIT 28.2 % (42.0-54.0); HEMOGLOBIN 9.4 g/dL (13.5-17.5); IMMATURE GRANULOCYTES 0.2 % (0-5); LYMPHOCYTES 11.2 % (15-50); MCH 27.5 pg (26.0-34.0); MCHC 33.3 g/dL (31.0-37.0); MCV 82.5 fL (80.0-100.0); MEAN PLATELET VOLUME 9.4 fL (7.4-10.4); NEUTROPHILS 78.8 % (40-80); PLATELET COUNT 210 10x3/uL (130-400); RBC 3.42 10x6/uL (4.20-6.10); RDW 15.6 % (11.5-14.5)
[2018-06-29 05:28] LABS: ANION GAP 16.8 mmol/L (8-16); CARBON DIOXIDE 24.9 mmol/L (21.0-32.0); CREATININE - SERUM 8.9 mg/dL (0.6-1.3); POTASSIUM - SERUM 3.7 mmol/L (3.5-5.1)
--- NOTE | 2018-06-29 08:00 | NUR ---
AM ROUNDS COMPLETED. PT VSS, PT AAOX2, DISORIENTED TO TIME AND SITUATION. NO S/S OF RR DISTRESS, RR EVEN AND UNLABORED. SECURITY AT BEDSIDE. PT HAS TOLERATED HIS NEPRO VERY WELL, RATE ADJUSTED TO 45ML/HR. PEG TUBE SITE WNL. PROCALAMINE ALSO INFUSING AT 75ML/HR. PT APPEARS LETHARGIC, AROUSE TO VOICE, BUT OBEYS COMMAND. AM MEDS GIVEN VIA PEG-TUBE. PT DENIES ANY FURTHER NEEDS AT THIS TIME. WILL CTM. CL IN REACH, BED IN LOW, SR UP X2.
[2018-06-29 08:18] VITALS: BP 117/62
--- NOTE | 2018-06-29 09:00 | NUR ---
PT HAVE HAD 3 BM THIS AM. AIRPORT TRAFFIC CONTROLLER CLEANED PT UP AND CHANGED PT SHEETS. PT STATES "I DON'T KNOW WHEN I'M READY TO GO." I PUT IN A DEPEND ON PT. PT DENIES ANY FURTHER NEEDS AT THIS TIME. WILL CPOC. SECURITY AT BEDSIDE. CL IN REACH, BED IN LOW, SR UP X2.
[2018-06-29 12:32] VITALS: BP 129/57
[2018-06-29 15:59] VITALS: BP 145/70
--- NOTE | 2018-06-29 16:00 | NUR ---
PT HAVE HAD 6 BM UP UNTIL THIS TIME. PUT IN AN ORDER FOR C-DIFF AND SENT TO THE LAB. NOTIFIED PROVIDER. CHECKED PT RESIDUAL. RESIDUAL LESS THAN 100. FEEDING CONTINUED. CHANGED PT FEEDING BAG AND ADDED 2 CANS OF NEPRO TO PT FEEDING BAG. PT HAS TOLERATED FEEDING WELL SO FAR. WILL CTM. CL IN REACH, BED IN LOW, SR UP X2.
[2018-06-29 20:00] VITALS: BP 132/63
--- NOTE | 2018-06-29 20:01 | NUR ---
EVENING ROUNDS COMPLETED. REPORT RECEIVED. PT LYING IN BED WITH EYES OPEN, RR EVEN AND UNLABORED. BED IN LOW POSITION. GUARD AT BEDSIDE. NO S/S OF DISTRESS NOTED. INTRODUCED SELF TO PT. PT DENIES FURTHER NEEDS AT THIS TIME. CALL LIGHT IN REACH. WILL CTM.
--- NOTE | 2018-06-29 22:49 | NUR ---
RENEWED ORDERED BUPRNEX IV FOR PT COMPLAINTS OF PAIN PER ANDREW CHRISTENSEN NURSE PRACTICIONER
[2018-06-30] VITALS: BP 102/62
[2018-06-30 04:00] VITALS: BP 141/59
[2018-06-30 04:54] LABS: BASOPHILS 0.2 % (0-2); EOSINOPHILS 2.1 % (0-7); HEMATOCRIT 27.8 % (42.0-54.0); HEMOGLOBIN 9.3 g/dL (13.5-17.5); IMMATURE GRANULOCYTES 0.5 % (0-5); LYMPHOCYTES 9.1 % (15-50); MCH 27.5 pg (26.0-34.0); MCHC 33.5 g/dL (31.0-37.0); MCV 82.2 fL (80.0-100.0); MEAN PLATELET VOLUME 8.8 fL (7.4-10.4); NEUTROPHILS 76.1 % (40-80); PLATELET COUNT 203 10x3/uL (130-400); RBC 3.38 10x6/uL (4.20-6.10); RDW 15.4 % (11.5-14.5); WBC 6.6 10x3/uL (4.8-10.8)
[2018-06-30 05:17] LABS: ANION GAP 18.9 mmol/L (8-16); CALCIUM 7.9 mg/dL (8.5-10.1); CARBON DIOXIDE 23.7 mmol/L (21.0-32.0); CREATININE - SERUM 9.8 mg/dL (0.6-1.3); POTASSIUM - SERUM 3.6 mmol/L (3.5-5.1)
--- NOTE | 2018-06-30 05:38 | NUR ---
PT SITTING UP IN BED WITH EYES OPEN, RR EVEN AND UNLABORED. REISDUAL CHECKED LESS THAN 20 MLS NOTED. DENIES FURTHER NEEDS AT THIS TIME. CALL LIGHT INN REACH. WILL CTM.
--- NOTE | 2018-06-30 07:05 | NUR ---
RECEIVED BEDSIDE SHIFT REPORT. ASSUMED CARE OF PATIENT. PATIENT LYING IN BED ON RIGHT LATERAL SIDE. PATIENT WITH GAURD AT BEDSIDE. PATIENT HAS APPROPRIATE VERBAL RESPONSES. PROCAL VIA IV AND TUBE FEEDING VIA GTUBE INFUSING. DIALYSIS PATIENT, RESERVE LEFT ARM. CALL LIGHT WITHIN REACH. NO DISTRESS.
[2018-06-30 09:00] VITALS: BP 147/80
--- NOTE | 2018-06-30 11:47 | NUR ---
TOLERATES FEEDING WELL. 5CC RESIDUAL. PROCALAMINE DISCONTINUED. PATIENT IS AT HIS GOAL OF 50 ML/HR OF NEPRO CONTINUOUS TUBE FEEDING. HOB 45 DEGREES TO PREVENT ASPIRATION. CALL LIGHT WITHIN REACH. NO DISTRESS.
[2018-06-30 12:41] VITALS: BP 126/62
[2018-06-30 15:59] LABS: ANION GAP 20.6 mmol/L (8-16); CALCIUM 7.4 mg/dL (8.5-10.1); CARBON DIOXIDE 21.1 mmol/L (21.0-32.0); CREATININE - SERUM 10.2 mg/dL (0.6-1.3); POTASSIUM - SERUM 3.7 mmol/L (3.5-5.1)
[2018-06-30 16:25] VITALS: BP 116/71
--- NOTE | 2018-06-30 16:34 | NUR ---
WENT TO ANSWER PATIENT CALL LIGHT DUE TO FEEDING TUBE ALARMING. PATIENT AWAKE, LYING IN BED WITH WHITE COLOR SUBSTANCE RUNNING DOWN THE LEFT SIDE OF HIS MOUTH. ASKED PATIENT WHAT HE HAD IN HIS MOUTH AND HE SAID NOTHING. CARES RENDERED. THIS FARM ASSISTANT TURNED AROUND TO SINK TO GET ANOTHER WASH CLOTH AND WHEN TURNED TO FACE PATIENT, PATIENT HAD A BOTTLE OF NEPRO DRINKING IT. PATIENT IS NPO AND ON ASPIRATION PRECAUTIONS. REMOVED NEPRO FROM PATIENT. REORIENTED PATIENT THAT HE CANNOT HAVE ANYTHING BY MOUTH. PICKED THE OTHER NEPRO BOTTLES UP TO MOVE THEM AND FOUND THEY WERE EMPTY. PATIENT DRANK 3 BOTTLES OF NEPRO, EACH BOTTLE 240ML. INCONTINENT CARES RENDERED. LUNGS ASCULTATED. LUNGS CLEAR, O2 SAT 96%. RENAL BAKING FACTORY WORKER CALLED AND INFORMED OF WHAT PATIENT HAS DONE. WILL ORDER CXR FOR AM. DIETARY CALLED AND SPOKE TO MARGARITA. DIETARY WILL BRING 3 MORE BOTTLE TO UNIT. JESSICA AT PATIENT BEDSIDE APOLOGIZED, HE THOUGHT PATIENT WAS ABLE TO DRINK THEM. JESSICA STATED HE WOULD MAKE SURE PATIENT DID NOT DRINK ANYTHING ELSE. THANKED THE JESSICA.
--- NOTE | 2018-06-30 17:30 | NUR ---
ON UNIT AND NOTIFIED OF DRINKING TUBE FEEDING. NO NEW ORDERS.
--- NOTE | 2018-06-30 19:21 | NUR ---
EVENING ROUNDS COMPLETED. REPORT RECEIVED. PT SITTING UP IN BED WITH EYES CLOSED, RR EVEN AND UNLABORED. GUARD AT BEDSIDE. 65 SINUS ON TELEMETRY. BED IN LOW POSITION. NO S/S OF DISTRESS NOTED. CALL LIGHT IN REACH. WILL CTM.
[2018-06-30 20:26] VITALS: BP 142/63
--- NOTE | 2018-06-30 23:39 | NUR ---
I have reviewed this patient and I concur with the Shift Assessment completed by the Licensed Practical Nurse today this shift.
[2018-07-01 01:37] VITALS: BP 131/59
[2018-07-01 05:31] VITALS: BP 145/76
[2018-07-01 06:14] LABS: BASOPHILS 0.4 % (0-2); EOSINOPHILS 3.1 % (0-7); HEMATOCRIT 26.7 % (42.0-54.0); HEMOGLOBIN 8.9 g/dL (13.5-17.5); IMMATURE GRANULOCYTES 0.3 % (0-5); LYMPHOCYTES 6.8 % (15-50); MCHC 33.3 g/dL (31.0-37.0); MCV 80.9 fL (80.0-100.0); MEAN PLATELET VOLUME 9.7 fL (7.4-10.4); MONOCYTES 9.5 % (2-11); NEUTROPHILS 79.9 % (40-80); PLATELET COUNT 233 10x3/uL (130-400); RDW 15.1 % (11.5-14.5); WBC 7.5 10x3/uL (4.8-10.8)
[2018-07-01 06:18] LABS: ANION GAP 21.5 mmol/L (8-16); CALCIUM 7.9 mg/dL (8.5-10.1); CARBON DIOXIDE 20.8 mmol/L (21.0-32.0); CREATININE - SERUM 10.6 mg/dL (0.6-1.3); POTASSIUM - SERUM 3.3 mmol/L (3.5-5.1)
--- NOTE | 2018-07-01 08:00 | NUR ---
RECIEVED BEDSIDE REPORT. AM ROUNDS COMPLETED. PT SLEEPY, BUT AROUSE TO VOICE. VSS, NO S/S OF RR DISTRESS, RR EVEN AND UNLABORED. AM MEDS CRUSHED AND GIVEN VIA PEG TUBE. PT DENIES ANY FURTHER NEEDS FOR COMFORT CARE. WILL CPOC. CL IN REACH, BED IN LOW, SR UPX2.
[2018-07-01 08:23] VITALS: BP 185/71
--- NOTE | 2018-07-01 09:30 | NUR ---
PT OUT FOR DIALYSIS. WILL CPOC.
--- NOTE | 2018-07-01 13:40 | NUR ---
PT BACK FROM DIALYSIS. VSS, AAOX3. PT STILL LETHARGIC AND ONLY AROUSE TO VOICE. WILL CTM. CL IN REACH, BED IN LOW, SR UP X2. SECURITY AT BEDSIDE.
--- NOTE | 2018-07-01 13:57 | NUR ---
Nutrition follow-up: Pt NPO due to aspiration issues PEG tube in place with Nepro infusing @ goal rate of 50 ml/hr. Pt also consumed 3 bottles of Nepro left at bedside. Labs reviewed ProcalAmine PPN discontinued Wt: 155# Pt tolerating TF at goal rate RDN following.
[2018-07-01 16:30] LABS: ANION GAP 16.5 mmol/L (8-16); CALCIUM 7.3 mg/dL (8.5-10.1); POTASSIUM - SERUM 3.5 mmol/L (3.5-5.1)
[2018-07-01 16:32] LABS: CREATININE - SERUM 6.2 mg/dL (0.6-1.3)
[2018-07-01] MEDS ORDERED: VANCOMYCIN 500500 MG IV (17:01)
[2018-07-01] MEDS ORDERED: COREG 3.1253.125 MG PO (17:03)
[2018-07-01] MEDS ORDERED: COZAAR25 MG PO (17:03)
[2018-07-01] MEDS ORDERED: AMIODARONE HCL200 MG PO (17:03)
[2018-07-01 17:17] VITALS: BP 127/59
--- NOTE | 2018-07-01 21:35 | NUR ---
CALLED REPORT TO CARLOS IN [facility]. DC'D PT IV AND PT PEG-TUBE FEEDING. PT TOLERATE WELL. TELEMETRY DC'D AND RETURNED TO [place]. READ DC INSTRUCTION TO PT. PT SIGNED AND VERBALIZED UNDERSTANDING. ALL PT BELONGINGS SENT ALONG WITH [facility] GAJANE AND PT ON DC, PT VSS. HOSPITAL SCRUBS WAS OBTAINED FOR PT PT WHEELED DOWNSTAIRS. PT DC'D.
--- NOTE | 2018-07-03 08:31 | MORECARE ---
CASE MANAGEMENT DISCHARGE SUMMARY PATIENT: JUAN STREET UNIT: [id number] ADM DATE: 06/10/18 AGE: 48 : 70 SEX: M ROOM/BED: D.2134 AUTHOR: MARY WADE PHYSICIAN: REFERRING PHYSICIAN: LUIS SPANGLER MD DATE OF SERVICE: 07/03/18 Discharge Plan Patient Name: JUAN STRE[address] Facility: [facility]:[place] : 1970 Planned Disposition: Court\Law Enforcement Anticipated Discharge Date: 07/02/18 Discharge Date: 07/01/2018 Expected LOS: 22 Initial Reviewer: [email or web address] Initial Review Date: 06/10/2018 Generated: 07/03/18 9:31 am DCP- Discharge Planning Updated by [email or web address]: Carla Agee on 06/13/18 8:[address] LATE ENTRY 06/10/18 @ 1800 Patient Name: JUAN STRE[address] Admission Status: ER Accout number: [id number] Admission Date: 06-10-2018 : 1970 Admission Diagnosis:SEPSIS, UNSPECIFIED ORGANISM Attending: LUIS SPANGLER Current LOS: 3 Anticipated DC Date: Planned Disposition: Court\Law Enforcement Primary Insurance: [place] [employer] Discharge Planning Comments: PATIENT IS A [facility] [employer]. HE HAS A GUARD AT BEDSIDE AND WILL RETURN TO INTERMEDIATE UPON DISCHARGE Hvac Project Engineer: Carla Agee Last DP export: 06/13/18 8:36 a Patient Name: JUAN STRE[address] Page [phone] at 0831 All edits/amendments must be made on the electronic document DICTATION DATE: 07/03/18829 CARPENTER SUPERVISOR WOODEN SHIP: MITA 07/03/18829 RPT#: [id number] DC DATE:07/01/18 STATUS: DIS IN [facility] [address] [place] [address] END OF REPORT
== END 2018-07-01 21:53 | DRG 270 ==
LOC: D.ER 09:43 → D.EDHOLD 11:05 → D.M2 11:05 → D.CVICU 11:05 → D.ICU 11:05 → D.CVICU 11:30 → D.ICU 06-12 10:32 → D.CVICU 06-17 15:06 → D.ICU 06-17 20:09 → D.M2 06-26 17:28
PROVIDERS: Emergency Medicine; General Practice; Internal Medicine; Internal Medicine Nephrology; Thoracic Surgery (Cardiothoracic Vascular Surgery); ADMIT Internal Medicine Nephrology; ATTEND Internal Medicine Nephrology
PROC: 0D9670Z Drainage of Stomach with Drainage Device, Via Natural or Artificial Opening (ICD-10-PCS; 2018-06-10)
PROC: 2Y41X5Z Packing of Nasal Region using Packing Material (ICD-10-PCS; 2018-06-11)
PROC: 057Y3ZZ Dilation of Upper Vein, Percutaneous Approach (ICD-10-PCS; 2018-06-14)
PROC: B51W1ZZ Fluoroscopy of Dialysis Shunt/Fistula using Low Osmolar Contrast (ICD-10-PCS; 2018-06-14)
PROC: 05PY33Z Removal of Infusion Device from Upper Vein, Percutaneous Approach (ICD-10-PCS; 2018-06-18)
PROC: 0W9D0ZZ Drainage of Pericardial Cavity, Open Approach (ICD-10-PCS; principal; 2018-06-18 07:30)
PROC: 0DH63UZ Insertion of Feeding Device into Stomach, Percutaneous Approach (ICD-10-PCS; 2018-06-28)
DX: T80.219A Unspecified infection due to central venous catheter, initial encounter (principal); A41.9 Sepsis, unspecified organism; R65.21 Severe sepsis with septic shock; J96.01 Acute respiratory failure with hypoxia; N18.6 End stage renal disease; I50.21 Acute systolic (congestive) heart failure; I13.2 Hypertensive heart and chronic kidney disease with heart failure and with stage 5 chronic kidney disease, or end stage renal disease; D61.818 Other pancytopenia; I31.3 Pericardial effusion (noninflammatory); G93.40 Encephalopathy, unspecified; Z99.2 Dependence on renal dialysis; Z91.15 Patient's noncompliance with renal dialysis; D63.1 Anemia in chronic kidney disease; E78.5 Hyperlipidemia, unspecified; E87.5 Hyperkalemia; R68.0 Hypothermia, not associated with low environmental temperature; F20.9 Schizophrenia, unspecified; R04.0 Epistaxis; E11.649 Type 2 diabetes mellitus with hypoglycemia without coma; E11.22 Type 2 diabetes mellitus with diabetic chronic kidney disease; R13.10 Dysphagia, unspecified